=== PATIENT | female | born 1950 | race African-American/Black ===

== ENCOUNTER 2016-09-08 01:47 | Inpatient (IN) ==
[2016-09-08] MEDS ORDERED: fentaNYL 100 MCG/2 ML VIAL IM STA (02:10)
[2016-09-08] MEDS ORDERED: KETOROLAC 60 MG/2 ML VIAL IM STA (02:11)
[2016-09-08] MEDS ORDERED: ONDANSETRON 4 MG/2 ML VIAL IM STA (02:11)
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
[2016-09-08] MEDS ORDERED: ONDANSETRON 4 MG/2 ML VIAL ONE (02:40)
[2016-09-08] MEDS ORDERED: fentaNYL 100 MCG/2 ML VIAL ONE (02:40)
[2016-09-08] MEDS ORDERED: KETOROLAC 60 MG/2 ML VIAL IM ONE (02:40)
[2016-09-08] MEDS ORDERED: MORPHINE 2 MG/1 ML SYRINGE IV STA (02:46)
[2016-09-08] MEDS ORDERED: MORPHINE 2 MG/1 ML SYRINGE ONE (03:14)
[2016-09-08] MEDS ORDERED: GLUCAGON 1 MG VIAL IM PRN (03:24)
[2016-09-08] MEDS ORDERED: ONDANSETRON 4 MG/2 ML VIAL IV PRN (03:24)
[2016-09-08] MEDS ORDERED: DEXTROSE 50% 25 GM/50 ML VIAL IV PRN (03:24)
[2016-09-08] MEDS ORDERED: MORPHINE 2 MG/1 ML SYRINGE IV PRN (03:24)
[2016-09-08] MEDS ORDERED: ACETAMINOPHEN 325 MG TABLET PO PRN (03:26)
[2016-09-08] MEDS ORDERED: METHOCARBAMOL 500 MG TABLET PO PRN (03:26)
[2016-09-08] MEDS ORDERED: MECLIZINE 25 MG TABLET PO PRN (03:26)
[2016-09-08] MEDS ORDERED: SODIUM HYPOCHLORITE 0.25% IRRIG 473 ML BOTTLE TOP SCH (03:30)
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
[2016-09-08 04:10] LABS: Basophils % 0.4 % (0.0-0.8); Eosinophils # 0.1 10*3/uL (0.0-0.87); Eosinophils % 1.2 % (0.00-10.9); Hemoglobin 6.7 GM/DL (12.0-16.0); Immature Granulocytes % 0.5 %; Immature Granulocytes Absolute 0.04 #; Lymphocytes # 0.6 10*3/uL (1.4-4.0); Lymphocytes % 8.6 % (21.3-54.2); Mean Corpuscular HGB Conc 29.1 GM/DL (32-36); Mean Corpuscular Hemoglobin 28 PG (27-34); Mean Corpuscular Volume 96.6 FL (87-102); Mean Platelet Volume 10.6 FL (9.6-12.0); Monocytes # 0.6 10*3/uL (0.11-0.8); Monocytes % 7.6 % (1.7-12.7); Neutrophils % 81.7 % (38.7-73.9); Platelet Count 119 T/CUMM (130-400); Red Blood Count 2.38 MC/CUMM (3.8-5.5); Red Cell Distribution Width 16.3 % (9.3-17.3); White Blood Count 7.3 T/CUMM (4-12)
[2016-09-08 04:24] LABS: Calcium 7.8 MG/DL (8.5-10.1); Osmolality,Calculated 287.8 MOS/KG (273-304); Potassium 4.5 MMOL/L (3.5-5.1)
--- NOTE | 2016-09-08 08:17 | XRay Report ---
XR lumbar spine complete Indication: Back pain, history of injury Comparison: With similar appearance Findings: Compression fractures of T11 and L3 are present, the T11 height loss is estimated at 50%. L3 height loss is estimated at 50%. These were present on previous CT abdomen and pelvis. Remaining vertebral body heights and alignment are normal. The disc space heights are well-maintained. Small amount of facet joint degenerative change is present. Impression: No evidence of acute injury seen. Compression fractures are present with similar appearance to previous study. PROCEDURE INTERPRETED AT [facility] DEPARTMENT OF RADIOLOGY Final Report Signed by: Dr. Carlyle Contreras
[2016-09-08] MEDS ORDERED: METOPROLOL TARTRATE 25 MG TABLET PO SCH (09:00)
[2016-09-08] MEDS ORDERED: PANTOPRAZOLE 40 MG TABLET PO SCH (09:00)
[2016-09-08] MEDS ORDERED: ISOSORBIDE MONONITRATE 60 MG TABLET PO SCH (09:00)
[2016-09-08] MEDS ORDERED: AMIODARONE 200 MG TABLET PO SCH (09:00)
[2016-09-08] MEDS: CLOPIDOGREL 75 MG TABLET PO SCH (09:08)
[2016-09-08] MEDS: CHOLECALCIFEROL 1,000 UNIT TABLET PO SCH (09:08)
[2016-09-08] MEDS: PANTOPRAZOLE 40 MG TABLET PO SCH (09:08)
[2016-09-08] MEDS: ASPIRIN EC 81 MG TABLET PO SCH (09:09)
[2016-09-08] MEDS: SUCRALFATE 1 GM TABLET PO SCH ×2 (09:09→21:13)
[2016-09-08] MEDS: INSULIN ASPART PROTAMINE/ASPART 70/30 100 UNIT/ML SUBCUT SCH (09:09)
[2016-09-08] MEDS: INSULIN LISPRO 100 UNIT/ML SUBCUT SCH ×4 (09:10→21:13)
[2016-09-08] MEDS ORDERED: SODIUM CHLORIDE 0.9% 1,000 ML IV ONE (10:43)
[2016-09-08] MEDS ORDERED: SODIUM CHLORIDE 0.9% 250 ML IV PRN (10:43)
--- NOTE | 2016-09-08 11:17 | Pain Management Consult Note ---
Assessment and Plan (1) Compression fracture of L3 lumbar vertebra Status: Acute Assessment and plan: New T11 and L3 VCFx's post fall, have to consider metastatic dz with colon CA. She is on plavix and cannot hold. No options for kypkoplasty at this time. No LE weakness on exam I hate to put her through MRI at this time. Pain stable on [place]. Nothing further to offer at this point. Discussed with patient and . Current Visit: Yes History of Present Illness Chief complaint: Back pain post fall History of present illness: Ms. Fuchs is a 66 year old female we havent seen in a year for spondylosis and radiculitis, now diagnosed with colon CA s/p carotid endarterectomy 2 weeks and on plavix. Fell after weakness at home with onset T/L pain without radiation to legs. Home Medications Medication Instructions Recorded Confirmed Type Meclizine HCl 25 mg PO DAILY PRN 01/19/16 09/08/16 History hydrALAZINE TAB [Apresoline Tab] 100 mg PO TID #90 tablet 01/22/16 09/08/16 Rx Cholecalciferol [Vitamin D3] 1,000 unit PO DAILY 03/28/16 09/08/16 History Insulin Aspart Prot/Asp 70/30 10 unit SUBCUT QAM 03/28/16 09/08/16 History [NovoLOG Mix 70/30] Gabapentin 300 mg PO BEDTIME 03/29/16 09/08/16 History Atorvastatin [Lipitor] 20 mg PO BEDTIME tablet 04/08/16 09/08/16 Rx Amiodarone Tab [Cordarone Tab] 200 mg PO DAILY 06/22/16 09/08/16 History Benzoin Compound Tincture Spr 1 spray TOP DAILY 06/22/16 09/08/16 History [Benzoin Compound Tincture [place]] Epoetin Los [Procrit] 8,000 unit SUBCUT MOWEFR 06/22/16 09/08/16 History Methocarbamol Tab [Robaxin Tab] 500 mg PO TID PRN 06/22/16 09/08/16 History Pantoprazole Tab [Protonix Tab] 40 mg PO DAILY 06/22/16 09/08/16 History Skin Healing Oint (Aquaphor) 1 applic TOP DAILY 06/22/16 09/08/16 History [Aquaphor] Sodium Hypochlorite 0.25% Irr 1 applic TOP DIRECTED 06/22/16 09/08/16 History [[place] 1/2 Strength 0.25% Soln] HYDROcodone/ACETAMIN 7.5-325 1 tablet PO Q4H #14 tablet 07/20/16 09/08/16 Rx [[place] 7.5-325] Sucralfate Tab [Carafate Tab] 1 gm PO DAILY 08/08/16 09/08/16 History Acetaminophen Tab [Tylenol Tab] 650 mg PO Q4H PRN 08/19/16 09/08/16 History Isosorbide Mononitrate [Isosorbide 60 mg PO DAILY 08/19/16 09/08/16 History Mononitrate ER] Metoprolol Tartrate 25 mg PO QAM 08/19/16 09/08/16 History Aspirin [Ecotrin] 81 mg PO DAILY #60 tablet. 08/29/16 09/08/16 Rx Clopidogrel [Plavix] 75 mg PO DAILY #60 tablet 08/29/16 09/08/16 Rx Allergies Allergy/AdvReac Type Severity Reaction Status Date / Time No Known Allergies Allergy Verified 07/20/16 08:09 Medical,Surgical,& Family Hx - Medical History Cardio: History of: CHF, CAD, Hypertension, PVD No history of: [place] Psychological: History of: Anxiety Disorders, Depression Neurology: History of: Seizures, Vertigo HEENT: History of: Eye Problem (related to diabetes), Dental Problems Endocrine: History of: Diabetes Mellitus (IDDM), Diabetes Mellitus (NIDDM), Dyslipidemia Respiratory: History of: Respiratory Problems (chronic sob, chronic cough; congestion today) Renal: History of: Dialysis (CHEST CATHETERS AV FISTULA), Renal Failure, Renal Problems Gastrointestinal: History of: GERD, Hematochezia, Polyps, Gastrointestinal Cancer, GI Problems (HX BLOOD IN STOOL) Musculoskeletal: History of: Back/Neck Problems (Back pain), Degenerative Disk Disease No history of: Amputation Comment Only: Musculoskeletal Problems (ARTHRITIS) Hematology: History of: Anemia (chronic disease) No history of: Blood Transfusion Reaction Reproductive: No history of: Abnormal Pap Smear, Breast Cancer, Reproductive Cancer Other: No history of: Anesthesia Reactions, Cancer - Surgical History Cardiac Surgeries: Sugical HX of: Femoral-Popliteal Bypass Graft, Cardiac Catheterization, Cardiac Surgery (Bypass), Carotid Endarterectomy (08/24/16), Vascular Access Devices (dialysis graft LEFT arm; Dialysis catheters in right subclavin) Thoracic Surgeries: Patient denies;: Organ Transplant, Lobectomy Neurologic Surgeries: Patient denies: Neurologic Surgery HEENT Surgeries: Surgical HX of: Carotid Endarterectomy (08/24/16), Eye Surgery ( BILATERAL cataract sugery) Patient denies: Thyroid Surgery, Tonsilectomy & Adenoidectomy Abdominal Surgeries: Surgical HX of: Colonoscopy (PER DR WATKINS IN JULY), EGD Patient denies: Abdominal Surgery, Appendectomy, Cholecystectomy, Gastric Bypass Surgery, Hernia Repair Reproductive Surgeries: Surgical HX of;: Dilation and Curettage, Gynecologic Surgery Patient denies;: Genitourinary Surgery Orthopedic Surgeries: Surgical HX of;: Spinal Surgery (Injections for pain) Patient denies;: Orthopedic Surgery - Family History Family History: Reports;: Family Cancer (MOTHER (breast)), Family Diabetes ( Mother), Family Heart Disease (sister, brother), Family Hypertension (sister, brother) Denies;: Family Anesthesia Reaction, Family Psychiatric Problems, Family Stroke - Social History Smoking Status: Never smoker Frequency of Alcohol Use: None Type of Drug Use: None Exam - Constitutional Vitals: Period Temp Pulse Resp BP Sys/Willams Pulse Ox Last 24 Hr 97.8 F-98.4 F 57-58 18-18 142-143/42-56 99-99 Results - Labs CBC & BMP: 09/08/16 03:51 09/08/16 03:51 Specialty Discharge - Follow Up or Referrals
--- NOTE | 2016-09-08 12:12 | EKG Report ---
Stationary ECG Study [facility] Test Date: 09/08/2016 10:45:29 AM Pat Name: SIMONE NICKERSON Department: Room: 296 Gender: F Director Corporate: : [id number] Requested by: Sabiha Valentin Order Number: [id number] Reading MD: AARON RALPH Intervals [place] Rate: 39 P: -21 UT: 233 QRS: 98 QRSD: 118 T: 215 QT: 476 QTc: 404 Interpretive Statements SINUS BRADYCARDIA WITH FIRST DEGREE AV BLOCK MODERATE RIGHT AXIS DEVIATION CANNOT RULE OUT INFERIOR INFARCT, AGE UNDETERMINED IF PRESENT ABNORMALITY, POSSIBLE ANTEROLATERAL ISCHEMIA Electronically Signed On 09-12-16 11:51:42 CDT by AARON RALPH [email or web address]
--- NOTE | 2016-09-08 13:03 | Cardiology Consult Note ---
<Stacia Cancino E - Last Filed: 09/08/16 15:11> Assessment and Plan - Time spent with patient Time spent with patient: Greater than 30 minutes (1) Bradycardia Status: Acute Assessment and plan: See plan of care listed below Current Visit: Yes (2) CAD (coronary artery disease) Status: Chronic Assessment and plan: See plan of care listed below Current Visit: No Qualifiers: Coronary Disease-Associated Artery/Lesion type: [place] artery [place] vs. transplanted heart: [place] heart Associated angina: without angina Qualified Code(s): I25.10 - Atherosclerotic heart disease of [place] coronary artery without angina pectoris (3) Diabetes mellitus Status: Chronic Assessment and plan: See plan of care listed below Current Visit: No Qualifiers: Diabetes mellitus type: type 2 Diabetes mellitus complication detail: with chronic kidney disease Diabetes mellitus half-way insulin use: with terminal manager use Chronic kidney disease stage: on chronic dialysis (4) Essential hypertension Status: Chronic Assessment and plan: See plan of care listed below Current Visit: No (5) History of coronary artery bypass surgery Status: Chronic Assessment and plan: See plan of care listed below Current Visit: No (6) Anemia Problem details: transfused on 03/31/16; transfused during hospitalization of Jun 21, 2016 Status: Chronic Current Visit: No Qualifiers: Other causes of anemia: chronic disease, kidney (7) Stage 5 chronic kidney disease Status: Chronic Assessment and plan: See plan of care listed below Current Visit: No (8) PVD (peripheral vascular disease) Status: Chronic Assessment and plan: See plan of care listed below Current Visit: No (9) Atrial fibrillation Status: Chronic Assessment and plan: See plan of care listed below Current Visit: No Qualifiers: Atrial fibrillation type: paroxysmal Qualified Code(s): I48.0 - Paroxysmal atrial fibrillation (10) Dyslipidemia Status: Chronic Assessment and plan: See plan of care listed below Current Visit: No (11) TIA (transient ischemic attack) Status: Inactive Current Visit: No (12) Colon cancer Status: Acute Assessment and plan: See plan of care listed below Current Visit: Yes Qualifiers: Colon location: ascending Qualified Code(s): C18.2 - Malignant neoplasm of ascending colon (13) Status post carotid endarterectomy Status: Chronic Assessment and plan: See plan of care listed below Current Visit: No (14) Compression fracture of L3 lumbar vertebra Status: Acute Assessment and plan: See plan of care listed below Current Visit: Yes History of Present Illness - Data of Consult Patient: known to practice within the last 3 years Consult date: 09/08/16 Requesting Physician: Sabiha Valentin - Consult Narrative Reason for consult: bradycardia History of present illness: MANAGER QUALITY IMPROVEMENT: DR. RALPH Ms. Fuchs is a 66 year old female routinely followed by Dr. Ralph. She was last seen in cardiology clinic August 31, 2016. Risk factors include: Known coronary artery disease (status post CABG November 2005 with ANN to LAD, SVG to RCA , sequential SVG to OM1 and OM 2), hypertension, dyslipidemia, diabetes, sedentary lifestyle, PVD, and obesity. Patient has chronic renal insufficiency requiring hemodialysis, atrial fibrillation. Last cardiac workup ensued March 2016 as she underwent nuclear stress test revealing no evidence of reversible ischemia. This morning, cardiology was consulted for sinus bradycardia and hypotension. Patient had just received metoprolol orally when the condition occurred. Telemetry revealed sinus bradycardia, PVCs. Patient is currently being seen in hemodialysis and her heart rate is improving at this time. I discussed with Dr. Ralph, we will continue to hold her beta blockade. We will continue Amiodarone 200 mg orally daily and monitor closely. Patient denies chest pain, heaviness or tightness. She recently had TIA/stroke requiring right carotid endarterectomy. For this reason, she has been on Plavix. She is also severely anemic. She was found to have colon cancer with active rectal bleeding. She is scheduled for colon resection in a few weeks after Plavix has been discontinued. Unfortunately, patient fell last night at home and has developed a new compression fracture. Dr. Muhammad is seen her but cannot do kyphoplasty due to use of Plavix. Patient has received several units of packed red blood cells this morning. Blood pressure has improved since. ASSESSMENT/PLAN: 1. SINUS BRADYCARDIA -suspect this is not related to her metoprolol dosing. Will hold it continue the amiodarone and follow accordingly 2. HYPOTENSION -resolved after transfusions 3. KNOWN CAD (S/P CABG 2005) -no active complaints of chest pain 4. DYSLIPIDEMIA -continue lipid-lowering agent 5. ESRD ON HD -continue current plan of care 6. PVD -continue current plan of care 7. S/P RIGHT CEA -Dr. Aparicio monitor 8. DIABETIC FOOT ULCER -continue to treat according 9. COLON CANCER WITH RECTAL BLEEDING -on Plavix. 10. ACUTE LOOD LOSS ANEMIA - received transfusions will continue to follow accordingly 11. COMPLRESSION FRACTURE L3 LUMBAR VERTEBRA -appreciate pain management assistance CC: Sabiha Valentin MD - Home Medications and Allergies Home Medications: Home Medications Medication Instructions Recorded Confirmed Type Meclizine HCl 25 mg PO DAILY PRN 01/19/16 09/08/16 History hydrALAZINE TAB [Apresoline Tab] 100 mg PO TID #90 tablet 01/22/16 09/08/16 Rx Cholecalciferol [Vitamin D3] 1,000 unit PO DAILY 03/28/16 09/08/16 History Insulin Aspart Prot/Asp 70/30 10 unit SUBCUT QAM 03/28/16 09/08/16 History [NovoLOG Mix 70/30] Gabapentin 300 mg PO BEDTIME 03/29/16 09/08/16 History Atorvastatin [Lipitor] 20 mg PO BEDTIME tablet 04/08/16 09/08/16 Rx Amiodarone Tab [Cordarone Tab] 200 mg PO DAILY 06/22/16 09/08/16 History Benzoin Compound Tincture Spr 1 spray TOP DAILY 06/22/16 09/08/16 History [Benzoin Compound Tincture [place]] Epoetin Los [Procrit] 8,000 unit SUBCUT MOWEFR 06/22/16 09/08/16 History Methocarbamol Tab [Robaxin Tab] 500 mg PO TID PRN 06/22/16 09/08/16 History Pantoprazole Tab [Protonix Tab] 40 mg PO DAILY 06/22/16 09/08/16 History Skin Healing Oint (Aquaphor) 1 applic TOP DAILY 06/22/16 09/08/16 History [Aquaphor] Sodium Hypochlorite 0.25% Irr 1 applic TOP DIRECTED 06/22/16 09/08/16 History [Dakins 1/2 Strength 0.25% Soln] HYDROcodone/ACETAMIN 7.5-325 1 tablet PO Q4H #14 tablet 07/20/16 09/08/16 Rx [Salix 7.5-325] Sucralfate Tab [Carafate Tab] 1 gm PO DAILY 08/08/16 09/08/16 History Acetaminophen Tab [Tylenol Tab] 650 mg PO Q4H PRN 08/19/16 09/08/16 History Isosorbide Mononitrate [Isosorbide 60 mg PO DAILY 08/19/16 09/08/16 History Mononitrate ER] Metoprolol Tartrate 25 mg PO QAM 08/19/16 09/08/16 History Aspirin [Ecotrin] 81 mg PO DAILY #60 tablet. 08/29/16 09/08/16 Rx Clopidogrel [Plavix] 75 mg PO DAILY #60 tablet 08/29/16 09/08/16 Rx Allergies/Adverse Reactions: Allergies Allergy/AdvReac Type Severity Reaction Status Date / Time No Known Allergies Allergy Verified 07/20/16 08:09 Review of systems: REVIEW OF SYSTEMS: - Constitutional Constitutional: Present: Fatigue. Absent: syncope, anorexia, night sweats - EENT Eyes: Absent: blurry vision, loss of vision, diplopia Ears: Absent: decreased hearing, ear pain, ear discharge - Cardiovascular Cardiovascular: Denies: chest pain with exertion, dyspnea on exertion, edema, palpitations. Absent: chest pain with deep breath, claudication - Respiratory Respiratory: Denies [place], cough. Absent: wheezing, hemoptysis, change in phlegm color - Gastrointestinal Gastrointestinal: Present: constipation. Absent: abdominal pain, hematemesis , hematochezia, melena, change in bowel habits, nausea - Genitourinary Genitourinary: Absent: difficulty urinating, dysuria, urinary hesitancy, flank pain - Musculoskeletal Musculoskeletal: Present: back pain Absent: joint swelling, muscle cramps, muscle weakness - Neurological Neurological: Present: Abnormal gait with frequent falls. Absent: dizziness, hemiparesis - Psychiatric Psychiatric: Absent: anxiety, depression, difficulty concentrating - Endocrine Endocrine: Present: fatigue. Absent: cold intolerance, heat intolerance, polyuria, polyphagia, polydipsia - Hematologic/Lymphatic Hematologic/Lymphatic: Present: easy bruising. Absent: easy bleeding, easy bruisability -Integumentary Integumentary: Continued poor healing of the bilateral lower extremity absent: lesions, rashes Medical,Surgical,& Family Hx - Medical History Cardio: History of: CHF, CAD, Hypertension, PVD No history of: PA Psychological: History of: Anxiety Disorders, Depression Neurology: History of: Seizures, Vertigo HEENT: History of: Eye Problem (related to diabetes), Dental Problems Endocrine: History of: Diabetes Mellitus (IDDM), Diabetes Mellitus (NIDDM), Dyslipidemia Respiratory: History of: Respiratory Problems (chronic sob, chronic cough; congestion today) Renal: History of: Dialysis (CHEST CATHETERS AV FISTULA), Renal Failure, Renal Problems Gastrointestinal: History of: GERD, Hematochezia, Polyps, Gastrointestinal Cancer, GI Problems (HX BLOOD IN STOOL) Musculoskeletal: History of: Back/Neck Problems (Back pain), Degenerative Disk Disease No history of: Amputation Comment Only: Musculoskeletal Problems (ARTHRITIS) Hematology: History of: Anemia (chronic disease) No history of: Blood Transfusion Reaction Reproductive: No history of: Abnormal Pap Smear, Breast Cancer, Reproductive Cancer Other: No history of: Anesthesia Reactions, Cancer - Surgical History Cardiac Surgeries: Sugical HX of: Femoral-Popliteal Bypass Graft, Cardiac Catheterization, Cardiac Surgery (Bypass), Carotid Endarterectomy (08/24/16), Vascular Access Devices (dialysis graft LEFT arm; Dialysis catheters in right subclavin) Thoracic Surgeries: Patient denies;: Organ Transplant, Lobectomy Neurologic Surgeries: Patient denies: Neurologic Surgery HEENT Surgeries: Surgical HX of: Carotid Endarterectomy (08/24/16), Eye Surgery ( BILATERAL cataract sugery) Patient denies: Thyroid Surgery, Tonsilectomy & Adenoidectomy Abdominal Surgeries: Surgical HX of: Colonoscopy (PER DR WATKINS IN JULY), EGD Patient denies: Abdominal Surgery, Appendectomy, Cholecystectomy, Gastric Bypass Surgery, Hernia Repair Reproductive Surgeries: Surgical HX of;: Dilation and Curettage, Gynecologic Surgery Patient denies;: Genitourinary Surgery Orthopedic Surgeries: Surgical HX of;: Spinal Surgery (Injections for pain) Patient denies;: Orthopedic Surgery - Family History Family History: Reports;: Family Cancer (MOTHER (breast)), Family Diabetes ( Mother), Family Heart Disease (sister, brother), Family Hypertension (sister, brother) Denies;: Family Anesthesia Reaction, Family Psychiatric Problems, Family Stroke - Social History Smoking Status: Never smoker Have you smoked in the last 12 months: No Frequency of Alcohol Use: None Type of Drug Use: None Physical Examination Vital Signs Temp Pulse Resp BP Pulse Ox 98 F 55 L 20 115/48 97 09/08/16 01:47 09/08/16 01:47 09/08/16 01:47 09/08/16 01:47 09/08/16 01:47 General: [Chronically ill but in no apparent distress.] [Pleasant and cooperative. ] [Appears comfortable.] HEENT: [Bilateral arcus, normocephalic, atraumatic. Mucous membranes moist. No jaundice noted. Conjunctiva moist and clear, sclerae anicteric] Neck: No obvious JVD/HJR, no thyromegaly or lymphadenopathy noted. No carotid bruit appreciated. Right neck incision healing well without dehiscence or drainage Cardiac: [Regular rate and rhythm.] [No obvious murmur rub or gallop.] Lungs: [Clear to auscultation without accessory muscle use to assist the respiratory pattern.] Not requiring oxygen Abdomen: Soft, bowel sounds normoactive. Nontender and nondistended. No abdominal bruit or thrill noted. Musculoskeletal: No fluid collection. Decreased range of motion is noted. Extremities: No clubbing, cyanosis noted. [ No edema noted.] Upper extremity pulses 2+. Bilateral lower extremities wrapped in bandages. Capillary refill sluggish. Skin: No unusual lesions or rashes. No skin breakdown appreciated. Neuro: Awake, alert and oriented 3. Moves all extremities well without hemiparesis or paralysis. No essential tremor is appreciated. Result/EKG - Labs CBC & BMP: 09/08/16 03:51 09/08/16 12:27 Lab Results: I have reviewed the past 24 hour labs Labs: Laboratory Results - last 24 hr 09/08/16 09/08/16 09/08/16 03:51 03:51 07:13 WBC 7.3 RBC 2.38 L Hgb 6.7 L Hct 23.0 L MCV 96.6 MCH 28 MCHC 29.1 L RDW 16.3 Plt Count 119 L MPV 10.6 Neut % (Auto) 81.7 H Lymph % (Auto) 8.6 L Nance % (Auto) 7.6 Eos % (Auto) 1.2 Baso % (Auto) 0.4 Neut # (Auto) 6.0 Lymph # (Auto) 0.6 L Nance # (Auto) 0.6 Eos # (Auto) 0.1 Baso # (Auto) 0.0 Immature Gran % 0.5 Nucleated RBC % 0.0 Immature Gran # 0.04 Nucleated RBCs # 0.00 Sodium 137 Potassium 4.5 Chloride 99 Carbon Dioxide 29 Anion Gap 13.5 BUN 31 H Creatinine 4.60 H GFR Calculation 13 BUN/Creatinine Ratio 6.00 Glucose 235 H POC Glucose 213 H Calculated Osmolality 287.8 Calcium 7.8 L Blood Type Antibody Screen Crossmatch 09/08/16 09/08/16 09/08/16 12:30 12:54 Unknown WBC RBC Hgb Hct MCV MCH MCHC RDW Plt Count MPV Neut % (Auto) Lymph % (Auto) Nance % (Auto) Eos % (Auto) Baso % (Auto) Neut # (Auto) Lymph # (Auto) Nance # (Auto) Eos # (Auto) Baso # (Auto) Immature Gran % Nucleated RBC % Immature Gran # Nucleated RBCs # Sodium Potassium Chloride Carbon Dioxide Anion Gap BUN Creatinine GFR Calculation BUN/Creatinine Ratio Glucose POC Glucose 58 L 126 H Calculated Osmolality Calcium Blood Type B POSITIVE Antibody Screen Negative Crossmatch See Detail - EKG EKG results: interpreted by me EKG shows: bradycardia Specialty Discharge - Follow Up or Referrals <Aravind Ralph - Last Filed: 09/08/16 16:31> History of Present Illness - Consult Narrative History of present illness: Patient personally interviewed and examined and chart reviewed. Discussed the patient's case with Stacia Cancino NP. Agree with a history, examination assessment. Ms. Fuchs is a 66 year old female well known to me with multiple medical problems including coronary disease. The last few months she has had a cardiac perfusion study that was unremarkable and stable. There is no perfusion abnormalities. As noted the patient was admitted with severe back pain. This morning she was noted to have some bradycardia then review the chart may have well been secondary to her morning metoprolol. We will hold her metoprolol and continue other medications and monitor heart rates. She also severely anemic and has received blood on dialysis today. Her potassium was low is being replaced. We will continue her amiodarone at this time with her history of atrial fibrillation. CC: Sabiha Valentin MD Physical Examination Vital Signs Temp Pulse Resp BP Pulse Ox 98 F 55 L 20 115/48 97 09/08/16 01:47 09/08/16 01:47 09/08/16 01:47 09/08/16 01:47 09/08/16 01:47 Result/EKG - Labs CBC & BMP: 09/08/16 03:51 09/08/16 12:27 Labs: Laboratory Results - last 24 hr 09/08/16 09/08/16 09/08/16 03:51 03:51 07:13 WBC 7.3 RBC 2.38 L Hgb 6.7 L Hct 23.0 L MCV 96.6 MCH 28 MCHC 29.1 L RDW 16.3 Plt Count 119 L MPV 10.6 Neut % (Auto) 81.7 H Lymph % (Auto) 8.6 L Nance % (Auto) 7.6 Eos % (Auto) 1.2 Baso % (Auto) 0.4 Neut # (Auto) 6.0 Lymph # (Auto) 0.6 L Nance # (Auto) 0.6 Eos # (Auto) 0.1 Baso # (Auto) 0.0 Immature Gran % 0.5 Nucleated RBC % 0.0 Immature Gran # 0.04 Nucleated RBCs # 0.00 Sodium 137 Potassium 4.5 Chloride 99 Carbon Dioxide 29 Anion Gap 13.5 BUN 31 H Creatinine 4.60 H GFR Calculation 13 BUN/Creatinine Ratio 6.00 Glucose 235 H POC Glucose 213 H Calculated Osmolality 287.8 Calcium 7.8 L Magnesium Free T4 TSH 3rd Generation Blood Type Antibody Screen Crossmatch 09/08/16 09/08/16 09/08/16 12:27 12:27 12:30 WBC RBC Hgb Hct MCV MCH MCHC RDW Plt Count MPV Neut % (Auto) Lymph % (Auto) Nance % (Auto) Eos % (Auto) Baso % (Auto) Neut # (Auto) Lymph # (Auto) Nance # (Auto) Eos # (Auto) Baso # (Auto) Immature Gran % Nucleated RBC % Immature Gran # Nucleated RBCs # Sodium 140 Potassium 3.4 L Chloride 102 Carbon Dioxide 30 Anion Gap 11.4 BUN 24 H Creatinine 3.30 H GFR Calculation 19 BUN/Creatinine Ratio 7.00 Glucose 62 L POC Glucose 58 L Calculated Osmolality 280.4 Calcium 7.4 L Magnesium 2.2 Free T4 1.22 TSH 3rd Generation 0.636 Blood Type Antibody Screen Crossmatch 09/08/16 09/08/16 09/08/16 12:54 15:31 Unknown WBC RBC Hgb Hct MCV MCH MCHC RDW Plt Count MPV Neut % (Auto) Lymph % (Auto) Nance % (Auto) Eos % (Auto) Baso % (Auto) Neut # (Auto) Lymph # (Auto) Nance # (Auto) Eos # (Auto) Baso # (Auto) Immature Gran % Nucleated RBC % Immature Gran # Nucleated RBCs # Sodium Potassium Chloride Carbon Dioxide Anion Gap BUN Creatinine GFR Calculation BUN/Creatinine Ratio Glucose POC Glucose 126 H 148 H Calculated Osmolality Calcium Magnesium Free T4 TSH 3rd Generation Blood Type B POSITIVE Antibody Screen Negative Crossmatch See Detail
[2016-09-08 13:04] LABS: Calcium 7.4 MG/DL (8.5-10.1); Magnesium 2.2 MG/DL (1.8-2.4); Osmolality,Calculated 280.4 MOS/KG (273-304); Potassium 3.4 MMOL/L (3.5-5.1)
[2016-09-08 13:36] LABS: Free T4 (Free Thyroxine) 1.22 NG/DL (0.76-1.46); Thyroid Stimulating Hormone 0.636 uIU/ml (0.358-3.74)
[2016-09-08] MEDS ORDERED: HEPARIN 10,000 UNIT/10 ML VIAL IV SCH (14:00)
--- NOTE | 2016-09-08 14:07 | Hospitalist Progress Note ---
Assessment and Plan - Time spent with patient Time spent with patient: Greater than 30 minutes (at the bedside, reviewing records, care coordination with cardiology and surgery, documentation and orders - 45 minutes) (1) Hypotension Status: Acute Assessment and plan: 1)hypotension and bradycardia- due to meds- antiHTN and pain meds. improved after dialysis and IVF bolus and transfusion. Continue to monitor. Use morphine prn for pain. 2)colon cancer with acute blood loss anemia- transfused [address] Rivera to do resection when she is able to be off the plavix. May have mets to spine- check bone scan to see if there are other suspicious places. 3)ESRD- HD on 4)recent CEA- consult to Dr Delcid to consider when it is ok to stop her plavix so that other procedures can be done 5)diabetic foot ulcer- wound vac, followed by Dr Rivera. 6)pain control for compression fracture- discussed with Dr Muhammad who recommends stopping morphine and using norco prn. If that isn't enough can change to percocet. Current Visit: Yes (2) Bradycardia Status: Acute Current Visit: Yes (3) PVD (peripheral vascular disease) Status: Chronic Current Visit: No (4) ESRD on hemodialysis Status: Chronic Current Visit: No (5) Acute blood loss anemia Status: Acute Current Visit: No (6) Colon cancer Status: Acute Current Visit: Yes Qualifiers: Colon location: ascending Qualified Code(s): C18.2 - Malignant neoplasm of ascending colon (7) Status post carotid endarterectomy Status: Acute Current Visit: No (8) Diabetic foot ulcer Status: Chronic Current Visit: No (9) Compression fracture of L3 lumbar vertebra Status: Acute Current Visit: Yes (10) Intractable back pain Status: Acute Current Visit: Yes Hospitalist: Subjective Interval history: I was called to see Mrs Fuchs urgently this morning because not long after her morning meds including pain meds, her heart rate dropped to 39 and her SBP to the 80s. She was drowsy but woke easily and was able to answer all my questions- she is a good historian. Her BP came up after IVF bolus and conversation but her heart rate remained low. Her BP dropped again. I spent 30 minutes at her bedside. She is anemic form chronic blood loss related to colon cancer (she had "old blood" inher stool last week), and is on HD T//Mon. She had an CEA 2 weeks ago (and stroke not too long before that) and is on Plavix following that procedure. Colon cancer resection was planned for a few weeks from now after plavix was stopped. She also started HD in May, and has ?gangrenous diabetic wound on left foot. She was admitted last night because she fell and developed new compression fractures. Dr Muhammad has seen her but can't do kyphoplasty to relieve her pain because she is on plavix and these may be due to metastatic colon cancer. She went to dialysis where she was transfused and her BP and heart rate came up. I have consulted Dr Delcid for his opinion regarding stopping the plavix, and Dr Rivera (who will do her colon surgery) saw her yesterday. Also cardiology will see her- she sees Dr Balderas in the clinic and was recently given a good report. She had CABG 2005. I have held her narcotics and antiHTN meds for now while we observe what her BP does after dialysis and transfusion. Exam - Constitutional Vitals: Period Temp Pulse Resp BP Sys/Willams Pulse Ox Last 24 Hr 97.8 F-98.4 F 32-58 18-18 89-143/38-56 95-99 General appearance: mild distress (tearful as she recounted her medical events since may including starting dialysis, stroke, CEA, and diagnosis of colon cancer.), over weight - Head Head exam: Present: normocephalic, atraumatic - Eye Eye exam: Present: EOMI. Absent: scleral icterus Pupils: Present: MART - Respiratory Respiratory exam: Present: clear to auscultation bilaterally - Cardiovascular Cardiovascular exam: Present: bradycardia - GI/Abdominal GI/Abdominal exam: Present: normal bowel sounds, soft. Absent: tenderness - Extremities Exam Extremities exam: Present: other (wound vac on her left foot where she has gangrene. both legs wrapped in compression dressings.). Absent: edema - Neurological Exam Neurological exam: Present: alert, oriented X3, CN II-XII intact. Absent: motor sensory deficit - Psychiatric Psychiatric exam: Present: other (sad) - Skin Skin exam: Present: warm, dry Results - Labs CBC & BMP: 09/08/16 03:51 09/08/16 12:27 Lab Results: I have reviewed the past 24 hour labs Specialty Discharge - Follow Up or Referrals
--- NOTE | 2016-09-08 15:28 | Nephrology Consult Note ---
History of Present Illness Chief complaint: back pain. ESRD History of present illness: Ms. Fuchs is a 66 year old female well known to me. She has ESRD secondary to diabetes. She was recently hospitalized for carotid artery stenosis and underwent right CEA 2 weeks ago. She presented with low back pain. Evaluation revealed L3 compression fracture. She reports having rectal bleeding 2 days ago. She has recently diagnosed colon cancer. Surgery for her colon lesion was postponed because of need for carotid surgery. Home Medications Medication Instructions Recorded Confirmed Type Meclizine HCl 25 mg PO DAILY PRN 01/19/16 09/08/16 History hydrALAZINE TAB [Apresoline Tab] 100 mg PO TID #90 tablet 01/22/16 09/08/16 Rx Cholecalciferol [Vitamin D3] 1,000 unit PO DAILY 03/28/16 09/08/16 History Insulin Aspart Prot/Asp 70/30 10 unit SUBCUT QAM 03/28/16 09/08/16 History [NovoLOG Mix 70/30] Gabapentin 300 mg PO BEDTIME 03/29/16 09/08/16 History Atorvastatin [Lipitor] 20 mg PO BEDTIME tablet 04/08/16 09/08/16 Rx Amiodarone Tab [Cordarone Tab] 200 mg PO DAILY 06/22/16 09/08/16 History Benzoin Compound Tincture Spr 1 spray TOP DAILY 06/22/16 09/08/16 History [Benzoin Compound Tincture [place]] Epoetin Lso [Procrit] 8,000 unit SUBCUT MOWEFR 06/22/16 09/08/16 History Methocarbamol Tab [Robaxin Tab] 500 mg PO TID PRN 06/22/16 09/08/16 History Pantoprazole Tab [Protonix Tab] 40 mg PO DAILY 06/22/16 09/08/16 History Skin Healing Oint (Aquaphor) 1 applic TOP DAILY 06/22/16 09/08/16 History [Aquaphor] Sodium Hypochlorite 0.25% Irr 1 applic TOP DIRECTED 06/22/16 09/08/16 History [Dakins 1/2 Strength 0.25% Soln] HYDROcodone/ACETAMIN 7.5-325 1 tablet PO Q4H #14 tablet 07/20/16 09/08/16 Rx [Tryon 7.5-325] Sucralfate Tab [Carafate Tab] 1 gm PO DAILY 08/08/16 09/08/16 History Acetaminophen Tab [Tylenol Tab] 650 mg PO Q4H PRN 08/19/16 09/08/16 History Isosorbide Mononitrate [Isosorbide 60 mg PO DAILY 08/19/16 09/08/16 History Mononitrate ER] Metoprolol Tartrate 25 mg PO QAM 08/19/16 09/08/16 History Aspirin [Ecotrin] 81 mg PO DAILY #60 tablet. 08/29/16 09/08/16 Rx Clopidogrel [Plavix] 75 mg PO DAILY #60 tablet 08/29/16 09/08/16 Rx Allergies Allergy/AdvReac Type Severity Reaction Status Date / Time No Known Allergies Allergy Verified 07/20/16 08:09 Medical,Surgical,& Family Hx - Medical History Cardio: History of: CHF, CAD, Hypertension, PVD No history of: [place] Psychological: History of: Anxiety Disorders, Depression Neurology: History of: Seizures, Vertigo HEENT: History of: Eye Problem (related to diabetes), Dental Problems Endocrine: History of: Diabetes Mellitus (IDDM), Diabetes Mellitus (NIDDM), Dyslipidemia Respiratory: History of: Respiratory Problems (chronic sob, chronic cough; congestion today) Renal: History of: Dialysis (CHEST CATHETERS AV FISTULA), Renal Failure, Renal Problems Gastrointestinal: History of: GERD, Hematochezia, Polyps, Gastrointestinal Cancer, GI Problems (HX BLOOD IN STOOL) Musculoskeletal: History of: Back/Neck Problems (Back pain), Degenerative Disk Disease No history of: Amputation Comment Only: Musculoskeletal Problems (ARTHRITIS) Hematology: History of: Anemia (chronic disease) No history of: Blood Transfusion Reaction Reproductive: No history of: Abnormal Pap Smear, Breast Cancer, Reproductive Cancer Other: No history of: Anesthesia Reactions, Cancer - Surgical History Cardiac Surgeries: Sugical HX of: Femoral-Popliteal Bypass Graft, Cardiac Catheterization, Cardiac Surgery (Bypass), Carotid Endarterectomy (08/24/16), Vascular Access Devices (dialysis graft LEFT arm; Dialysis catheters in right subclavin) Thoracic Surgeries: Patient denies;: Organ Transplant, Lobectomy Neurologic Surgeries: Patient denies: Neurologic Surgery HEENT Surgeries: Surgical HX of: Carotid Endarterectomy (08/24/16), Eye Surgery ( BILATERAL cataract sugery) Patient denies: Thyroid Surgery, Tonsilectomy & Adenoidectomy Abdominal Surgeries: Surgical HX of: Colonoscopy (PER DR WATKINS IN JULY), EGD Patient denies: Abdominal Surgery, Appendectomy, Cholecystectomy, Gastric Bypass Surgery, Hernia Repair Reproductive Surgeries: Surgical HX of;: Dilation and Curettage, Gynecologic Surgery Patient denies;: Genitourinary Surgery Orthopedic Surgeries: Surgical HX of;: Spinal Surgery (Injections for pain) Patient denies;: Orthopedic Surgery - Family History Family History: Reports;: Family Cancer (MOTHER (breast)), Family Diabetes ( Mother), Family Heart Disease (sister, brother), Family Hypertension (sister, brother) Denies;: Family Anesthesia Reaction, Family Psychiatric Problems, Family Stroke - Social History Smoking Status: Never smoker Frequency of Alcohol Use: None Type of Drug Use: None Review of Systems 12 point system: reviewed and no additional remarkable complaints except as stated Exam - Vital Signs Vital signs: Period Temp Pulse Resp BP Sys/Willams Pulse Ox Last 24 Hr 97.8 F-98.4 F 32-58 18-18 89-143/38-56 95-99 Exam: Gen.: Alert and oriented x3. ENT: Pupils equal round reactive to light. EOMs intact. Mucous membranes moist. Neck: Supple. No JVD or bruit. Healing right CEA scar. Cardiovascular: Regular rate and rhythm. No murmur rub or gallop Lungs: Clear Abdomen: Soft. Nontender. Positive bowel sounds. No organomegaly Extremities: Trace edema Results - Labs CBC & BMP: 09/09/16 03:42 09/09/16 03:42 Assessment and Plan (1) ESRD (end stage renal disease) on dialysis Problem details: Routine CHD today. Orders written. Status: Chronic Assessment and plan: 66-year-old woman admitted with: * Compression fracture L3 * ESRD. Seen during dialysis. Blood pressure stable * Diabetes mellitus * Hypertension * CAD * Peripheral vascular disease * Colon cancer * Recent right CEA Current Visit: Yes (2) Colon cancer Status: Acute Current Visit: Yes Qualifiers: Colon location: ascending Qualified Code(s): C18.2 - Malignant neoplasm of ascending colon (3) Compression fracture of L3 lumbar vertebra Status: Acute Current Visit: Yes (4) Essential (primary) hypertension Status: Chronic Current Visit: Yes (5) CAD (coronary artery disease) Status: Chronic Current Visit: No Qualifiers: Coronary Disease-Associated Artery/Lesion type: [place] artery [place] vs. transplanted heart: [place] heart Associated angina: without angina Qualified Code(s): I25.10 - Atherosclerotic heart disease of [place] coronary artery without angina pectoris (6) Diabetes mellitus Status: Chronic Current Visit: No Qualifiers: Diabetes mellitus type: type 2 Diabetes mellitus complication detail: with chronic kidney disease Diabetes mellitus fdc insulin use: with fdc use Chronic kidney disease stage: on chronic dialysis (7) PVD (peripheral vascular disease) Status: Chronic Current Visit: No Specialty Discharge - Follow Up or Referrals
[2016-09-08] MEDS: BENZOIN TOP SCH (16:36)
[2016-09-08] MEDS: SKIN HEALING OINT (AQUAPHOR) 50 GM TUBE TOP SCH (16:36)
[2016-09-08] MEDS: SODIUM HYPOCHLORITE 0.25% IRRIG 473 ML BOTTLE TOP SCH (16:36)
[2016-09-08] MEDS: ATORVASTATIN 20 MG TABLET PO SCH (21:13)
[2016-09-08] MEDS: GABAPENTIN 300 MG CAPSULE PO SCH (21:16)
[2016-09-09 04:24] LABS: Basophils % 0.6 % (0.0-0.8); Eosinophils # 0.2 10*3/uL (0.0-0.87); Eosinophils % 3.7 % (0.00-10.9); Hemoglobin 8.3 GM/DL (12.0-16.0); Immature Granulocytes % 0.2 %; Immature Granulocytes Absolute 0.01 #; Lymphocytes # 1.1 10*3/uL (1.4-4.0); Lymphocytes % 20.8 % (21.3-54.2); Mean Corpuscular HGB Conc 29.6 GM/DL (32-36); Mean Corpuscular Hemoglobin 28 PG (27-34); Mean Corpuscular Volume 95.9 FL (87-102); Monocytes # 0.6 10*3/uL (0.11-0.8); Monocytes % 10.2 % (1.7-12.7); Neutrophils # 3.5 10*3/uL (1.4-7.4); Neutrophils % 64.5 % (38.7-73.9); Platelet Count 125 T/CUMM (130-400); Red Blood Count 2.92 MC/CUMM (3.8-5.5); White Blood Count 5.4 T/CUMM (4-12)
[2016-09-09 05:12] LABS: Calcium 8.2 MG/DL (8.5-10.1); Magnesium 2.5 MG/DL (1.8-2.4); Osmolality,Calculated 281.4 MOS/KG (273-304); Potassium 4.4 MMOL/L (3.5-5.1)
[2016-09-09] MEDS: INSULIN LISPRO 100 UNIT/ML SUBCUT SCH ×4 (08:27→20:28)
[2016-09-09] MEDS: AMIODARONE 200 MG TABLET PO SCH (09:16)
[2016-09-09] MEDS: ASPIRIN EC 81 MG TABLET PO SCH (09:16)
[2016-09-09] MEDS: CLOPIDOGREL 75 MG TABLET PO SCH (09:16)
[2016-09-09] MEDS: SUCRALFATE 1 GM TABLET PO SCH ×2 (09:16→20:28)
[2016-09-09] MEDS: CHOLECALCIFEROL 1,000 UNIT TABLET PO SCH (09:16)
[2016-09-09] MEDS: PANTOPRAZOLE 40 MG TABLET PO SCH (09:16)
[2016-09-09] MEDS: INSULIN ASPART PROTAMINE/ASPART 70/30 100 UNIT/ML SUBCUT SCH (09:16)
[2016-09-09] MEDS: BENZOIN TOP SCH (09:20)
[2016-09-09] MEDS: SKIN HEALING OINT (AQUAPHOR) 50 GM TUBE TOP SCH (09:20)
[2016-09-09] MEDS: SODIUM HYPOCHLORITE 0.25% IRRIG 473 ML BOTTLE TOP SCH (09:21)
[2016-09-09] MEDS: EPOETIN ALFA 10,000 UNIT/1 ML VIAL SUBCUT SCH (10:41)
--- NOTE | 2016-09-09 10:43 | Nuclear Medicine Report ---
NM bone scan whole body Indication: Colon cancer, compression fracture Findings: Patient was injected with 30.0 millicuries of technetium 99m MDP intravenously. Total body anterior posterior images were obtained. There are multiple levels of faint increased activity in the lower thoracic and lumbar spine, involving with the vertebral bodies on the AP view. Otherwise is normal axial and appendicular osseous uptake. No other abnormally increased or decreased areas of activity are demonstrated. Renal activity is diminished. Normal amount of soft tissue uptake is seen. Impression: Faint increased activity in multiple vertebra of the lower thoracic and lumbar spine. These appear to involve the with the vertebra and could indicate degenerative changes are compression fracture. MRI may be useful to further evaluate these areas. Diminished renal activity, could indicate renal dysfunction. PROCEDURE INTERPRETED AT [facility] DEPARTMENT OF RADIOLOGY Final Report Signed by: Dr. Carlyle Contreras
--- NOTE | 2016-09-09 12:52 | Cardiology Progress Note ---
<Stacia Cancino E - Last Filed: 09/09/16 12:44> Assessment and Plan (1) Bradycardia Status: Chronic Assessment and plan: See plan of care listed below Current Visit: Yes (2) CAD (coronary artery disease) Status: Chronic Assessment and plan: See plan of care listed below Current Visit: No Qualifiers: Coronary Disease-Associated Artery/Lesion type: [place] artery [place] vs. transplanted heart: [place] heart Associated angina: without angina Qualified Code(s): I25.10 - Atherosclerotic heart disease of [place] coronary artery without angina pectoris (3) Diabetes mellitus Status: Chronic Assessment and plan: See plan of care listed below Current Visit: No Qualifiers: Diabetes mellitus type: type 2 Diabetes mellitus complication detail: with chronic kidney disease Diabetes mellitus long term care administrator insulin use: with long term care administrator use Chronic kidney disease stage: on chronic dialysis (4) Essential hypertension Status: Chronic Assessment and plan: See plan of care listed below Current Visit: No (5) History of coronary artery bypass surgery Status: Chronic Assessment and plan: See plan of care listed below Current Visit: No (6) Anemia Problem details: transfused on 03/31/16; transfused during hospitalization of Jun 21, 2016 Status: Chronic Current Visit: No Qualifiers: Other causes of anemia: chronic disease, kidney (7) Stage 5 chronic kidney disease Status: Chronic Assessment and plan: See plan of care listed below Current Visit: No (8) PVD (peripheral vascular disease) Status: Chronic Assessment and plan: See plan of care listed below Current Visit: No (9) Atrial fibrillation Status: Chronic Assessment and plan: See plan of care listed below Current Visit: No Qualifiers: Atrial fibrillation type: paroxysmal Qualified Code(s): I48.0 - Paroxysmal atrial fibrillation (10) Dyslipidemia Status: Chronic Assessment and plan: See plan of care listed below Current Visit: No (11) TIA (transient ischemic attack) Status: Inactive Current Visit: No (12) Colon cancer Status: Acute Assessment and plan: See plan of care listed below Current Visit: Yes Qualifiers: Colon location: ascending Qualified Code(s): C18.2 - Malignant neoplasm of ascending colon (13) Status post carotid endarterectomy Status: Chronic Assessment and plan: See plan of care listed below Current Visit: No (14) Compression fracture of L3 lumbar vertebra Status: Acute Assessment and plan: See plan of care listed below Current Visit: Yes Cardiology - PN: Subj Interval history: CERAMIC COATER: DR. RALPH SUMMARY: Ms. Fuchs is a 66 year old female routinely followed by Dr. Ralph. She was last seen in cardiology clinic August 31, 2016. Risk factors include: Known coronary artery disease (status post CABG November 2005 with ANN to LAD, SVG to RCA, sequential SVG to OM1 and OM 2), hypertension, dyslipidemia, diabetes, sedentary lifestyle, PVD, and obesity. Patient has chronic renal insufficiency requiring hemodialysis, atrial fibrillation. Last cardiac workup ensued March 2016 as she underwent nuclear stress test revealing no evidence of reversible ischemia. Cardiology was consulted for sinus bradycardia and hypotension. Patient had just received metoprolol orally when the condition occurred. Telemetry revealed sinus bradycardia, PVCs. Patient was scheduled for, and underwent, hemodialysis shortly thereafter and her heart rate improved. She did require transfusions of packed red blood cells and her hypotension also resolved. We did hold her beta blockade but did continue her Amiodarone 200 mg orally daily. DAY 1, SEPTEMBER 09, 2016: Overnight, she has done well. Heart rates averaging 50s. This morning she is feeling much better. Prior to coming to the hospital , she did fall and suffered a compression fracture. Dr. Muhammad is treating medically as he cannot perform kyphoplasty due to the use of Plavix status post right carotid endarterectomy. She underwent a bone scan this morning and the fracture is contained. Unfortunately, patient was recently found to have colon cancer and now having rectal bleeding. She is scheduled for colon resection in a few weeks after her Plavix has been discontinued. ASSESSMENT/PLAN: 1. SINUS BRADYCARDIA - improved after holding beta blockade. Tolerating amiodarone 200 mg orally daily. Continue to follow her time 2. HYPOTENSION - resolved after transfusions 3. KNOWN CAD (S/P CABG 2005) - no active complaints of chest pain 4. DYSLIPIDEMIA - continue lipid-lowering agent 5. ESRD ON HD - continue current plan of care 6. PVD - continue current plan of care 7. S/P RIGHT CEA - on Plavix, ASA. May be safe to stop Plavix but will defer to Dr. Delcid. 8. DIABETIC FOOT ULCER - continue to treat according 9. COLON CANCER WITH RECTAL BLEEDING - on Plavix. 10. ACUTE BLOOD LOSS ANEMIA - received transfusions recently and has improved overnight. 11. COMPRESSION FRACTURE L3 LUMBAR VERTEBRA - appreciate pain management assistance Exam (Progress Note) - Constitutional Vitals: Period Temp Pulse Resp BP Sys/Willams Pulse Ox Last 24 Hr 97.3 F-99.2 F 40-59 16-18 109-139/47-76 92-100 Exam: General: [Appears well with no apparent distress.] [Pleasant and cooperative. ] [Appears comfortable.] HEENT: [PERRL, normocephalic, atraumatic. Mucous membranes moist. No jaundice noted. Conjunctiva moist and clear, sclerae anicteric] Neck: No JVD/HJR, no thyromegaly or lymphadenopathy noted. No carotid bruit appreciated Cardiac: [Regular rate and rhythm.] [No murmur rub or gallop.] Lungs: [Clear to auscultation without accessory muscle use to assist the respiratory pattern.] Not requiring oxygen Abdomen: Soft, bowel sounds normoactive. Nontender and nondistended. No abdominal bruit or thrill noted. No masses noted. Musculoskeletal: No fluid collection. Decreased range of motion is noted. Extremities: No clubbing, cyanosis noted. [ No edema noted.] Upper extremity pulses 2+. Lower extremity pulses 2+. Capillary refill less than 3 seconds. Skin: No unusual lesions or rashes. No skin breakdown appreciated. Neuro: Awake, alert and oriented 3. Moves all extremities well without hemiparesis or paralysis. No essential tremor is appreciated. Result/EKG - Labs CBC & BMP: 09/09/16 03:42 09/09/16 03:42 Lab Results: I have reviewed the past 24 hour labs Labs: Laboratory Results - last 24 hr 09/08/16 09/08/16 09/08/16 12:27 12:27 12:54 WBC RBC Hgb Hct MCV MCH MCHC RDW Plt Count MPV Neut % (Auto) Lymph % (Auto) Mills % (Auto) Eos % (Auto) Baso % (Auto) Neut # (Auto) Lymph # (Auto) Mills # (Auto) Eos # (Auto) Baso # (Auto) Immature Gran % Nucleated RBC % Immature Gran # Nucleated RBCs # Sodium 140 Potassium 3.4 L Chloride 102 Carbon Dioxide 30 Anion Gap 11.4 BUN 24 H Creatinine 3.30 H GFR Calculation 19 BUN/Creatinine Ratio 7.00 Glucose 62 L POC Glucose 126 H Calculated Osmolality 280.4 Calcium 7.4 L Magnesium 2.2 Free T4 1.22 TSH 3rd Generation 0.636 09/08/16 09/08/16 09/09/16 15:31 19:44 03:42 WBC RBC Hgb Hct MCV MCH MCHC RDW Plt Count MPV Neut % (Auto) Lymph % (Auto) Mills % (Auto) Eos % (Auto) Baso % (Auto) Neut # (Auto) Lymph # (Auto) Mills # (Auto) Eos # (Auto) Baso # (Auto) Immature Gran % Nucleated RBC % Immature Gran # Nucleated RBCs # Sodium 140 Potassium 4.4 Chloride 105 Carbon Dioxide 28 Anion Gap 11.4 BUN 20 H Creatinine 3.00 H GFR Calculation 22 BUN/Creatinine Ratio 6.00 Glucose 99 POC Glucose 148 H 279 H Calculated Osmolality 281.4 Calcium 8.2 L Magnesium 2.5 H Free T4 TSH 3rd Generation 09/09/16 09/09/16 09/09/16 03:42 07:22 11:47 WBC 5.4 RBC 2.92 L D Hgb 8.3 L D Hct 28.0 L MCV 95.9 MCH 28 MCHC 29.6 L RDW 16.0 Plt Count 125 L MPV 11.0 Neut % (Auto) 64.5 Lymph % (Auto) 20.8 L Mills % (Auto) 10.2 Eos % (Auto) 3.7 Baso % (Auto) 0.6 Neut # (Auto) 3.5 Lymph # (Auto) 1.1 L [place] # (Auto) 0.6 Eos # (Auto) 0.2 Baso # (Auto) 0.0 Immature Gran % 0.2 Nucleated RBC % 0.0 Immature Gran # 0.01 Nucleated RBCs # 0.00 Sodium Potassium Chloride Carbon Dioxide Anion Gap BUN Creatinine GFR Calculation BUN/Creatinine Ratio Glucose POC Glucose 122 H 99 Calculated Osmolality Calcium Magnesium Free T4 TSH 3rd Generation - EKG EKG results: interpreted by me EKG shows: bradycardia, sinus rhythm Specialty Discharge - Follow Up or Referrals <Aravind Ralph - Last Filed: 09/09/16 17:46> Cardiology - PN: Subj Interval history: Patient personally interviewed and examined and chart reviewed. I discussed the case with Stacia Cancino NP. I agree with the assessment and plan. In summation in addition the patient is doing well from a cardiac standpoint this time. We will continue to monitor her heart rates withholding some of her medications. Her blood pressure is stable. I discussed our plans with the patient. We will continue to monitor her with the other services. Exam (Progress Note) - Constitutional Vitals: Period Temp Pulse Resp BP Sys/Willams Pulse Ox Last 24 Hr 97.6 F-99.2 F 40-59 16-18 109-148/47-68 92-100 Result/EKG - Labs CBC & BMP: 09/09/16 03:42 09/09/16 03:42 Labs: Laboratory Results - last 24 hr 09/08/16 09/09/16 09/09/16 19:44 03:42 03:42 WBC 5.4 RBC 2.92 L D Hgb 8.3 L D Hct 28.0 L MCV 95.9 MCH 28 MCHC 29.6 L RDW 16.0 Plt Count 125 L MPV 11.0 Neut % (Auto) 64.5 Lymph % (Auto) 20.8 L Mills % (Auto) 10.2 Eos % (Auto) 3.7 Baso % (Auto) 0.6 Neut # (Auto) 3.5 Lymph # (Auto) 1.1 L [place] # (Auto) 0.6 Eos # (Auto) 0.2 Baso # (Auto) 0.0 Immature Gran % 0.2 Nucleated RBC % 0.0 Immature Gran # 0.01 Nucleated RBCs # 0.00 Sodium 140 Potassium 4.4 Chloride 105 Carbon Dioxide 28 Anion Gap 11.4 BUN 20 H Creatinine 3.00 H GFR Calculation 22 BUN/Creatinine Ratio 6.00 Glucose 99 POC Glucose 279 H Calculated Osmolality 281.4 Calcium 8.2 L Magnesium 2.5 H 09/09/16 09/09/16 09/09/16 07:22 11:47 15:38 WBC RBC Hgb Hct MCV MCH MCHC RDW Plt Count MPV Neut % (Auto) Lymph % (Auto) [place] % (Auto) Eos % (Auto) Baso % (Auto) Neut # (Auto) Lymph # (Auto) [place] # (Auto) Eos # (Auto) Baso # (Auto) Immature Gran % Nucleated RBC % Immature Gran # Nucleated RBCs # Sodium Potassium Chloride Carbon Dioxide Anion Gap BUN Creatinine GFR Calculation BUN/Creatinine Ratio Glucose POC Glucose 122 H 99 167 H Calculated Osmolality Calcium Magnesium
--- NOTE | 2016-09-09 13:07 | Nephrology Progress Note ---
Nephrology - PN: Subj Interval history: She has just returned from nuclear medicine. She complains of low back pain while being moved. No shortness of breath or GI symptoms Exam (PN)-Nephrology - Vital Signs Vital signs: Period Temp Pulse Resp BP Sys/Willams Pulse Ox Last 24 Hr 97.3 F-99.2 F 40-59 16-18 109-139/47-76 92-100 Exam: ENT: Normal Cardiovascular: Regular rate and rhythm. No murmur rub or gallop Lungs: Clear Extremities: Trace edema - Lab 09/09/16 03:42 09/09/16 03:42 Most recent lab results Calcium 8.2 MG/DL (8.5-10.1) L 09/09/16 03:42 Magnesium 2.5 MG/DL (1.8-2.4) H 09/09/16 03:42 Assessment and Plan (1) ESRD (end stage renal disease) on dialysis Status: Chronic Assessment and plan: 66-year-old woman admitted with: * Compression fracture L3. Nuclear medicine scan just done * ESRD. Dialysis TTS * Diabetes mellitus * Hypertension * CAD * Peripheral vascular disease * Colon cancer. Transfused yesterday for anemia * Recent right CEA Current Visit: Yes (2) Colon cancer Status: Acute Current Visit: Yes Qualifiers: Colon location: ascending Qualified Code(s): C18.2 - Malignant neoplasm of ascending colon (3) Compression fracture of L3 lumbar vertebra Status: Acute Current Visit: Yes (4) Essential (primary) hypertension Status: Chronic Current Visit: Yes (5) CAD (coronary artery disease) Status: Chronic Current Visit: No Qualifiers: Coronary Disease-Associated Artery/Lesion type: [place] artery [place] vs. transplanted heart: [place] heart Associated angina: without angina Qualified Code(s): I25.10 - Atherosclerotic heart disease of [place] coronary artery without angina pectoris (6) Diabetes mellitus Status: Chronic Current Visit: No Qualifiers: Diabetes mellitus type: type 2 Diabetes mellitus complication detail: with chronic kidney disease Diabetes mellitus mcc insulin use: with mcc use Chronic kidney disease stage: on chronic dialysis (7) PVD (peripheral vascular disease) Status: Chronic Current Visit: No Specialty Discharge - Follow Up or Referrals
--- NOTE | 2016-09-09 15:51 | Hospitalist Progress Note ---
Assessment and Plan (1) Hypotension Status: Acute Assessment and plan: 1)hypotension and braadyacardia- due to meds- metoprolol held, amio continued. norco prn for pain. 2)colon cancer with ABLA- transfused 2 units, plan for resection when off plavix (on for post op CEA) 3)ESRD 4)recent CEA 5)diabetic foot ulcer 6)pain control for compression fracture- norco prn, escalate to percocet prn if needed. fentanyl is the one most likely to cause bradycardia. consider kyphoplasty when she can stop plavix. Current Visit: Yes (2) Bradycardia Status: Acute Current Visit: Yes (3) PVD (peripheral vascular disease) Status: Chronic Current Visit: No (4) ESRD on hemodialysis Status: Chronic Current Visit: No (5) Acute blood loss anemia Status: Acute Current Visit: No (6) Colon cancer Status: Acute Current Visit: Yes Qualifiers: Colon location: ascending Qualified Code(s): C18.2 - Malignant neoplasm of ascending colon (7) Status post carotid endarterectomy Status: Chronic Current Visit: No (8) Diabetic foot ulcer Status: Chronic Current Visit: No (9) Compression fracture of L3 lumbar vertebra Status: Acute Current Visit: Yes (10) Intractable back pain Status: Acute Current Visit: Yes Hospitalist: Subjective Interval history: Mrs Fuchs is feeling much better than she was when I met her yesterday morning. When she was transfused and dialysed, her Bp came up and her heart rate did too. I think the bradycardia was a combination of pain meds on top of betablocker. Her back pain is ok when she lies still. I discussed discharge with her and she wants to go to [facility]- she will not be able to take care of herself at home with the amount of pain she is in. Colon cancer surgery will be in a few more weeks and perhaps she could have kyphoplasty at that time once plavix stopped if she is still having severe pain. H&H up appropriately after transfusion. Dr Rivera has discontinued the wound vac because her foot wound has healed. Exam - Constitutional Vitals: Period Temp Pulse Resp BP Sys/Willams Pulse Ox Last 24 Hr 97.3 F-99.2 F 40-59 16-18 109-139/47-76 92-100 General appearance: no acute distress, over weight - Head Head exam: Present: normocephalic, atraumatic - Eye Eye exam: Present: EOMI. Absent: scleral icterus - Neck Neck exam: Present: other (CEA incision healing well.) - Respiratory Respiratory exam: Present: clear to auscultation bilaterally - Cardiovascular Cardiovascular exam: Present: regular rate and rhythm - GI/Abdominal GI/Abdominal exam: Present: normal bowel sounds, soft. Absent: tenderness - Extremities Exam Extremities exam: Present: edema - Neurological Exam Neurological exam: Present: alert, oriented X3 - Skin Skin exam: Present: warm, dry Results - Labs CBC & BMP: 09/09/16 03:42 09/09/16 03:42 Lab Results: I have reviewed the past 24 hour labs Specialty Discharge - Follow Up or Referrals
[2016-09-09] MEDS: ATORVASTATIN 20 MG TABLET PO SCH (20:28)
[2016-09-09] MEDS: GABAPENTIN 300 MG CAPSULE PO SCH (20:28)
[2016-09-10 04:22] LABS: Basophils % 0.4 % (0.0-0.8); Eosinophils # 0.2 10*3/uL (0.0-0.87); Eosinophils % 2.9 % (0.00-10.9); Hematocrit 29.6 VOL% (35.7-47.0); Hemoglobin 8.6 GM/DL (12.0-16.0); Immature Granulocytes % 0.3 %; Immature Granulocytes Absolute 0.02 #; Lymphocytes # 0.9 10*3/uL (1.4-4.0); Lymphocytes % 12.7 % (21.3-54.2); Mean Corpuscular HGB Conc 29.1 GM/DL (32-36); Mean Corpuscular Hemoglobin 28 PG (27-34); Mean Corpuscular Volume 96.7 FL (87-102); Mean Platelet Volume 10.9 FL (9.6-12.0); Monocytes # 0.6 10*3/uL (0.11-0.8); Monocytes % 8.3 % (1.7-12.7); Neutrophils # 5.2 10*3/uL (1.4-7.4); Neutrophils % 75.4 % (38.7-73.9); Platelet Count 145 T/CUMM (130-400); Red Blood Count 3.06 MC/CUMM (3.8-5.5); White Blood Count 6.9 T/CUMM (4-12)
[2016-09-10 04:45] LABS: Osmolality,Calculated 291.5 MOS/KG (273-304); Potassium 4.6 MMOL/L (3.5-5.1)
[2016-09-10] MEDS: INSULIN LISPRO 100 UNIT/ML SUBCUT SCH ×4 (08:48→22:10)
[2016-09-10] MEDS: BENZOIN TOP SCH (09:00)
[2016-09-10] MEDS: SODIUM HYPOCHLORITE 0.25% IRRIG 473 ML BOTTLE TOP SCH (09:00)
[2016-09-10] MEDS ORDERED: HEPARIN 10,000 UNIT/10 ML VIAL IV ONE (11:00)
--- NOTE | 2016-09-10 11:49 | General Surgery Progress Note ---
Assessment and Plan (1) Colon cancer Status: Acute Assessment and plan: This patient is awaiting resection of her colon cancer until after her stopped. Her neck incision is clean and is healing well. She is having no rectal bleeding. Dr. Bhavin Rivera will be back on Monday. No acute surgical changes are planned. Current Visit: Yes Qualifiers: Colon location: ascending Qualified Code(s): C18.2 - Malignant neoplasm of ascending colon Subjective Patient reports: Present: no new complaints, flatus, bowel movement, afebrile. Absent: blood in stool Exam - Constitutional Vitals: Period Temp Pulse Resp BP Sys/Willams Pulse Ox Last 24 Hr 97.4 F-99.1 F 56-62 16-18 126-152/35-71 94-96 General appearance: no acute distress, over weight - Head Head exam: Present: normal inspection, normocephalic - Eye Eye exam: Present: EOMI Pupils: Present: MART - ENT ENT exam: Present: normal exam Mouth exam: Present: normal external inspection, normal voice - Neck Neck exam: Present: normal inspection, trachea midline, other (The neck incision is healing well. There is no infection.) - Respiratory Respiratory exam: Present: clear to auscultation bilaterally. Absent: accessory muscle use, chest wall tenderness - Cardiovascular Cardiovascular exam: Present: RRR. Absent: systolic murmur, tachycardia - GI/Abdominal GI/Abdominal exam: Present: soft. Absent: tenderness, rebound - Extremities Exam Extremities exam: Present: normal inspection, normal capillary refill - Back Exam Back exam: Present: normal inspection - Neurological Exam Neurological exam: Present: alert, oriented X3 Speech: Present: normal - Skin Skin exam: Present: normal color, warm Results - Labs CBC & BMP: 09/10/16 02:51 09/10/16 02:51 Specialty Discharge - Follow Up or Referrals
[2016-09-10] MEDS: SKIN HEALING OINT (AQUAPHOR) 50 GM TUBE TOP SCH (12:00)
--- NOTE | 2016-09-10 12:51 | Dialysis Note ---
Dialysis Note - Dialysis Note Patient seen on dialysis tolerated the procedure. Blood pressure 126/35.
[2016-09-10] MEDS: CHOLECALCIFEROL 1,000 UNIT TABLET PO SCH (13:01)
[2016-09-10] MEDS: CLOPIDOGREL 75 MG TABLET PO SCH (13:01)
[2016-09-10] MEDS: ASPIRIN EC 81 MG TABLET PO SCH (13:01)
[2016-09-10] MEDS: PANTOPRAZOLE 40 MG TABLET PO SCH (13:02)
[2016-09-10] MEDS: AMIODARONE 200 MG TABLET PO SCH (13:02)
[2016-09-10] MEDS: SUCRALFATE 1 GM TABLET PO SCH ×2 (13:02→22:10)
--- NOTE | 2016-09-10 14:22 | Hospitalist Progress Note ---
Assessment and Plan (1) Colon cancer Status: Acute Assessment and plan: Impression: 1. Colon cancer, awaiting resection 2. Recent stroke, status post endarterectomy 3. End-stage renal disease 4. Chronic pain 5. Deconditioning Plan: We will continue current care over the weekend. She should be ready to go to the swing bed facility the first part of next week. This note was completed using [employer] voice recognition software. There may be atmospheric chemist errors as a result. Current Visit: Yes Qualifiers: Colon location: ascending Qualified Code(s): C18.2 - Malignant neoplasm of ascending colon Hospitalist: Subjective Interval history: Follow-up recent cerebral infarction, colon cancer, end-stage renal disease. The patient tells me that she is going to be transferred to a swing bed early next week. She is still in need of some physical therapy prior to undergoing colon resection. She appears to have made a significant recovery from the cerebral infarction a couple of weeks ago. She has not had any further bleeding. She underwent dialysis today. She tells me that Dr. Kyra Fitzpatrick is her primary care physician, and that Dr. Cassidy admits her to the hospital, since Dr. Fitzpatrick no longer comes to the hospital. Exam - Constitutional Vitals: Period Temp Pulse Resp BP Sys/Willams Pulse Ox Last 24 Hr 97.4 F-98.6 F 56-62 16-18 126-152/35-71 94-96 The patient is afebrile. Heart is regular with no murmur. Chest is fairly clear with no rales or wheezes. She is able to move all 4 extremities. Results - Labs CBC & BMP: 09/10/16 02:51 09/10/16 02:51 Lab Results: I have reviewed the past 24 hour labs Specialty Discharge - Follow Up or Referrals
--- NOTE | 2016-09-10 14:33 | Cardiology Progress Note ---
Assessment and Plan (1) CAD (coronary artery disease) Status: Chronic Assessment and plan: Previous coronary bypass surgery she is stable from this. Current Visit: No Qualifiers: Coronary Disease-Associated Artery/Lesion type: [place] artery [place] vs. transplanted heart: [place] heart Associated angina: without angina Qualified Code(s): I25.10 - Atherosclerotic heart disease of [place] coronary artery without angina pectoris (2) Bradycardia Status: Acute Assessment and plan: This is resolved off metoprolol. Current Visit: Yes (3) PVD (peripheral vascular disease) Status: Chronic Assessment and plan: Isn't affected her lower extremities and has had some toe amputations. Current Visit: No (4) ESRD on hemodialysis Status: Chronic Assessment and plan: Dialysis today. Current Visit: No (5) Colon cancer Status: Acute Assessment and plan: This is being evaluated. Current Visit: Yes Qualifiers: Colon location: ascending Qualified Code(s): C18.2 - Malignant neoplasm of ascending colon (6) Status post carotid endarterectomy Status: Chronic Assessment and plan: This is just recent. Current Visit: No (7) Compression fracture of L3 lumbar vertebra Status: Acute Assessment and plan: This is been causing a lot of pain for the patient at this as well as more stable now. Current Visit: Yes Cardiology - PN: Subj Interval history: Patient done well from cardiac standpoint. Her heart rates are normal and has been off the metoprolol now for 2 days. Her heart rates are not fast any been stable. She is doing well with dialysis. She's had no other cardiac symptomatology. Our standpoint she is stable and can go home and her other issues are managed him optimized.. Exam (Progress Note) - Constitutional Vitals: Period Temp Pulse Resp BP Sys/Willams Pulse Ox Last 24 Hr 97.4 F-98.6 F 56-62 16-18 126-152/35-71 94-96 Exam: General: Overweight female who was sleeping on my arrival. She is in no distress when awakened. HEENT: PERRL, normocephalic, atraumatic. Mucous membranes moist. No jaundice noted. Conjunctiva moist and clear, sclerae anicteric Neck: No JVD/HJR, no thyromegaly or lymphadenopathy noted. Findings of recent right carotid endarterectomy, trachea is in midline Cardiac: Regular rate and rhythm. No murmur rub or gallop. Lungs: Clear to auscultation anteriorly. Abdomen: Soft, bowel sounds normoactive. Nontender and nondistended. Musculoskeletal: No fluid collection. Decreased range of motion is noted. Extremities: No clubbing, cyanosis noted. No edema noted. Upper extremity pulses 2+. Lower extremity pulses 2+. Skin: No unusual lesions or rashes. No skin breakdown appreciated. Neuro: Awake, alert and oriented 3. Moves all extremities well without hemiparesis or paralysis. No essential tremor is appreciated Result/EKG - Labs CBC & BMP: 09/10/16 02:51 09/10/16 02:51 Lab Results: I have reviewed the past 24 hour labs Labs: Laboratory Results - last 24 hr 09/09/16 09/09/16 09/10/16 15:38 19:58 02:51 WBC 6.9 RBC 3.06 L Hgb 8.6 L Hct 29.6 L MCV 96.7 MCH 28 MCHC 29.1 L RDW 16.0 Plt Count 145 MPV 10.9 Neut % (Auto) 75.4 H Lymph % (Auto) 12.7 L [place] % (Auto) 8.3 Eos % (Auto) 2.9 Baso % (Auto) 0.4 Neut # (Auto) 5.2 Lymph # (Auto) 0.9 L [place] # (Auto) 0.6 Eos # (Auto) 0.2 Baso # (Auto) 0.0 Immature Gran % 0.3 Nucleated RBC % 0.0 Immature Gran # 0.02 Nucleated RBCs # 0.00 Sodium Potassium Chloride Carbon Dioxide Anion Gap BUN Creatinine GFR Calculation BUN/Creatinine Ratio Glucose POC Glucose 167 H 167 H Calculated Osmolality Calcium 09/10/16 02:51 WBC RBC Hgb Hct MCV MCH MCHC RDW Plt Count MPV Neut % (Auto) Lymph % (Auto) [place] % (Auto) Eos % (Auto) Baso % (Auto) Neut # (Auto) Lymph # (Auto) [place] # (Auto) Eos # (Auto) Baso # (Auto) Immature Gran % Nucleated RBC % Immature Gran # Nucleated RBCs # Sodium 139 Potassium 4.6 Chloride 103 Carbon Dioxide 27 Anion Gap 13.6 BUN 33 H D Creatinine 4.30 H GFR Calculation 14 BUN/Creatinine Ratio 7.00 Glucose 239 H POC Glucose Calculated Osmolality 291.5 Calcium 8.0 L - Impressions Impressions: Telemetry with normal sinus rhythm and rate. Specialty Discharge - Follow Up or Referrals
[2016-09-10] MEDS: INSULIN ASPART PROTAMINE/ASPART 70/30 100 UNIT/ML SUBCUT SCH (17:38)
[2016-09-10] MEDS: ATORVASTATIN 20 MG TABLET PO SCH (22:10)
[2016-09-10] MEDS: GABAPENTIN 300 MG CAPSULE PO SCH (22:10)
[2016-09-11] MEDS: INSULIN LISPRO 100 UNIT/ML SUBCUT SCH ×4 (08:50→20:55)
[2016-09-11] MEDS: PANTOPRAZOLE 40 MG TABLET PO SCH (08:51)
[2016-09-11] MEDS: CHOLECALCIFEROL 1,000 UNIT TABLET PO SCH (08:52)
[2016-09-11] MEDS: ASPIRIN EC 81 MG TABLET PO SCH (08:52)
[2016-09-11] MEDS: SUCRALFATE 1 GM TABLET PO SCH ×2 (08:52→20:52)
[2016-09-11] MEDS: AMIODARONE 200 MG TABLET PO SCH (08:52)
[2016-09-11] MEDS: CLOPIDOGREL 75 MG TABLET PO SCH (08:52)
[2016-09-11] MEDS: INSULIN ASPART PROTAMINE/ASPART 70/30 100 UNIT/ML SUBCUT SCH (08:52)
--- NOTE | 2016-09-11 09:01 | Hospitalist Progress Note ---
Assessment and Plan (1) Colon cancer Status: Acute Assessment and plan: Impression: 1. Colon cancer, awaiting resection 2. Recent stroke, status post endarterectomy 3. End-stage renal disease 4. Chronic pain 5. Deconditioning Plan: Continue to work in physical therapy, and progress as tolerated. Anticipate transfer to swing bed in the next 24-48 hours. This note was completed using [employer] voice recognition software. There may be pipe joints supervisor errors as a result. Current Visit: Yes Qualifiers: Colon location: ascending Qualified Code(s): C18.2 - Malignant neoplasm of ascending colon Hospitalist: Subjective Interval history: Follow-up recent cerebral infarction with carotid endarterectomy, colon cancer, deconditioning, and end-stage renal disease. The patient says that she is improving. She had all her breakfast. She was able to stand up yesterday. She denies any pain or GI bleeding. She is anxiously awaiting the decision regarding swing bed placement tomorrow. The plan will be for her to go to swing bed, and then return for colon cancer resection once her level of conditioning has improved. Exam - Constitutional Vitals: Period Temp Pulse Resp BP Sys/Willams Pulse Ox Last 24 Hr 97.8 F-99.0 F 60-71 16-20 114-127/47-61 90-95 She is afebrile. Vital signs are normal. Heart is regular with no murmur or gallop. Lungs are clear with no rales or wheezes. Abdomen is soft without any mass or tenderness. Results - Labs CBC & BMP: 09/10/16 02:51 09/10/16 02:51 Specialty Discharge - Follow Up or Referrals
--- NOTE | 2016-09-11 09:16 | Nephrology Progress Note ---
Nephrology - PN: Subj Interval history: The patient is resting comfortably no acute changes. Tolerated dialysis on yesterday. Hemodynamics are better. Exam (PN)-Nephrology - Vital Signs Vital signs: Period Temp Pulse Resp BP Sys/Willams Pulse Ox Last 24 Hr 97.8 F-99.0 F 60-71 16-20 114-145/47-79 90-96 - General Appearance General appearance: well-developed, well-nourished EENT: ATNC Neck: supple Respiratory: clear Cardiology: regular rate, regular rhythm Gastrointestinal: normoactive bowel sounds Neurologic: alert and oriented x3, CN 3-12 intact Psychiatric: mood/affect appropriate - Lab 09/10/16 02:51 09/10/16 02:51 Most recent lab results Calcium 8.0 MG/DL (8.5-10.1) L 09/10/16 02:51 Magnesium 2.5 MG/DL (1.8-2.4) H 09/09/16 03:42 Assessment and Plan (1) Diabetes mellitus Status: Chronic Current Visit: No Qualifiers: Diabetes mellitus type: type 2 Diabetes mellitus complication detail: with chronic kidney disease Diabetes mellitus [facility] insulin use: with terminal supervisor use Chronic kidney disease stage: on chronic dialysis (2) Essential hypertension Status: Chronic Current Visit: No (3) Hypertension Status: Chronic Current Visit: No Qualifiers: Hypertension type: essential hypertension Qualified Code(s): I10 - Essential (primary) hypertension (4) ESRD on hemodialysis Status: Chronic Assessment and plan: Continue with scheduled hemodialysis. Current Visit: No Specialty Discharge - Follow Up or Referrals
[2016-09-11] MEDS: BENZOIN TOP SCH (13:02)
[2016-09-11] MEDS: SKIN HEALING OINT (AQUAPHOR) 50 GM TUBE TOP SCH (13:02)
[2016-09-11] MEDS: SODIUM HYPOCHLORITE 0.25% IRRIG 473 ML BOTTLE TOP SCH (13:02)
--- NOTE | 2016-09-11 15:30 | Cardiology Progress Note ---
Assessment and Plan (1) CAD (coronary artery disease) Status: Chronic Assessment and plan: Previous coronary bypass surgery she is stable from this. Current Visit: No Qualifiers: Coronary Disease-Associated Artery/Lesion type: [place] artery [place] vs. transplanted heart: [place] heart Associated angina: without angina Qualified Code(s): I25.10 - Atherosclerotic heart disease of [place] coronary artery without angina pectoris (2) Bradycardia Status: Acute Assessment and plan: This is resolved off metoprolol. Current Visit: Yes (3) PVD (peripheral vascular disease) Status: Chronic Assessment and plan: This is clinically stable. Current Visit: No (4) ESRD on hemodialysis Status: Chronic Assessment and plan: She'll continue dialysis on schedule. Current Visit: No (5) Colon cancer Status: Acute Assessment and plan: This is being evaluated. Current Visit: Yes Qualifiers: Colon location: ascending Qualified Code(s): C18.2 - Malignant neoplasm of ascending colon (6) Status post carotid endarterectomy Status: Chronic Assessment and plan: This is just recent. Current Visit: No (7) Compression fracture of L3 lumbar vertebra Status: Acute Assessment and plan: This is been causing a lot of pain for the patient at this as well as more stable now. Current Visit: Yes Cardiology - PN: Subj Interval history: Patient is doing generally well. She's been sitting up. Her back pain is much better. Her rhythm remained sinus. Her vital signs blood pressure stable. She 's had no further bradycardia with her present medical regimen. Her blood pressure up and down some. Hopefully should be going to a swing bed or rehabilitation center. Exam (Progress Note) - Constitutional Vitals: Period Temp Pulse Resp BP Sys/Willams Pulse Ox Last 24 Hr 97.8 F-99.0 F 60-71 16-20 114-176/47-79 90-96 Exam: General: Overweight female who was sleeping on my arrival. She is in no distress when awakened. HEENT: PERRL, normocephalic, atraumatic. Mucous membranes moist. No jaundice noted. Conjunctiva moist and clear, sclerae anicteric Neck: No JVD/HJR, no thyromegaly or lymphadenopathy noted. Findings of recent right carotid endarterectomy, trachea is in midline Cardiac: Regular rate and rhythm. No murmur rub or gallop. Lungs: Clear to auscultation anteriorly. Abdomen: Soft, bowel sounds normoactive. Nontender and nondistended. Musculoskeletal: No fluid collection. Decreased range of motion is noted. Extremities: No clubbing, cyanosis noted. No edema noted. Upper extremity pulses 2+. Lower extremity pulses 2+. Skin: No unusual lesions or rashes. No skin breakdown appreciated. Neuro: Awake, alert and oriented 3. Moves all extremities well without hemiparesis or paralysis. No essential tremor is appreciated Result/EKG - Labs CBC & BMP: 09/10/16 02:51 09/10/16 02:51 Labs: Laboratory Results - last 24 hr 09/10/16 09/10/16 09/11/16 15:34 20:43 12:30 POC Glucose 229 H 151 H 202 H - Impressions Impressions: Rhythm is normal sinus rate. Specialty Discharge - Follow Up or Referrals
[2016-09-11] MEDS: GABAPENTIN 300 MG CAPSULE PO SCH (20:52)
[2016-09-11] MEDS: ATORVASTATIN 20 MG TABLET PO SCH (20:53)
[2016-09-12] MEDS: INSULIN LISPRO 100 UNIT/ML SUBCUT SCH ×3 (07:59→18:14)
[2016-09-12] MEDS: SODIUM HYPOCHLORITE 0.25% IRRIG 473 ML BOTTLE TOP SCH (08:32)
[2016-09-12] MEDS: BENZOIN TOP SCH (08:32)
[2016-09-12] MEDS: CLOPIDOGREL 75 MG TABLET PO SCH (08:33)
[2016-09-12] MEDS: CHOLECALCIFEROL 1,000 UNIT TABLET PO SCH (08:33)
[2016-09-12] MEDS: EPOETIN ALFA 10,000 UNIT/1 ML VIAL SUBCUT SCH (08:33)
[2016-09-12] MEDS: ASPIRIN EC 81 MG TABLET PO SCH (08:33)
[2016-09-12] MEDS: PANTOPRAZOLE 40 MG TABLET PO SCH (08:33)
[2016-09-12] MEDS: SUCRALFATE 1 GM TABLET PO SCH (08:34)
[2016-09-12] MEDS: INSULIN ASPART PROTAMINE/ASPART 70/30 100 UNIT/ML SUBCUT SCH (08:34)
[2016-09-12] MEDS: AMIODARONE 200 MG TABLET PO SCH (08:34)
[2016-09-12] MEDS: SKIN HEALING OINT (AQUAPHOR) 50 GM TUBE TOP SCH (09:45)
--- NOTE | 2016-09-12 11:23 | Nephrology Progress Note ---
Nephrology - PN: Subj Interval history: Back pain is improving. She was able to sit up in a chair yesterday. No shortness of breath. Exam (PN)-Nephrology - Vital Signs Vital signs: Period Temp Pulse Resp BP Sys/Willams Pulse Ox Last 24 Hr 97.1 F-98.6 F 63-70 18-22 137-176/60-78 90-97 Exam: ENT: Normal Cardiovascular: Regular rate and rhythm. No murmur rub or gallop Lungs: Clear Extremities: No edema - Lab 09/10/16 02:51 09/10/16 02:51 Most recent lab results Calcium 8.0 MG/DL (8.5-10.1) L 09/10/16 02:51 Magnesium 2.5 MG/DL (1.8-2.4) H 09/09/16 03:42 Assessment and Plan (1) ESRD (end stage renal disease) on dialysis Status: Chronic Assessment and plan: 66-year-old woman admitted with: * Compression fracture L3. * ESRD. Dialysis TTS * Diabetes mellitus * Hypertension * CAD * Peripheral vascular disease * Colon cancer. Transfused for anemia * Recent right CEA Current Visit: Yes (2) Colon cancer Status: Acute Current Visit: Yes Qualifiers: Colon location: ascending Qualified Code(s): C18.2 - Malignant neoplasm of ascending colon (3) Compression fracture of L3 lumbar vertebra Status: Acute Current Visit: Yes (4) Essential (primary) hypertension Status: Chronic Current Visit: Yes (5) CAD (coronary artery disease) Status: Chronic Current Visit: No Qualifiers: Coronary Disease-Associated Artery/Lesion type: [place] artery [place] vs. transplanted heart: [place] heart Associated angina: without angina Qualified Code(s): I25.10 - Atherosclerotic heart disease of [place] coronary artery without angina pectoris (6) Diabetes mellitus Status: Chronic Current Visit: No Qualifiers: Diabetes mellitus type: type 2 Diabetes mellitus complication detail: with chronic kidney disease Diabetes mellitus [employer] insulin use: with buttermaker continuous churn use Chronic kidney disease stage: on chronic dialysis (7) PVD (peripheral vascular disease) Status: Chronic Current Visit: No Specialty Discharge - Follow Up or Referrals
[2016-09-12] MEDS ORDERED: oxyCODONE/ACETAMINOPHEN 5-325 MG TABLET PO PRN (11:48)
--- NOTE | 2016-09-12 12:15 | Hospitalist Progress Note ---
<John Monteiro - Last Filed: 09/12/16 11:59> Assessment and Plan - Time spent with patient Time spent with patient: Less than 30 minutes (1) Colon cancer Status: Acute Assessment and plan: Awaiting resection. D/C'd Plavix today in anticipation. Current Visit: Yes Qualifiers: Colon location: ascending Qualified Code(s): C18.2 - Malignant neoplasm of ascending colon (2) Compression fracture of L3 lumbar vertebra Status: Acute Assessment and plan: Followed by Dr. Muhammad. Current Visit: Yes (3) CKD stage 4 secondary to hypertension Status: Acute Assessment and plan: Followed by nephrology. Dialyses Monday, , Monday. Current Visit: Yes (4) Amputated great toe of left foot Status: Chronic Assessment and plan: Dressing intact. Consult wound care for drainage. Current Visit: No (5) Status post carotid endarterectomy Status: Chronic Current Visit: No Hospitalist: Subjective Interval history: The patient was seen and examined in her bed this morning. She was lying in bed , awake and in NAD. She says she is feeling better and improving. She apparently suffered a fall and fractured her lumbar spine recently. She does not complain of any back pain and has not been seen by PT yet. She is being followed by Dr. Muhammad for her back pain and is preparing for surgical repair. We will plan to discontinue her Plavix for 7 days prior to colon cancer resection and look for swingbed/rehab placement. Exam - Constitutional Vitals: Period Temp Pulse Resp BP Sys/Willams Pulse Ox Last 24 Hr 97.1 F-98.6 F 63-70 18-22 137-176/50-78 90-98 Exam: General appearance: obese, no acute distress - Head Head exam: Present: normocephalic, atraumatic - Eye Eye exam: Present: EOMI. Absent: conjunctival injection, nystagmus Pupils: Present: MART, normal accommodation - ENT ENT exam: Present: normal exam, normal external ear exam - Neck Neck exam: Present: normal inspection. Absent: lymphadenopathy, tenderness, thyromegaly - Respiratory Respiratory exam: Present: clear to auscultation bilaterally. Absent: rales, rhonchi, wheezes - Cardiovascular Cardiovascular exam: Present: regular rate and rhythm. Absent: carotid bruit, gallop, rubs - GI/Abdominal GI/Abdominal exam: Present: normal bowel sounds. Absent: ascites, distended, mass - Extremities Exam Extremities exam: Present: s/p left great toe amputation. Absent: edema - Back Exam Back exam: Absent: CVA tenderness (L), CVA tenderness (R) - Neurological Exam Neurological exam: Present: alert, oriented X3 - Psychiatric Psychiatric exam: Present: normal affect, normal mood - Skin Skin exam: Present: normal color, warm, dry Results - Labs CBC & BMP: 09/10/16 02:51 09/10/16 02:51 Lab Results: I have reviewed the past 24 hour labs Specialty Discharge - Follow Up or Referrals <CorinnaTamara R - Last Filed: 09/12/16 15:22> Assessment and Plan (1) Compression fracture of L3 lumbar vertebra Status: Acute Assessment and plan: Spoke with Dr. Muhammad and she will have to be off her Plavix for 7 days prior to the kyphoplasty. She will go to [facility] for rehab and then be discharged and readmitted for surgical resection. Current Visit: Yes (2) Bradycardia Status: Acute Assessment and plan: stable Current Visit: Yes (3) Colon cancer Status: Acute Assessment and plan: Spoke with Dr. Miguel SPARROW, he had planned on doing her surgery when she was approximately 1 month from her carotid endarterectomy. He will consider doing it early since she will be off the Plavix for her kyphoplasty. Current Visit: Yes Qualifiers: Colon location: ascending Qualified Code(s): C18.2 - Malignant neoplasm of ascending colon (4) ESRD (end stage renal disease) on dialysis Problem details: Routine CHD today. Orders written. Status: Chronic Assessment and plan: Continue dialysis on Monday Current Visit: Yes (5) Status post carotid endarterectomy Status: Chronic Assessment and plan: I have spoken with Dr. Delcid and he is okay leaving her off the Plavix for 7 days as long as she can remain on her aspirin. Dr. Muhammad indicated is not a problem for her to remain on her aspirin Current Visit: No Hospitalist: Subjective Interval history: Patient seen and examined. Progress note reviewed and edited. We are hoping to transfer her to [facility] for rehab and pain control for 7 days. After watch she will be discharged and readmitted by surgery. Dr. Muhammad is planning to do a kyphoplasty after which Dr. Rivera the third will do a colon resection. Exam - Constitutional Vitals: Period Temp Pulse Resp BP Sys/Willams Pulse Ox Last 24 Hr 97.1 F-98.6 F 63-70 18- 137-176/50-74 90-98 Results - Labs CBC & BMP: 09/10/16 02:51 09/10/16 02:51
--- NOTE | 2016-09-12 15:48 | Discharge Summary ---
Hospital Course - Hospital Course Hospital Course: 66-year-old -[place] female that to the emergency room with complaints of lower back pain. Apparently she had a recent fall and sustained an L3 compression fracture. Dr. Muhammad sees this patient chronically and feels that she would benefit from a kyphoplasty however she is currently on Plavix. He indicated patient would have to be off Plavix for 7 days in order to proceed with a kyphoplasty. Dr. Muhammad [place] be out of the country but will make arrangements for Dr. Bonds to do the procedure. Patient is currently on Plavix after having a recent carotid endarectomy. I have spoken with Dr. Delcid and he feels that she can be off the Plavix for the 7 days required in order to do the kyphoplasty as long as she can remain on a baby aspirin. She was scheduled to have a colon resection by Dr. Miguel SPARROW in 2 weeks. She had a colonoscopy 3 weeks ago performed by Dr. Botello who found a malignant polyp. Patient will not be able to do rehab after surgery unless her back. Patient has multiple medical problems including hypertension, diabetes and is on dialysis every Monday and Monday. Patient has diabetic foot ulcer that could not be examined due to both legs were wrapped. I spoke to Dr. Rivera the third who can proceed with surgery after the kyphoplasty. Patient will be transferred to [facility] for rehab and then transferred back with an interrupted stay for the kyphoplast and colon resection. - Time spent with patient Time with patient DS: Greater than 30 minutes (50 min) Diagnosis - Discharge Diagnosis (1) Compression fracture of L3 lumbar vertebra Status: Acute (2) Bradycardia Status: Acute (3) Colon cancer Status: Acute (4) ESRD (end stage renal disease) on dialysis Status: Chronic (5) Status post carotid endarterectomy Status: Chronic Specialty Discharge - Follow Up or Referrals Discharge Plan - Discharge Data Disposition: Disch/Xfer to [facility] Condition at Discharge: Stable Discharge Diet: diabetic diet Activity: resume usual activities as tolerated Hygiene: no restrictions Weight Bearing at Discharge: full weight bearing - Discharge Medications New Glucagon 1 mg IM PRN PRN #0 vial PRN Reason: Hypoglycemia w/o IV access Heparin Inj 2,000 unit IV .FOR DIALYSIS vial Insulin Lispro [HumaLOG] See Protocol SUBCUT ACHS unit Pantoprazole Tab [Protonix Tab] 40 mg PO DAILY tablet oxyCODONE/ACETAMINOPHEN 5-325 [Percocet 5-325] 1 tablet PO Q4H PRN #0 tablet PRN Reason: Pain Moderate (4-7) Dextrose 50% [D50] 25 gm IV PRN PRN #0 vial PRN Reason: Hypoglycemia with IV access Ondansetron Inj [Zofran Inj] 4 mg IV Q4H PRN #0 vial PRN Reason: Nausea Continue Meclizine HCl 25 mg PO DAILY PRN PRN Reason: Dizziness Insulin Aspart Prot/Asp 70/30 [NovoLOG Mix 70/30] 10 unit SUBCUT QAM Cholecalciferol [Vitamin D3] 1,000 unit PO DAILY Gabapentin 300 mg PO BEDTIME Atorvastatin [Lipitor] 20 mg PO BEDTIME tablet Benzoin Compound Tincture Spr [Benzoin Compound Tincture [place]] 1 spray TOP DAILY Skin Healing Oint (Aquaphor) [Aquaphor] 1 applic TOP DAILY Epoetin Los [Procrit] 8,000 unit SUBCUT MOWEFR Methocarbamol Tab [Robaxin Tab] 500 mg PO TID PRN PRN Reason: Muscle Spasm Amiodarone Tab [Cordarone Tab] 200 mg PO DAILY HYDROcodone/ACETAMIN 7.5-325 [[place] 7.5-325] 1 tablet PO Q4H #14 tablet Sucralfate Tab [Carafate Tab] 1 gm PO DAILY Acetaminophen Tab [Tylenol Tab] 650 mg PO Q4H PRN PRN Reason: Pain Sodium Hypochlorite 0.25% Irr [[place] 1/2 Strength 0.25% Soln] 1 applic TOP DIRECTED Pantoprazole Tab [Protonix Tab] 40 mg PO DAILY Isosorbide Mononitrate [Isosorbide Mononitrate ER] 60 mg PO DAILY Aspirin [Ecotrin] 81 mg PO DAILY #60 tablet.dr Discontinued hydrALAZINE TAB [Apresoline Tab] 100 mg PO TID #90 tablet Metoprolol Tartrate 25 mg PO QAM Clopidogrel [Plavix] 75 mg PO DAILY #60 tablet - Follow Up or Referral - Forms/Instructions Instructions: Vertebral Compression Fracture (ED) Exam - Constitutional Vitals: Period Temp Pulse Resp BP Sys/Willams Pulse Ox Last 24 Hr 97.1 F-98.6 F 63-70 18-22 137-176/50-74 90-98 Exam: See today's note Discharge Results Procedures and tests throughout hospitalization: Pending Orders 09/13/16 04:00 Comp Blood Count Auto Diff IN AM Labs on day of discharge: Labs from last 24 hours 09/12/16 09/12/16 09/11/16 11:21 07:24 20:07 POC Glucose 239 H 128 H 151 H Blood Type Antibody Screen Crossmatch 09/11/16 09/11/16 09/08/16 16:04 08:24 Unknown POC Glucose 169 H 133 H Blood Type B POSITIVE Antibody Screen Negative Crossmatch See Detail DS: Provider Date of admission: 09/08/16 03:24 Primary care physician: Kyra Fitzpatrick MD Attending physician on admission: Sabiha Valentin MD Consults: 09/08/16 10:43 Consult to Physician [CONS] Routine Comment: Consulting Provider: Cardiology - [facility] Consult to Specialist Group: Cardiology When should Consulting Provider be notified: Now Person Notified: ELLIOTT Date Notified: 09/08/16 Time Notified: 11:05 09/08/16 10:49 Consult to Physician [CONS] Routine Comment: Consulting Provider: Wes Beltrán 09/08/16 10:52 Consult to Physician [CONS] Routine Comment: recent CEA Consulting Provider: Madan Delcid Consult to Specialist Group: Surgery Person Notified: JIN Date Notified: 09/08/16 Time Notified: 11:25 09/09/16 14:54 Consult to Case Mgmt/Social Srvs [CONS] Routine Reason for Case Mgmt/Social Srvs: Swingbed/SNF/Detention 09/09/16 15:13 Consult to Case Mgmt/Social Srvs [CONS] Routine Reason for Case Mgmt/Social Srvs: Discharge Planning Consult Comment: PT, rehab 09/09/16 15:20 PT [Consult to Physical Therapy] [CONS] Routine Reason for Physical Therapy: Evaluate and Treat Consult Comment: Evaluate for rehab 09/12/16 11:41 Consult to Case Mgmt/Social Srvs [CONS] Routine Reason for Case Mgmt/Social Srvs: Rehab Consult Comment: off plavix for 7 days Discharging clinician: Tamara Weinstein MD
[2016-09-12 16:31] VITALS: BP 175/74
== END 2016-09-12 19:40 | DRG 551 ==
LOC: N.ED 01:47 → N.EDINP 03:24 → SUATTDRO 03:24 → N.TELEN 04:30
PROVIDERS: ADMIT Internal Medicine; ATTEND Internal Medicine

== ENCOUNTER 2016-11-14 08:08 | Inpatient (IN) ==
[2016-11-09 11:05] LABS: Basophils % 0.7 % (0.0-0.8); Eosinophils # 0.3 10*3/uL (0.0-0.87); Eosinophils % 4.7 % (0.00-10.9); Hematocrit 32.5 VOL% (35.7-47.0); Hemoglobin 9.9 GM/DL (12.0-16.0); Immature Granulocytes % 0.2 %; Immature Granulocytes Absolute 0.01 #; Lymphocytes # 1.1 10*3/uL (1.4-4.0); Lymphocytes % 17.8 % (21.3-54.2); Mean Corpuscular HGB Conc 30.5 GM/DL (32-36); Mean Corpuscular Hemoglobin 28 PG (27-34); Mean Corpuscular Volume 90.8 FL (87-102); Mean Platelet Volume 10.1 FL (9.6-12.0); Monocytes # 0.7 10*3/uL (0.11-0.8); Monocytes % 11.9 % (1.7-12.7); Neutrophils # 3.9 10*3/uL (1.4-7.4); Neutrophils % 64.7 % (38.7-73.9); Platelet Count 157 T/CUMM (130-400); Red Blood Count 3.58 MC/CUMM (3.8-5.5); Red Cell Distribution Width 17.3 % (9.3-17.3)
[2016-11-09 11:45] LABS: Calcium 8.5 MG/DL (8.5-10.1); Osmolality,Calculated 288.4 MOS/KG (273-304); Potassium 3.3 MMOL/L (3.5-5.1)
--- NOTE | 2016-11-09 11:47 | EKG Report ---
Stationary ECG Study [facility] Test Date: 11/09/2016 11:46:45 AM Pat Name: SIMONE NICKERSON Department: Room: Gender: F [employer] Feeder: GIORGIO WANG : 1950 Requested by: Jose Wang Order Number: [id number] Reading MD: SELENE DENIS Intervals [place] Rate: 60 P: 28 [place]: 232 QRS: -64 QRSD: 122 T: 38 QT: 395 QTc: 397 Interpretive Statements SINUS RHYTHM WITH PROLONGED [place] INTERVAL MARKED LEFT AXIS DEVIATION Electronically Signed On 11-09-16 15:07:41 CDT by SELENE DENIS [email or web address]
--- NOTE | 2016-11-09 13:20 | XRay Report ---
XR chest 2V Indication: Pulmonary preop evaluation Comparison: Chest x-ray dated September 13, 2016 Technique: Frontal and lateral views of the chest. Findings: Continued cardiomegaly status post sternotomy. There is nonspecific prominence of lung markings suspicious for interstitial pulmonary edema. Chronic/fibrotic change and interstitial pneumonia may have similar appearance. Right-sided central venous catheter tip remains about the atriocaval junction. Visualized osseous and surrounding soft tissue structures appear grossly unchanged. IMPRESSION: As above. PROCEDURE INTERPRETED AT [facility] DEPARTMENT OF RADIOLOGY Final Report Signed by: Dr Nura Hinton
[~2016-11-14 08:08] MED LIST: ALVIMOPAN 12 MG CAPSULE ONE; LACTATED RINGERS 1,000 ML IV SCH; SODIUM CHLORIDE 0.9% 100 ML IV ONE
--- NOTE | 2016-11-14 08:36 | History and Physical Update ---
History and Physical Update - History and Physical H&P was reviewed, the patient examined and there: are no changes in the patients condition since last H&P was completed.
[2016-11-14] MEDS ORDERED: FAMOTIDINE 20 MG TABLET PO ONE (08:55)
[2016-11-14] MEDS ORDERED: DIAZEPAM 5 MG TABLET PO ONE (08:55)
[2016-11-14] MEDS ORDERED: SODIUM CHLORIDE 0.9% 250 ML IV SCH (09:00)
[2016-11-14] MEDS ORDERED: FAMOTIDINE 20 MG TABLET ONE (09:03)
[2016-11-14] MEDS ORDERED: ALVIMOPAN 12 MG CAPSULE PO SCH (11:00)
[2016-11-14] MEDS ORDERED: cefOXitin 1,000 MG in SODIUM CHLORIDE 0.9% 100 ML IV SCH (11:30)
[2016-11-14] MEDS ORDERED: BUPIVACAINE MPF 0.25% /EPI 30 ML VIAL ONE (11:51)
[2016-11-14] MEDS ORDERED: LIDOCAINE 1%/EPI INJ 20 ML VIAL ONE (11:51)
[2016-11-14] MEDS ORDERED: PHENYLEPHRINE 1 MG/10 ML SYRINGE IV ONE (12:59)
[2016-11-14] MEDS ORDERED: PROPOFOL 200 MG/20 ML VIAL IV ONE (12:59)
[2016-11-14] MEDS ORDERED: LIDOCAINE 1% 5 ML VIAL ONE (12:59)
[2016-11-14] MEDS ORDERED: ROCURONIUM 100 MG/10 ML VIAL IV ONE (12:59)
[2016-11-14 13:49] LABS: Apearance,Urine CLOUDY (Clear); Bacteria,Urine Occasional /HPF (Few); Bilirubin,Urine Negative (Negative); Blood, Urine Small mg/dL (Negative); Glucose,Urine (UA) Negative (Negative); Ketones,Urine Negative (Negative); Mucus,Urine Occasional /LPF (Occasional); Nitrite,Urine Negative (Negative); Protein,Urine 100 MG/DL; RBC,Urine 8 /HPF (0-4); Squamous Epithelial Cell,Urine Occasional /HPF (0-10); Urine Color Yellow (Yellow); Urine Specific Gravity 1.017 (1.001-1.035); Urine Urobilinogen < 2.0 EU/DL (0.2-1.0); WBC,Urine 29 /HPF (0-6)
[2016-11-14] MEDS ORDERED: SUGAMMADEX 200 MG/2 ML VIAL IV ONE (15:17)
--- NOTE | 2016-11-14 15:24 | Operative Note ---
Date of procedure: 11/14/16 Pre-op diagnosis: Large polyp right colon Post-op diagnosis: same Procedure: Laparoscopic hand-assisted right hemicolectomy with stapled anastomosis (22 modifier) Findings and technique: After informed consent was obtained the patient brought the operating room and placed in supine position. After successful induction of general anesthesia which was tolerated well patient's abdomen was prepped and draped in usual sterile fashion. Local anesthesia was infiltrated the umbilicus were small vertical incision was made in the peritoneal cavity under direct entered under direct vision. The GelPort was inserted and pneumoperitoneum was established and the camera inserted and inspection of the abdomen revealed extensive adhesions in the right upper quadrant obscuring the view of the liver. An 11 mm port was placed in the upper midline and on tedious dissection carried out with a LigaSure cautery device taking down adhesions between the omentum and the anterior abdominal wall. The right colon was largely coated with omentum and fat and appeared to be doubled back on itself. The cecum was essentially in the right upper quadrant. Tedious dissection was carried out using a lateral to medial dissection incising the peritoneal reflection laterally rolling the colon medially and then had to separate the omentum off of the hepatic flexure of the colon but this was not exactly in the region that I was palpating the tumor mass. This appeared to be old chronic adhesions. I could not visualize the duodenum very well and wondered if maybe this was old ulcer disease. I had to dissect the transverse colon and mesentery off of the gallbladder to free up the transverse colon and bring it inferiorly in position for an anastomosis. The transverse colon was divided with a CHELSEY stapling device and the terminal ileum divided with a CHELSEY stapling device. The mesentery was divided between clamps and ties and I felt that I was above the course of the ureter. The entire right colon resided in the right upper quadrant. This was all really anterior to the right kidney. The specimen was removed and sent to pathology where margins were negative. There was a mass-effect within the colon mesentery and I made sure that I got good margins around this. The anastomosis was performed with a CHELSEY stapling device and a TA stapler to close the openings in the ends of the bowel which bled nicely when transected suggesting a good vascular supply. The suture line was reinforced with a couple of silk Lembert sutures and then coated with Tisseel tissue sealant. Mesenteric defect was closed with several interrupted silk suture and the bowel returned to its normal position. No bleeding was noted. The fascial defect was closed with a running #1 PDS suture and the skin closed with skin clips. She appeared to tolerate the procedure well she did receive perioperative IV antibiotics. This was a much more difficult procedure than usual because of her morbid obesity and extensive adhesions in her upper abdomen. These factors greatly added to the difficulty and complexity of the case essentially doubling the expected operative time. Anesthesia: SHERIA, local Surgeon / Physician: Jose Rivera III. Estimated blood loss: other (25 mL) Specimens: other (Right:) Condition: stable Disposition: ICU Results - Labs CBC & BMP: 11/09/16 11:00 11/14/16 11:17 Discharge Plan - Discharge Medications No Action Meclizine HCl 25 mg PO DAILY PRN PRN Reason: Dizziness Insulin Aspart Prot/Asp 70/30 [NovoLOG Mix 70/30] 10 unit SUBCUT DIRECTED PRN PRN Reason: Glucose Management Cholecalciferol [Vitamin D3] 2,000 unit PO DAILY Gabapentin 300 mg PO BID Skin Healing Oint (Aquaphor) [Aquaphor] 1 applic TOP DIRECTED Methocarbamol Tab [Robaxin Tab] 500 mg PO BID Amiodarone Tab [Cordarone Tab] 200 mg PO BID HYDROcodone/ACETAMIN 7.5-325 [[place] 7.5-325] 1 tablet PO Q4H #14 tablet Sucralfate Tab [Carafate Tab] 1 gm PO BID Acetaminophen Tab [Tylenol Tab] 650 mg PO Q4H PRN PRN Reason: Pain Insulin Lispro [HumaLOG] See Protocol SUBCUT ACHS unit Pantoprazole Tab [Protonix Tab] 40 mg PO DAILY tablet Atorvastatin [Lipitor] 10 mg PO BEDTIME Atorvastatin [Lipitor] 20 mg PO DAILY Tramadol HCl [Tramadol Tab] 50 mg PO DIRECTED PRN PRN Reason: Pain Aspirin [Ecotrin] 81 mg PO DAILY #60 tablet.dr - Follow Up or Referral - Forms/Instructions
[2016-11-14] MEDS ORDERED: ONDANSETRON 4 MG/2 ML VIAL IV PRN (15:25)
[2016-11-14] MEDS ORDERED: DESFLURANE 1 UNIT/15 MINUTE INH ONE (15:41)
[2016-11-14] MEDS ORDERED: MIDAZOLAM 2 MG/2 ML VIAL ONE (15:42)
[2016-11-14] MEDS ORDERED: SODIUM CHLORIDE 0.9% 250 ML IV ONE (15:42)
[2016-11-14 16:14] LABS: Hematocrit 33.9 VOL% (35.7-47.0); Hemoglobin 10.2 GM/DL (12.0-16.0)
[2016-11-14] MEDS: MORPHINE 2 MG/1 ML SYRINGE IV PRN ×2 (16:41→20:33)
[2016-11-14] MEDS: LACTATED RINGERS 1,000 ML IV SCH (16:42)
--- NOTE | 2016-11-14 19:14 | Family Practice History&Phys ---
Assessment and Plan (1) status post right hemicolectomy Status: Acute Assessment and plan: For possible adenocarcinoma of the colon. Patient stable post surgery Current Visit: Yes (2) CAD (coronary artery disease) Status: Chronic Assessment and plan: Stable on present medication Current Visit: No Qualifiers: Coronary Disease-Associated Artery/Lesion type: [place] artery [place] vs. transplanted heart: [place] heart Associated angina: without angina Qualified Code(s): I25.10 - Atherosclerotic heart disease of [place] coronary artery without angina pectoris (3) ESRD on hemodialysis Status: Chronic Assessment and plan: We will consult Dr. Wes Beltrán and start hemodialysis Current Visit: No (4) Hypertension Status: Chronic Assessment and plan: Poorly controlled at present. Have not been able to start her oral medications so we will treat with IV medications until able to tolerate oral meds. Patient is on multiple blood pressure medications Current Visit: No Qualifiers: Hypertension type: essential hypertension Qualified Code(s): I10 - Essential (primary) hypertension (5) Diabetes mellitus Status: Chronic Assessment and plan: Stable on present medications Current Visit: No Qualifiers: Diabetes mellitus type: type 2 Diabetes mellitus complication detail: with chronic kidney disease Diabetes mellitus terminal gauger insulin use: with terminal gauger use Chronic kidney disease stage: on chronic dialysis (6) Gastric ulcer Status: Chronic Assessment and plan: Stable at present, will start on prophylactic H2 nabeel Current Visit: No (7) History of coronary artery bypass surgery Status: Chronic Assessment and plan: Stable on present medications Current Visit: No (8) Dyslipidemia Status: Chronic Assessment and plan: Patient has been stable on present medication Current Visit: No History of Present Illness Chief complaint: status post right hemicolectomy for removal of polypoid mass History of present illness: Ms. Fuchs is a 66 year old female 66-year-old female patient of Dr. Kyra Fitzpatrick who was admitted to Dr. Princess Cassidy. I am covering for Dr. Cassidy. I was asked to see patient in consult for medical management. Patient has hypertension which apparently has been difficult to control on multiple medications. Also has a history of type 2 diabetes mellitus, renal insufficiency, peripheral vascular disease, hyperlipidemia, status post coronary bypass graft, status post femoral popliteal artery bypass graft, gastroesophageal reflux, history of peptic ulcer disease. Will follow with you and manage medical issues thank you Home Medications Medication Instructions Recorded Confirmed Type Meclizine HCl 25 mg PO DAILY PRN 01/19/16 11/14/16 History Cholecalciferol [Vitamin D3] 2,000 unit PO DAILY 03/28/16 11/14/16 History Insulin Aspart Prot/Asp 70/30 10 unit SUBCUT DIRECTED PRN 03/28/16 11/14/16 History [NovoLOG Mix 70/30] Gabapentin 300 mg PO BID 03/29/16 11/14/16 History Amiodarone Tab [Cordarone Tab] 200 mg PO BID 06/22/16 11/14/16 History Methocarbamol Tab [Robaxin Tab] 500 mg PO BID 06/22/16 11/14/16 History Skin Healing Oint (Aquaphor) 1 applic TOP DIRECTED 06/22/16 11/14/16 History [Aquaphor] HYDROcodone/ACETAMIN 7.5-325 1 tablet PO Q4H #14 tablet 07/20/16 11/09/16 Rx [[place] 7.5-325] Sucralfate Tab [Carafate Tab] 1 gm PO BID 08/08/16 11/14/16 History Acetaminophen Tab [Tylenol Tab] 650 mg PO Q4H PRN 08/19/16 11/09/16 History Aspirin [Ecotrin] 81 mg PO DAILY #60 tablet. 08/29/16 11/14/16 Rx Insulin Lispro [HumaLOG] See Protocol SUBCUT ACHS unit 09/12/16 11/09/16 Rx Pantoprazole Tab [Protonix Tab] 40 mg PO DAILY tablet 09/12/16 11/14/16 Rx Amlodipine Besylate 20 mg PO DAILY 11/14/16 11/14/16 History Atorvastatin [Lipitor] 10 mg PO BEDTIME 11/14/16 11/14/16 History Atorvastatin [Lipitor] 20 mg PO DAILY 11/14/16 11/14/16 History Tramadol HCl [Tramadol Tab] 50 mg PO DIRECTED PRN 11/14/16 11/14/16 History Allergies Allergy/AdvReac Type Severity Reaction Status Date / Time No Known Allergies Allergy Verified 11/14/16 08:26 Medical,Surgical,& Family Hx - Medical History Cardio: History of: CHF, CAD, Hypertension (medication), IA, PVD Psychological: History of: Anxiety Disorders, Depression Neurology: History of: Peripheral Neuropathy (medication), TIA (2 months ago), Vertigo No history of: Brain Aneurysm, Dementia, Seizures HEENT: History of: Eye Problem (related to diabetes), Dental Problems Endocrine: History of: Diabetes Mellitus (IDDM), Diabetes Mellitus (NIDDM), Dyslipidemia Respiratory: History of: Respiratory Problems (had flu vaccine up to date with pneun vaccine) Renal: History of: Dialysis (CHEST CATHETERS AV FISTULA), Renal Failure, Renal Problems Gastrointestinal: History of: GERD (medication), Hematochezia, Polyps, Gastrointestinal Cancer, GI Problems (HX BLOOD IN STOOL) Musculoskeletal: History of: Back/Neck Problems (Back pain), Degenerative Disk Disease No history of: Amputation Comment Only: Musculoskeletal Problems (ARTHRITIS) Hematology: History of: Anemia (chronic disease), Blood Transfusion Reaction (3 months ago) Reproductive: No history of: Abnormal Pap Smear, Breast Cancer, Reproductive Cancer Other: History of: Cancer No history of: Anesthesia Reactions - Surgical History Cardiac Surgeries: Sugical HX of: Femoral-Popliteal Bypass Graft, Cardiac Catheterization, Cardiac Surgery (Bypass), Carotid Endarterectomy (08/24/16), Vascular Access Devices (dialysis graft LEFT arm; Dialysis catheters in right subclavin) Thoracic Surgeries: Patient denies;: Organ Transplant, Lobectomy Neurologic Surgeries: Patient denies: Brain Aneurysm, Neurologic Surgery HEENT Surgeries: Surgical HX of: Carotid Endarterectomy (08/24/16), Eye Surgery ( BILATERAL cataract sugery) Patient denies: Thyroid Surgery, Tonsilectomy & Adenoidectomy Abdominal Surgeries: Surgical HX of: Colonoscopy (PER DR WATKINS IN JULY), EGD Patient denies: Abdominal Surgery, Appendectomy, Cholecystectomy, Gastric Bypass Surgery, Hernia Repair Reproductive Surgeries: Surgical HX of;: Dilation and Curettage, Gynecologic Surgery Patient denies;: Genitourinary Surgery Orthopedic Surgeries: Surgical HX of;: Spinal Surgery (Injections for pain) Patient denies;: Orthopedic Surgery - Family History Family History: Reports;: Family Cancer (MOTHER (breast)), Family Diabetes ( Mother), Family Heart Disease (sister, brother), Family Hypertension (sister, brother) Denies;: Family Anesthesia Reaction, Family Psychiatric Problems, Family Stroke - Social History Smoking Status: Never smoker Frequency of Alcohol Use: None Type of Drug Use: None Exam - Constitutional Vitals: Period Temp Pulse Resp BP Sys/Willams Pulse Ox Last 24 Hr 97.6 F-98.6 F 61-73 13-21 176-207/57-83 93-100 General appearance: mild distress - Head Head exam: Present: normal inspection - ENT ENT exam: Present: normal exam - Neck Neck exam: Present: normal inspection - Respiratory Respiratory exam: Present: clear to auscultation bilaterally - Cardiovascular Cardiovascular exam: Present: regular rate and rhythm - GI/Abdominal GI/Abdominal exam: Present: tenderness - Extremities Exam Extremities exam: Present: normal inspection - Back Exam Back exam: Present: normal inspection - Neurological Exam Neurological exam: Present: alert - Psychiatric Psychiatric exam: Present: normal affect - Skin Skin exam: Present: normal color Results - Labs CBC & BMP: 11/14/16 16:06 11/14/16 11:17
[2016-11-14] MEDS ORDERED: cloNIDine 0.1 MG TABLET PO ONE (21:00)
[2016-11-14] MEDS ORDERED: hydrALAZINE 20 MG/1 ML VIAL IM PRN (21:08)
[2016-11-14] MEDS ORDERED: hydrALAZINE 20 MG/1 ML VIAL IV PRN (21:15)
[2016-11-14 23:03] LABS: Hematocrit 32.8 VOL% (35.7-47.0); Hemoglobin 9.9 GM/DL (12.0-16.0)
[2016-11-15] MEDS: LACTATED RINGERS 1,000 ML IV SCH ×2 (03:42→22:33)
[2016-11-15 05:20] LABS: Basophils % 0.6 % (0.0-0.8); Hematocrit 32.5 VOL% (35.7-47.0); Hemoglobin 9.8 GM/DL (12.0-16.0); Immature Granulocytes % 0.4 %; Immature Granulocytes Absolute 0.03 #; Lymphocytes # 0.6 10*3/uL (1.4-4.0); Lymphocytes % 8.4 % (21.3-54.2); Mean Corpuscular HGB Conc 30.2 GM/DL (32-36); Mean Corpuscular Hemoglobin 27 PG (27-34); Mean Corpuscular Volume 90.3 FL (87-102); Mean Platelet Volume 10.7 FL (9.6-12.0); Monocytes # 0.5 10*3/uL (0.11-0.8); Monocytes % 7.5 % (1.7-12.7); Neutrophils # 5.7 10*3/uL (1.4-7.4); Neutrophils % 83.1 % (38.7-73.9); Platelet Count 186 T/CUMM (130-400); Red Cell Distribution Width 17.3 % (9.3-17.3); White Blood Count 6.8 T/CUMM (4-12)
[2016-11-15 05:57] LABS: Albumin 2.5 G/DL (3.4-5.0); Bilirubin,Total 0.8 MG/DL (0.2-1.0); Calcium 8.6 MG/DL (8.5-10.1); Osmolality,Calculated 294.3 MOS/KG (273-304); Potassium 3.7 MMOL/L (3.5-5.1); Total Protein 6.2 G/DL (6.4-8.3)
[2016-11-15] MEDS: MORPHINE 2 MG/1 ML SYRINGE IV PRN ×2 (07:00→18:11)
--- NOTE | 2016-11-15 07:16 | Event Note ---
She looks good. She has no chest pain or shortness of breath. Her vital signs are stable. Her hematocrit is stable with no signs of bleeding. She may have dialysis today. I am going to cut back her IV fluids. She should be okay to go to the floor today.
[2016-11-15] MEDS: INSULIN LISPRO 100 UNIT/ML SUBCUT SCH ×4 (07:34→22:33)
[2016-11-15 07:36] LABS: Hematocrit 32.8 VOL% (35.7-47.0)
[2016-11-15] MEDS ORDERED: SKIN HEALING OINT (AQUAPHOR) 50 GM TUBE TOP PRN (08:00)
[2016-11-15] MEDS: CHOLECALCIFEROL 1,000 UNIT TABLET PO SCH (09:37)
[2016-11-15] MEDS: amLODIPine 10 MG TABLET PO SCH (09:37)
[2016-11-15] MEDS: AMIODARONE 200 MG TABLET PO SCH ×2 (09:38→22:32)
[2016-11-15] MEDS: GABAPENTIN 300 MG CAPSULE PO SCH ×2 (09:39→22:31)
[2016-11-15] MEDS: ENOXAPARIN 30 MG/0.3 ML SYRINGE SUBCUT SCH (09:40)
--- NOTE | 2016-11-15 11:13 | Nephrology Consult Note ---
History of Present Illness Chief complaint: ESRD History of present illness: Ms. Fuchs is a 66 year old female admitted for elective right colectomy for colon cancer. She has multiple chronic medical problems including ESRD. She has had no recent problems during dialysis. She underwent right colectomy yesterday which she has tolerated well. She is extubated. Blood pressure is stable. She denies shortness of breath. She is sore from her surgery but otherwise asymptomatic. Home Medications Medication Instructions Recorded Confirmed Type Meclizine HCl 25 mg PO DAILY PRN 01/19/16 11/14/16 History Cholecalciferol [Vitamin D3] 2,000 unit PO DAILY 03/28/16 11/14/16 History Insulin Aspart Prot/Asp 70/30 10 unit SUBCUT DIRECTED PRN 03/28/16 11/14/16 History [NovoLOG Mix 70/30] Gabapentin 300 mg PO BID 03/29/16 11/14/16 History Amiodarone Tab [Cordarone Tab] 200 mg PO BID 06/22/16 11/14/16 History Methocarbamol Tab [Robaxin Tab] 500 mg PO BID 06/22/16 11/14/16 History Skin Healing Oint (Aquaphor) 1 applic TOP DIRECTED 06/22/16 11/14/16 History [Aquaphor] HYDROcodone/ACETAMIN 7.5-325 1 tablet PO Q4H #14 tablet 07/20/16 11/09/16 Rx [[place] 7.5-325] Sucralfate Tab [Carafate Tab] 1 gm PO BID 08/08/16 11/14/16 History Acetaminophen Tab [Tylenol Tab] 650 mg PO Q4H PRN 08/19/16 11/09/16 History Aspirin [Ecotrin] 81 mg PO DAILY #60 tablet. 08/29/16 11/14/16 Rx Insulin Lispro [HumaLOG] See Protocol SUBCUT ACHS unit 09/12/16 11/09/16 Rx Pantoprazole Tab [Protonix Tab] 40 mg PO DAILY tablet 09/12/16 11/14/16 Rx Amlodipine Besylate 20 mg PO DAILY 11/14/16 11/14/16 History Atorvastatin [Lipitor] 10 mg PO BEDTIME 11/14/16 11/14/16 History Atorvastatin [Lipitor] 20 mg PO DAILY 11/14/16 11/14/16 History Tramadol HCl [Tramadol Tab] 50 mg PO DIRECTED PRN 11/14/16 11/14/16 History Allergies Allergy/AdvReac Type Severity Reaction Status Date / Time No Known Allergies Allergy Verified 11/14/16 08:26 Medical,Surgical,& Family Hx - Medical History Cardio: History of: CHF, CAD, Hypertension (medication), VA, PVD Psychological: History of: Anxiety Disorders, Depression Neurology: History of: Peripheral Neuropathy (medication), TIA (2 months ago), Vertigo No history of: Brain Aneurysm, Dementia, Seizures HEENT: History of: Eye Problem (related to diabetes), Dental Problems Endocrine: History of: Diabetes Mellitus (IDDM), Diabetes Mellitus (NIDDM), Dyslipidemia Respiratory: History of: Respiratory Problems (had flu vaccine up to date with pneun vaccine) Renal: History of: Dialysis (CHEST CATHETERS AV FISTULA), Renal Failure, Renal Problems Gastrointestinal: History of: GERD (medication), Hematochezia, Polyps, Gastrointestinal Cancer, GI Problems (HX BLOOD IN STOOL) Musculoskeletal: History of: Back/Neck Problems (Back pain), Degenerative Disk Disease No history of: Amputation Comment Only: Musculoskeletal Problems (ARTHRITIS) Hematology: History of: Anemia (chronic disease), Blood Transfusion Reaction (3 months ago) Reproductive: No history of: Abnormal Pap Smear, Breast Cancer, Reproductive Cancer Other: History of: Cancer No history of: Anesthesia Reactions - Surgical History Cardiac Surgeries: Sugical HX of: Femoral-Popliteal Bypass Graft, Cardiac Catheterization, Cardiac Surgery (Bypass), Carotid Endarterectomy (08/24/16), Vascular Access Devices (dialysis graft LEFT arm; Dialysis catheters in right subclavin) Thoracic Surgeries: Patient denies;: Organ Transplant, Lobectomy Neurologic Surgeries: Patient denies: Brain Aneurysm, Neurologic Surgery HEENT Surgeries: Surgical HX of: Carotid Endarterectomy (08/24/16), Eye Surgery ( BILATERAL cataract sugery) Patient denies: Thyroid Surgery, Tonsilectomy & Adenoidectomy Abdominal Surgeries: Surgical HX of: Colonoscopy (PER DR WATKINS IN JULY), EGD Patient denies: Abdominal Surgery, Appendectomy, Cholecystectomy, Gastric Bypass Surgery, Hernia Repair Reproductive Surgeries: Surgical HX of;: Dilation and Curettage, Gynecologic Surgery Patient denies;: Genitourinary Surgery Orthopedic Surgeries: Surgical HX of;: Spinal Surgery (Injections for pain) Patient denies;: Orthopedic Surgery - Family History Family History: Reports;: Family Cancer (MOTHER (breast)), Family Diabetes ( Mother), Family Heart Disease (sister, brother), Family Hypertension (sister, brother) Denies;: Family Anesthesia Reaction, Family Psychiatric Problems, Family Stroke - Social History Smoking Status: Never smoker Frequency of Alcohol Use: None Type of Drug Use: None Review of Systems 12 point system: reviewed and no additional remarkable complaints except as stated Exam - Vital Signs Vital signs: Period Temp Pulse Resp BP Sys/Willams Pulse Ox Last 24 Hr 97.2 F-98.7 F 58-70 10-20 135-220/42-77 92-100 Exam: Gen.: Alert and oriented x3. ENT: Pupils equal round reactive to light. EOMs intact. Mucous membranes moist. Neck: Supple. No JVD or bruit. Cardiovascular: Regular rate and rhythm. No murmur rub or gallop Lungs: Clear Abdomen: Surgical dressing in place Extremities: Trace edema Results - Labs CBC & BMP: 11/15/16 07:32 11/15/16 04:47 Assessment and Plan (1) ESRD on hemodialysis Status: Chronic Assessment and plan: 66-year-old woman admitted with: * ESRD. She will be dialyzed today using no heparin. * Colon cancer. Status post right hemicolectomy yesterday * Diabetes mellitus * Hypertension * CAD * Peripheral vascular disease Current Visit: No (2) status post right hemicolectomy Status: Acute Current Visit: Yes (3) Colon cancer Status: Acute Current Visit: No Qualifiers: Colon location: ascending Qualified Code(s): C18.2 - Malignant neoplasm of ascending colon (4) Compression fracture of L3 lumbar vertebra Status: Acute Current Visit: No (5) Hypertension Problem details: BP trending low since volume removal with HD yesterday. Stopped clonidine, reduced norvasc to 5mg daily to allow enough BP for additional volume removal tomorrow with day #3/3 initiation. Status: Acute Current Visit: No (6) CAD (coronary artery disease) Status: Chronic Current Visit: No Qualifiers: Coronary Disease-Associated Artery/Lesion type: [place] artery [place] vs. transplanted heart: [place] heart Associated angina: without angina Qualified Code(s): I25.10 - Atherosclerotic heart disease of [place] coronary artery without angina pectoris (7) Diabetes Status: Chronic Current Visit: No Qualifiers: Diabetes mellitus type: type 2 Diabetes mellitus complication status: with kidney complications Diabetes mellitus complication detail: with chronic kidney disease Diabetes mellitus chcf insulin use: with chcf use Chronic kidney disease stage: stage 5, not on chronic dialysis Qualified Code( s): E11.22 - Type 2 diabetes mellitus with diabetic chronic kidney disease; N18.5 - Chronic kidney disease, stage 5; Z79.4 - terminal manager (current) use of insulin (8) History of coronary artery bypass surgery Status: Chronic Current Visit: No (9) PVD (peripheral vascular disease) Status: Chronic Current Visit: No
[2016-11-15] MEDS ORDERED: ACETAMINOPHEN 325 MG TABLET PO PRN (17:55)
[2016-11-15] MEDS: ASPIRIN EC 81 MG TABLET PO SCH (18:16)
[2016-11-15] MEDS ORDERED: amLODIPine 10 MG TABLET PO SCH (18:50)
--- NOTE | 2016-11-15 19:38 | Family Practice Progress Note ---
Family Practice - PN: Subj Interval history: Patient is much improved today. She is alert tolerating her diet. Blood pressure is under much better control. Schedule for hemodialysis today. Labs are essentially stable. No new problems identified. Lungs are clear to auscultation, heart regular rate and rhythm, abdomen is soft, extremities negative edema negative Pain. We will continue present treatment plan. Exam (Progress Note) - Constitutional Vitals: Period Temp Pulse Resp BP Sys/Willams Pulse Ox Last 24 Hr 97.2 F-99.5 F 58-70 10-20 128-216/42-91 93-97 Results - Labs CBC & BMP: 11/15/16 07:32 11/15/16 04:47 Assessment and Plan (1) status post right hemicolectomy Status: Acute Assessment and plan: For possible adenocarcinoma of the colon. Patient stable post surgery Current Visit: Yes (2) CAD (coronary artery disease) Status: Chronic Assessment and plan: Stable on present medication Current Visit: No Qualifiers: Coronary Disease-Associated Artery/Lesion type: [place] artery [place] vs. transplanted heart: [place] heart Associated angina: without angina Qualified Code(s): I25.10 - Atherosclerotic heart disease of [place] coronary artery without angina pectoris (3) ESRD on hemodialysis Status: Chronic Assessment and plan: We will consult Dr. Wes Beltrán and start hemodialysis Current Visit: No (4) Hypertension Status: Chronic Assessment and plan: Poorly controlled at present. Have not been able to start her oral medications so we will treat with IV medications until able to tolerate oral meds. Patient is on multiple blood pressure medications Current Visit: No Qualifiers: Hypertension type: essential hypertension Qualified Code(s): I10 - Essential (primary) hypertension (5) Diabetes mellitus Status: Chronic Assessment and plan: Stable on present medications Current Visit: No Qualifiers: Diabetes mellitus type: type 2 Diabetes mellitus complication detail: with chronic kidney disease Diabetes mellitus residential insulin use: with residential use Chronic kidney disease stage: on chronic dialysis (6) Gastric ulcer Status: Chronic Assessment and plan: Stable at present, will start on prophylactic H2 nabeel Current Visit: No (7) History of coronary artery bypass surgery Status: Chronic Assessment and plan: Stable on present medications Current Visit: No (8) Dyslipidemia Status: Chronic Assessment and plan: Patient has been stable on present medication Current Visit: No
[2016-11-15] MEDS ORDERED: ATORVASTATIN 10 MG TABLET PO SCH (21:00)
--- NOTE | 2016-11-15 21:59 | Dialysis Note ---
Dialysis Note - Dialysis Note Hemodynamically stable during dialysis. No heparin being used
[2016-11-16] MEDS: LACTATED RINGERS 1,000 ML IV SCH (07:40)
[2016-11-16] MEDS: INSULIN LISPRO 100 UNIT/ML SUBCUT SCH ×4 (07:40→21:20)
[2016-11-16] MEDS: CHOLECALCIFEROL 1,000 UNIT TABLET PO SCH (08:22)
[2016-11-16] MEDS: ASPIRIN EC 81 MG TABLET PO SCH (08:24)
[2016-11-16] MEDS: AMIODARONE 200 MG TABLET PO SCH ×2 (08:24→21:19)
[2016-11-16] MEDS: GABAPENTIN 300 MG CAPSULE PO SCH ×2 (08:25→21:20)
[2016-11-16] MEDS: amLODIPine 10 MG TABLET PO SCH (08:25)
[2016-11-16] MEDS: ENOXAPARIN 30 MG/0.3 ML SYRINGE SUBCUT SCH (08:28)
--- NOTE | 2016-11-16 13:51 | Event Note ---
She feels well. She is tolerating p.o. diet. We will advance her diet. She is having bowel movements. Her vital signs are stable. She is tolerating dialysis. Hopefully she will be ready for discharge in the next couple days.
[2016-11-16] MEDS: ATORVASTATIN 20 MG TABLET PO SCH ×2 (14:45→21:20)
--- NOTE | 2016-11-16 16:00 | Internal Med Progress Note ---
Assessment and Plan (1) status post right hemicolectomy Status: Acute Current Visit: Yes (2) Acute blood loss anemia Status: Acute Current Visit: Yes (3) Diabetes Status: Chronic Current Visit: Yes Qualifiers: Diabetes mellitus type: type 2 Diabetes mellitus complication status: with kidney complications Diabetes mellitus complication detail: with chronic kidney disease Diabetes mellitus assisted insulin use: with human resources clerk use Chronic kidney disease stage: on chronic dialysis Qualified Code(s): E11.22 - Type 2 diabetes mellitus with diabetic chronic kidney disease; N18.6 - End stage renal disease; Z79.4 - halfway (current) use of insulin; Z99.2 - Dependence on renal dialysis (4) ESRD (end stage renal disease) on dialysis Problem details: Routine CHD today. Orders written. Status: Chronic Current Visit: Yes Internal Medicine - PN: Subj Interval history: This is a 66 year old female patient of Dr. Kyra Fitzpatrick with history of ESRD on hemodialysis per Dr. Beltrán, HTN, DM, dyslipidemia, atherosclerotic disease to include carotids, who is here in hospital for partial colectomy per Dr. Rivera, III. Several weeks ago, she was found to have a colonic mass which was resected earlier this week. She tolerated surgery well. Post surgical ileus already has started to resolve. Exam (Progress Note) - Constitutional Vitals: Period Temp Pulse Resp BP Sys/Willams Pulse Ox Last 24 Hr 98.0 F-100.0 F 56-69 16-20 114-134/48-74 93-99 General appearance: no acute distress - Head Head exam: Present: normocephalic - Eye Eye exam: Present: EOMI - Respiratory Respiratory exam: Present: clear to auscultation bilaterally. Absent: rhonchi, wheezes - Cardiovascular Cardiovascular exam: Present: regular rate and rhythm - GI/Abdominal GI/Abdominal exam: Present: normal bowel sounds (scattered), tenderness (post surgical), soft - Extremities Exam Extremities exam: Absent: edema - Neurological Exam Neurological exam: Present: alert - Psychiatric Psychiatric exam: Present: normal mood - Skin Skin exam: Present: warm, dry Results - Labs CBC & BMP: 11/17/16 04:38 11/17/16 04:38
--- NOTE | 2016-11-16 20:41 | Nephrology Progress Note ---
Nephrology - PN: Subj Interval history: No shortness of breath. She is tolerating full liquids. Exam (PN)-Nephrology - Vital Signs Vital signs: Period Temp Pulse Resp BP Sys/Willams Pulse Ox Last 24 Hr 97.0 F-99.5 F 56-69 16-20 102-134/41-74 92-99 Exam: ENT: Normal Cardiovascular: Regular rate and rhythm. No murmur rub or gallop Lungs: Clear Extremities: Trace edema - Lab 11/15/16 07:32 11/15/16 04:47 Most recent lab results Calcium 8.6 MG/DL (8.5-10.1) 11/15/16 04:47 Assessment and Plan (1) ESRD on hemodialysis Status: Chronic Assessment and plan: 66-year-old woman admitted with: * ESRD. Dialysis TTS * Colon cancer. Status post right hemicolectomy * Diabetes mellitus * Hypertension * CAD * Peripheral vascular disease Current Visit: No (2) status post right hemicolectomy Status: Acute Current Visit: Yes (3) Colon cancer Status: Acute Current Visit: No Qualifiers: Colon location: ascending Qualified Code(s): C18.2 - Malignant neoplasm of ascending colon (4) Compression fracture of L3 lumbar vertebra Status: Acute Current Visit: No (5) Hypertension Problem details: BP trending low since volume removal with HD yesterday. Stopped clonidine, reduced norvasc to 5mg daily to allow enough BP for additional volume removal tomorrow with day #3/3 initiation. Status: Acute Current Visit: No (6) CAD (coronary artery disease) Status: Chronic Current Visit: No Qualifiers: Coronary Disease-Associated Artery/Lesion type: [place] artery [place] vs. transplanted heart: [place] heart Associated angina: without angina Qualified Code(s): I25.10 - Atherosclerotic heart disease of [place] coronary artery without angina pectoris (7) Diabetes Status: Chronic Current Visit: No Qualifiers: Diabetes mellitus type: type 2 Diabetes mellitus complication status: with kidney complications Diabetes mellitus complication detail: with chronic kidney disease Diabetes mellitus senior living insulin use: with senior living use Chronic kidney disease stage: stage 5, not on chronic dialysis Qualified Code( s): E11.22 - Type 2 diabetes mellitus with diabetic chronic kidney disease; N18.5 - Chronic kidney disease, stage 5; Z79.4 - longterm (current) use of insulin (8) History of coronary artery bypass surgery Status: Chronic Current Visit: No (9) PVD (peripheral vascular disease) Status: Chronic Current Visit: No
[2016-11-17] MEDS: LACTATED RINGERS 1,000 ML IV SCH (03:05)
[2016-11-17 05:39] LABS: Basophils % 0.3 % (0.0-0.8); Hemoglobin 10.4 GM/DL (12.0-16.0); Immature Granulocytes % 0.9 %; Immature Granulocytes Absolute 0.06 #; Lymphocytes # 0.4 10*3/uL (1.4-4.0); Lymphocytes % 5.5 % (21.3-54.2); Mean Corpuscular HGB Conc 29.7 GM/DL (32-36); Mean Corpuscular Hemoglobin 27 PG (27-34); Mean Corpuscular Volume 92.3 FL (87-102); Mean Platelet Volume 11.3 FL (9.6-12.0); Monocytes # 0.4 10*3/uL (0.11-0.8); Monocytes % 6.2 % (1.7-12.7); Neutrophils # 6.1 10*3/uL (1.4-7.4); Neutrophils % 87.1 % (38.7-73.9); Platelet Count 109 T/CUMM (130-400); Red Blood Count 3.79 MC/CUMM (3.8-5.5); Red Cell Distribution Width 17.6 % (9.3-17.3)
[2016-11-17 06:05] LABS: Calcium 8.8 MG/DL (8.5-10.1); Magnesium 2.5 MG/DL (1.8-2.4); Osmolality,Calculated 292.7 MOS/KG (273-304); Potassium 4.9 MMOL/L (3.5-5.1)
[2016-11-17] MEDS: MORPHINE 2 MG/1 ML SYRINGE IV PRN (06:20)
[2016-11-17] MEDS: amLODIPine 10 MG TABLET PO SCH (08:17)
[2016-11-17] MEDS: ASPIRIN EC 81 MG TABLET PO SCH (08:18)
[2016-11-17] MEDS: AMIODARONE 200 MG TABLET PO SCH ×2 (08:18→22:07)
[2016-11-17] MEDS: INSULIN LISPRO 100 UNIT/ML SUBCUT SCH ×4 (08:19→22:06)
[2016-11-17] MEDS: CHOLECALCIFEROL 1,000 UNIT TABLET PO SCH (08:19)
[2016-11-17] MEDS: GABAPENTIN 300 MG CAPSULE PO SCH ×2 (08:21→22:07)
[2016-11-17] MEDS: ENOXAPARIN 30 MG/0.3 ML SYRINGE SUBCUT SCH (08:31)
[2016-11-17] MEDS: ATORVASTATIN 20 MG TABLET PO SCH (09:14)
[2016-11-17] MEDS ORDERED: HEPARIN 10,000 UNIT/10 ML VIAL IV PRN (12:02)
--- NOTE | 2016-11-17 12:17 | Pathology Report from [facility] ---
[facility] [place] ACCESSION # : [id number] PATIENT NAME : Haily Fuchs ORDERING DR : PARMINDER WANG III, MD CLINICAL HX: Colon CA/mass POST-OP DX: Same SPECIMEN INFO: Colon RT GROSS DESCRIPTION: The specimen is received fresh labeled HAILY FUCHS consists of a right colon measuring 14.0 x 3.3 cm. Terminal Ileum measures 3.5 x 1.8 cm. Appendix is present measuring 5.8 x 0.7 cm. Opening the colon reveals a tumor mass measuring 3.5 x 3.5 x 0.9 cm It is situated 4.0 cm from the distal margin and 11.5 cm from proximal margin. The rest of the tumor invades the bowel wall, 4.0 cm from the mesenteric margin. Two satellite polyps are seen measuring 0.8 x 0.7 cm and 0.7 x 0.6 cm respectively. The polyps are situated 3.0 cm from the distal margin. Lymph nodes will be submitted following fixation. Section submitted: (A) distal margin, (B) proximal margin, (C) mesenteric margin, (D-F) tumor, (G) polyps and (H) appendix. Cassettes added I and J lymph nodes 11/16/2016. DIAGNOSIS FOR HAILY FUCHS: RIGHT PARTIAL ILEOCOLECTOMY (Intact, 17.5 x 3.3 cm): TYPE: Invasive adenocarcinoma, mucinous. TUMOR SITE: Ascending colon. TUMOR SIZE: 3.5 x 3.5 cm. MACROSCOPIC TUMOR PERFORATION: Absent. HISTOLOGIC GRADE: Moderately-differentiated. MICROSCOPIC TUMOR EXTENSION: Through muscularis propria. MARGINS, PROXIMAL: Uninvolved by carcinoma, distance = 11.5 cm. DISTAL: Uninvolved by carcinoma, distance = 4 cm. MESENTERIC: Uninvolved by carcinoma, distance = 4 cm. TREATMENT EFFECT: No prior treatment. LYMPH VASCULAR INVASION: Present. PERINEURAL INVASION: Absent. TUMOR DEPOSITS: Not identified. LYMPH NODES: NUMBER EXAMINED: 13. NUMBER INVOLVED: 3. ADDITIONAL FINDINGS: Two adjacent tubulovillous adenomas.AJCC PATHOLOGIC STAGE IIIB ([id number]). COLLECTED DATE: 11/15/2016 [facility] REPORT DATE: 11/17/2016 ELECTRONICALLY SIGNED BY: Nury Lemus M.D. 11/17/2016 - 8:12:53 HAMLET
--- NOTE | 2016-11-17 15:17 | Nephrology Progress Note ---
Nephrology - PN: Subj Interval history: Stable during dialysis. She has some pain at her surgical site. No shortness of breath or nausea. Exam (PN)-Nephrology - Vital Signs Vital signs: Period Temp Pulse Resp BP Sys/Willams Pulse Ox Last 24 Hr 97.0 F-98.7 F 60-78 16-20 102-120/50-74 93-98 Exam: Gen.: Alert and oriented x3. ENT: Pupils equal round reactive to light. EOMs intact. Mucous membranes moist. Neck: Supple. No JVD or bruit. Cardiovascular: Regular rate and rhythm. No murmur rub or gallop Lungs: Clear Abdomen: Soft. Mild tenderness at surgical site. Bowel sounds positive Extremities: No edema - Lab 11/17/16 04:38 11/17/16 04:38 Most recent lab results Calcium 8.8 MG/DL (8.5-10.1) 11/17/16 04:38 Magnesium 2.5 MG/DL (1.8-2.4) H 11/17/16 04:38 Assessment and Plan (1) ESRD on hemodialysis Status: Chronic Assessment and plan: 66-year-old woman admitted with: * ESRD. Stable during dialysis today * Colon cancer. Status post right hemicolectomy * Diabetes mellitus * Hypertension * CAD * Peripheral vascular disease Current Visit: No (2) status post right hemicolectomy Status: Acute Current Visit: Yes (3) Colon cancer Status: Acute Current Visit: No Qualifiers: Colon location: ascending Qualified Code(s): C18.2 - Malignant neoplasm of ascending colon (4) Compression fracture of L3 lumbar vertebra Status: Acute Current Visit: No (5) Hypertension Problem details: BP trending low since volume removal with HD yesterday. Stopped clonidine, reduced norvasc to 5mg daily to allow enough BP for additional volume removal tomorrow with day #3/3 initiation. Status: Acute Current Visit: No (6) CAD (coronary artery disease) Status: Chronic Current Visit: No Qualifiers: Coronary Disease-Associated Artery/Lesion type: [place] artery [place] vs. transplanted heart: [place] heart Associated angina: without angina Qualified Code(s): I25.10 - Atherosclerotic heart disease of [place] coronary artery without angina pectoris (7) Diabetes Status: Chronic Current Visit: No Qualifiers: Diabetes mellitus type: type 2 Diabetes mellitus complication status: with kidney complications Diabetes mellitus complication detail: with chronic kidney disease Diabetes mellitus assisted insulin use: with assisted use Chronic kidney disease stage: stage 5, not on chronic dialysis Qualified Code( s): E11.22 - Type 2 diabetes mellitus with diabetic chronic kidney disease; N18.5 - Chronic kidney disease, stage 5; Z79.4 - group home (current) use of insulin (8) History of coronary artery bypass surgery Status: Chronic Current Visit: No (9) PVD (peripheral vascular disease) Status: Chronic Current Visit: No
[2016-11-17] MEDS: LIDOCAINE 5% PATCH TRANSDERM SCH (17:35)
--- NOTE | 2016-11-17 21:15 | Internal Med Progress Note ---
Assessment and Plan (1) status post right hemicolectomy Status: Acute Current Visit: Yes (2) Diabetes Status: Chronic Current Visit: Yes Qualifiers: Diabetes mellitus type: type 2 Diabetes mellitus complication status: with kidney complications Diabetes mellitus complication detail: with chronic kidney disease Diabetes mellitus vermin exterminator insulin use: with intermediate use Chronic kidney disease stage: on chronic dialysis Qualified Code(s): E11.22 - Type 2 diabetes mellitus with diabetic chronic kidney disease; N18.6 - End stage renal disease; Z79.4 - longterm (current) use of insulin; Z99.2 - Dependence on renal dialysis (3) ESRD (end stage renal disease) on dialysis Problem details: Routine CHD today. Orders written. Status: Chronic Current Visit: Yes Internal Medicine - PN: Subj Interval history: This is a 66 year old female patient of Dr. Kyra Fitzpatrick with history of ESRD on hemodialysis per Dr. Beltrán, HTN, DM, dyslipidemia, atherosclerotic disease to include carotids, who is here in hospital for partial colectomy per Dr. Rivera, III. Several weeks ago, she was found to have a colonic mass which was resected earlier this week. Today, she is complaining of back pain. Will add lidoderm patches and Tramadol. She reports having a bad night. [place] better yesterday. She now wants to go to swing bed. Exam (Progress Note) - Constitutional Vitals: Period Temp Pulse Resp BP Sys/Willams Pulse Ox Last 24 Hr 97.0 F-98.7 F 60-78 16-20 105-130/40-74 93-99 Exam: General appearance: no acute distress - Respiratory Respiratory exam: Present: clear to auscultation bilaterally. Absent: rhonchi, wheezes - Cardiovascular Cardiovascular exam: Present: regular rate and rhythm - GI/Abdominal GI/Abdominal exam: Present: normal bowel sounds (scattered), tenderness (post surgical), soft - Extremities Exam Extremities exam: Absent: edema - Neurological Exam Neurological exam: Present: alert - Psychiatric Psychiatric exam: Present: normal mood - Skin Skin exam: Present: warm, dry Results - Labs CBC & BMP: 11/17/16 04:38 11/17/16 04:38
[2016-11-17] MEDS ORDERED: ALBUTEROL/IPRATROPIUM 3 ML NEB RESP TX PRN (22:49)
[2016-11-18] MEDS: LACTATED RINGERS 1,000 ML IV SCH (01:00)
[2016-11-18 06:37] LABS: Albumin 2.4 G/DL (3.4-5.0); Bilirubin,Total 0.8 MG/DL (0.2-1.0); Calcium 8.5 MG/DL (8.5-10.1); Osmolality,Calculated 278.8 MOS/KG (273-304); Potassium 4.1 MMOL/L (3.5-5.1); Total Protein 6.7 G/DL (6.4-8.3)
[2016-11-18 07:36] LABS: Basophils % 0.3 % (0.0-0.8); Eosinophils % 0.1 % (0.00-10.9); Hematocrit 33.7 VOL% (35.7-47.0); Hemoglobin 10.2 GM/DL (12.0-16.0); Immature Granulocytes % 0.5 %; Immature Granulocytes Absolute 0.04 #; Lymphocytes # 0.7 10*3/uL (1.4-4.0); Lymphocytes % 8.3 % (21.3-54.2); Mean Corpuscular HGB Conc 30.3 GM/DL (32-36); Mean Corpuscular Hemoglobin 27 PG (27-34); Mean Corpuscular Volume 90.1 FL (87-102); Mean Platelet Volume 11.9 FL (9.6-12.0); Monocytes # 0.4 10*3/uL (0.11-0.8); Monocytes % 4.8 % (1.7-12.7); Neutrophils # 6.8 10*3/uL (1.4-7.4); Platelet Count 110 T/CUMM (130-400); Red Blood Count 3.74 MC/CUMM (3.8-5.5); Red Cell Distribution Width 17.8 % (9.3-17.3); White Blood Count 7.9 T/CUMM (4-12)
--- NOTE | 2016-11-18 08:12 | Event Note ---
She feels well. She is tolerating a diet. She is afebrile with stable vital signs. Her abdomen is benign. Her lab work looks good and she has a normal white blood cell count. I think from my standpoint she is ready for discharge. We are looking at placement options.
[2016-11-18] MEDS: LIDOCAINE 5% PATCH TRANSDERM SCH (09:09)
[2016-11-18] MEDS: ASPIRIN EC 81 MG TABLET PO SCH (09:09)
[2016-11-18] MEDS: AMIODARONE 200 MG TABLET PO SCH (09:09)
[2016-11-18] MEDS: ATORVASTATIN 20 MG TABLET PO SCH (09:10)
[2016-11-18] MEDS: GABAPENTIN 300 MG CAPSULE PO SCH (09:10)
[2016-11-18] MEDS: INSULIN LISPRO 100 UNIT/ML SUBCUT SCH ×3 (09:10→17:43)
[2016-11-18] MEDS: traMADol 50 MG TABLET PO SCH ×2 (09:10→16:32)
[2016-11-18] MEDS: amLODIPine 10 MG TABLET PO SCH (09:10)
[2016-11-18] MEDS: CHOLECALCIFEROL 1,000 UNIT TABLET PO SCH (09:12)
[2016-11-18] MEDS: ENOXAPARIN 30 MG/0.3 ML SYRINGE SUBCUT SCH (09:12)
--- NOTE | 2016-11-18 15:11 | Discharge Summary ---
Hospital Course - Hospital Course Hospital Course: Ms. Fuchs is a 66-year-old -Mexican female with history of CAD, CVA, end-stage renal disease on hemodialysis, diabetes, hypertension, hyperlipidemia , and chronic wounds admitted by Dr. Miguel SPARROW with colon cancer discovered on a screening colonoscopy. Patient had been scheduled to do a right colectomy several months prior but was delayed due to her multiple medical problems and compression fractures requiring intervention. She was taken to the operating room on 11/14/[address] Miguel SPARROW performed a laparoscopic hand-assisted right hemicolectomy with stapled anastomosis. It was a much more difficult procedure than usual because of her morbid obesity and extensive adhesions in the upper abdomen. Patient did develop a postop ileus that has now resolved. She was also extremely groggy postop day 2 so her pain medicines were cut back and she has recovered nicely. She has been afebrile, vital signs stable, and her white count is normal. Patient is extremely debilitated from her surgery and will require some rehab. Dr. Princess Cassidy was consulted on patient for medical management for her primary care physician Dr. Kyra Fitzpatrick. Dr. Nick her die maintenance also followed her during this hospital stay. Patient was also found to have a urinary tract infection upon admission with the culture showing Suha. She has been started on some Diflucan. Patient has a healed chronic wound on her left great toe amputation site that patient requests bilateral lower extremities to be wrapped. This assists in her edema control. She follows Dr. Miguel Munroe at the wound center for this. Patient is being transferred to [facility] bed for further rehabilitation. She will need to follow-up with Dr. Miguel SPARROW in 1-[address] Kyra Fitzpatrick in 2- 4 weeks. Complete discharge instructions were given to the patient and her and son who works here at the hospital. Patient's case was coordinated with patient and family, Dr. Miguel SPARROW, consultants, wound care nurse, director of casework services, and nursing staff. Care coordination, chart review, and completed discharge paperwork all took approximately 35 minutes. - Time spent with patient Time with patient DS: Greater than 30 minutes Diagnosis - Discharge Diagnosis (1) Diabetes Status: Chronic (2) CAD (coronary artery disease) Status: Chronic (3) Essential hypertension Status: Chronic (4) History of coronary artery bypass surgery Status: Chronic (5) ESRD (end stage renal disease) on dialysis Status: Chronic (6) Colon cancer Status: Acute (7) Diabetic foot ulcer Status: Chronic (8) status post right hemicolectomy Status: Resolved Discharge Plan - Discharge Data Disposition: Swing Bed, Hos Based, [facility] Condition at Discharge: Stable Discharge Diet: diabetic diet, heart healthy Activity: as per physical therapy Hygiene: may shower Driving: not until seen by doctor Contact your physician if you experience:: fever over 101, Nausea/Vomiting - Discharge Medications New Fluconazole Tab [Diflucan Tab] 200 mg PO DAILY #5 tablet Continue Meclizine HCl 25 mg PO DAILY PRN PRN Reason: Dizziness Insulin Aspart Prot/Asp 70/30 [NovoLOG Mix 70/30] 10 unit SUBCUT DIRECTED PRN PRN Reason: Glucose Management Cholecalciferol [Vitamin D3] 2,000 unit PO DAILY Gabapentin 300 mg PO BID Skin Healing Oint (Aquaphor) [Aquaphor] 1 applic TOP DIRECTED Methocarbamol Tab [Robaxin Tab] 500 mg PO BID Amiodarone Tab [Cordarone Tab] 200 mg PO BID HYDROcodone/ACETAMIN 7.5-325 [[place] 7.5-325] 1 tablet PO Q4H #14 tablet Sucralfate Tab [Carafate Tab] 1 gm PO BID Acetaminophen Tab [Tylenol Tab] 650 mg PO Q4H PRN PRN Reason: Pain Insulin Lispro [HumaLOG] See Protocol SUBCUT ACHS unit Pantoprazole Tab [Protonix Tab] 40 mg PO DAILY tablet Atorvastatin [Lipitor] 10 mg PO BEDTIME Atorvastatin [Lipitor] 20 mg PO DAILY Tramadol HCl [Tramadol Tab] 50 mg PO DIRECTED PRN PRN Reason: Pain Aspirin [Ecotrin] 81 mg PO DAILY #60 tablet. Amlodipine Besylate 20 mg PO DAILY - Follow Up or Referral Follow Up: Jose Rivera III., MD [Physician] - 1 Week Kyra Fitzpatrick MD [Primary Care Provider] - 2 Weeks - Forms/Instructions Exam - Constitutional Vitals: Period Temp Pulse Resp BP Sys/Willams Pulse Ox Last 24 Hr 97.0 F-98.2 F 60-68 18-20 105-142/40-57 90-99 Exam: 66-year-old Afro-Mexican female, no acute distress, alert and oriented Chest clear CV regular rate and rhythm Abdomen obese, appropriately tender, incision looks good Extremities with no edema, dressings clean and dry Discharge Results Labs on day of discharge: Labs from last 24 hours 11/18/16 11/18/16 11/18/16 10:58 07:27 06:51 WBC 7.9 RBC 3.74 L Hgb 10.2 L Hct 33.7 L MCV 90.1 MCH 27 MCHC 30.3 L RDW 17.8 H Plt Count 110 L MPV 11.9 Neut % (Auto) 86.0 H Lymph % (Auto) 8.3 L [place] % (Auto) 4.8 Eos % (Auto) 0.1 Baso % (Auto) 0.3 Neut # (Auto) 6.8 Lymph # (Auto) 0.7 L [place] # (Auto) 0.4 Eos # (Auto) 0.0 Baso # (Auto) 0.0 Immature Gran % 0.5 Nucleated RBC % 0.0 Immature Gran # 0.04 Nucleated RBCs # 0.00 Sodium Potassium Chloride Carbon Dioxide Anion Gap BUN Creatinine GFR Calculation BUN/Creatinine Ratio Glucose POC Glucose 192 H 118 H Calculated Osmolality Calcium Total Bilirubin AST ALT Alkaline Phosphatase Total Protein Albumin Globulin Albumin/Globulin Ratio 11/18/16 11/17/16 11/17/16 05:45 20:14 16:18 WBC RBC Hgb Hct MCV MCH MCHC RDW Plt Count MPV Neut % (Auto) Lymph % (Auto) [place] % (Auto) Eos % (Auto) Baso % (Auto) Neut # (Auto) Lymph # (Auto) [place] # (Auto) Eos # (Auto) Baso # (Auto) Immature Gran % Nucleated RBC % Immature Gran # Nucleated RBCs # Sodium 137 Potassium 4.1 Chloride 101 Carbon Dioxide 23 Anion Gap 17.1 H BUN 26 H Creatinine 4.90 H GFR Calculation 12 BUN/Creatinine Ratio 5.00 L Glucose 109 H POC Glucose 168 H 247 H Calculated Osmolality 278.8 Calcium 8.5 Total Bilirubin 0.80 AST 598 H ALT 336 H Alkaline Phosphatase 148 H Total Protein 6.7 Albumin 2.4 L Globulin 4.3 H Albumin/Globulin Ratio 0.5 L DS: Provider Date of admission: 11/14/16 15:25 Primary care physician: Kyra Fitzpatrick MD Attending physician on admission: Jose Rivera III., Consults: 11/14/16 15:31 Consult to Physician [CONS] Routine Comment: Medical management of diabetes Consulting Provider: Princess Cassidy When should Consulting Provider be notified: Now Person Notified: charlene Date Notified: 11/14/16 Time Notified: 16:53 Consult Notification Comment: made office aware, states she is out for 2 days. called and made dr. jordan, instructional technologist, aware. 11/14/16 17:38 Consult to Dietitian [CONS] Routine Reason for Dietitian: Dietary Consult Consult Comment: weight loss Consult to Pastoral Services [CONS] Routine Comment: Pastoral Screen: Request Tube Coater Visit Pastoral Screen Source of Request: Patient 11/14/16 21:22 Consult to Physician [CONS] Routine Comment: dialysis patient of Dr. Nick Consulting Provider: Wes Nick When should Consulting Provider be notified: In am Person Notified: left voicemail for jeanette @ dr nick office Date Notified: 11/15/16 Time Notified: 09:18 11/16/16 11:32 Consult to Case Mgmt/Social Srvs [CONS] Routine Reason for Case Mgmt/Social Srvs: Rehab Swingbed/SNF/Fci Consult to Occupational Therapy [CONS] Routine Reason for Occupational Therapy: Evaluate and Treat Consult to Physical Therapy [CONS] Routine Reason for Physical Therapy: Evaluate and Treat Discharging clinician: GUNNAR Jaeger Expected date of discharge: 11/18/16
[2016-11-18 15:39] VITALS: BP 127/51
--- NOTE | 2016-11-18 18:14 | Nephrology Progress Note ---
Nephrology - PN: Subj Interval history: She feels better today. No shortness of breath. Exam (PN)-Nephrology - Vital Signs Vital signs: Period Temp Pulse Resp BP Sys/Willams Pulse Ox Last 24 Hr 97.3 F-98.2 F 60-68 18-20 120-142/44-57 90-96 Exam: ENT: Normal Cardiovascular: Regular rate and rhythm. No murmur rub or gallop Lungs: Clear Extremities: No edema - Lab 11/18/16 07:27 11/18/16 05:45 Most recent lab results Calcium 8.5 MG/DL (8.5-10.1) 11/18/16 05:45 Magnesium 2.5 MG/DL (1.8-2.4) H 11/17/16 04:38 Assessment and Plan (1) ESRD on hemodialysis Status: Chronic Assessment and plan: 66-year-old woman admitted with: * ESRD. Dialysis TTS * Colon cancer. Status post right hemicolectomy * Diabetes mellitus * Hypertension * CAD * Peripheral vascular disease Current Visit: No (2) status post right hemicolectomy Status: Resolved Current Visit: Yes (3) Colon cancer Status: Acute Current Visit: No Qualifiers: Colon location: ascending Qualified Code(s): C18.2 - Malignant neoplasm of ascending colon (4) Compression fracture of L3 lumbar vertebra Status: Acute Current Visit: No (5) Hypertension Problem details: BP trending low since volume removal with HD yesterday. Stopped clonidine, reduced norvasc to 5mg daily to allow enough BP for additional volume removal tomorrow with day #3/3 initiation. Status: Acute Current Visit: No (6) CAD (coronary artery disease) Status: Chronic Current Visit: No Qualifiers: Coronary Disease-Associated Artery/Lesion type: [place] artery [place] vs. 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 Chronic kidney disease stage: on chronic dialysis Qualified Code(s): E11.22 - Type 2 diabetes mellitus with diabetic chronic kidney disease; N18.6 - End stage renal disease; Z79.4 - termite treater helper (current) use of insulin; Z99.2 - Dependence on renal dialysis (8) History of coronary artery bypass surgery Status: Chronic Current Visit: No (9) PVD (peripheral vascular disease) Status: Chronic Current Visit: No Specialty Discharge - Follow Up or Referrals Follow up with: Jose Rivera III., MD [Physician] - 1 Week (CALL OFFICE ON MONDAY TO SCHEDULE AN APPOINTMENT) Kyra Fitzpatrick MD [Primary Care Provider] - 2 Weeks (CALL OFFICE ON MONDAY TO SCHEDULE AN APPOINTMENT)
--- NOTE | 2016-11-18 18:23 | XRay Report ---
History: Shortness of breath Date: 11/18/2016 Study: Chest x-ray AP portable Comparison exam: November 09, 2016 There is continued cardiomegaly. The pulmonary vasculature is slightly prominent. The mediastinal contours are unchanged. A right IJ dialysis access catheter is well-positioned. The lungs are generally clear for shallow breath. There is no gross pleural effusion. Osseous structures are similar. Impression: Cardiomegaly and evidence of mild CHF without overt pulmonary edema PROCEDURE INTERPRETED AT [facility] DEPARTMENT OF RADIOLOGY Final Report Signed by: Dr. Abigail Botello
== END 2016-11-18 18:00 | DRG 329 ==
LOC: N.OR 08:08 → N.SDSINP 08:09 → N.CC 15:25 → N.3E 11-15 17:23
PROVIDERS: ADMIT Surgery; ATTEND Surgery

== ENCOUNTER 2017-01-28 05:28 | Inpatient (IN) ==
--- NOTE | 2017-01-28 06:11 | Emergency Department Note ---
Arrival - Arrival Chief Complaint: Fall ED Nursing Triage Note: Patient to ED via EMS with c/o back pain after having a fall yesterday when she bumped her head and landed on her back. Patient has hearing problems but can read questions. Patient is recieving treatment for RF and colon CA. Mode of Arrival: Stretcher Time Seen by Provider: 01/28/17 05:56 - History of Present Illness HPI Narrative: This is a 66-year-old female of descent with a history of coronary artery disease status post coronary artery bypass graft surgery, previous stroke , end-stage renal disease on hemodialysis Monday with Dr. Glover, type 2 diabetes, hypertension, hyperlipidemia, chronic wouns, colon cancer found on screening colonoscopy for which she had a right hemicolectomy in October 2016, chronic diabetic foot ulcers which she is followed in the wound clinic who presents by EMS with altered mental status. According to the she went to sleep at 7 PM last evening and slept through the night until 2 AM when he heard her coughing. He attempted to wake her up and found her to be confused and apparently hard of hearing. The patient was able to answer questions in great detail for the medical interviewer although she did appear to be hard of hearing. The insists that she normally has no difficulty hearing and no difficulty speaking. In addition the patient fell yesterday hitting her head but was able to get up on her own and did not feel that she needed medical attention. She has chronic low back pain caused by osteoporosis and for which she has had 3 previous "cement injections." Allergies/Adverse Reactions: Allergies Allergy/AdvReac Type Severity Reaction Status Date / Time No Known Allergies Allergy Verified 01/28/17 05:43 Home Medications: Home Medications Medication Instructions Recorded Confirmed Type Meclizine HCl 25 mg PO DAILY PRN 01/19/16 01/11/17 History Cholecalciferol [Vitamin D3] 2,000 unit PO DAILY 03/28/16 01/25/17 History Insulin Aspart Prot/Asp 70/30 10 unit SUBCUT DIRECTED PRN 03/28/16 01/25/17 History [NovoLOG Mix 70/30] Gabapentin 300 mg PO BID 03/29/16 01/25/17 History Amiodarone Tab [Cordarone Tab] 200 mg PO BID 06/22/16 01/25/17 History Skin Healing Oint (Aquaphor) 1 applic TOP DIRECTED 06/22/16 01/25/17 History [Aquaphor] Aspirin [Ecotrin] 81 mg PO DAILY #60 tablet. 08/29/16 01/25/17 Rx Insulin Lispro [HumaLOG] See Protocol SUBCUT ACHS unit 09/12/16 01/25/17 Rx Pantoprazole Tab [Protonix Tab] 40 mg PO DAILY tablet 09/12/16 01/25/17 Rx Amlodipine Besylate 20 mg PO BID 11/14/16 01/25/17 History Atorvastatin [Lipitor] 20 mg PO DAILY 11/14/16 01/25/17 History HYDROcodone/ACETAMIN 7.5-325 1 tablet PO Q4H #14 tablet 11/18/16 01/25/17 Rx [[place] 7.5-325] Methocarbamol Tab [Robaxin Tab] 500 mg PO BID PRN #20 tablet 12/17/16 01/25/17 Rx traMADol TAB [Ultram] 50 mg PO TID PRN 01/11/17 01/25/17 History Review of System - Review of System Constitutional: Absent: fever, night sweats Eyes: Absent: redness, vision change Head/Ears/Nose/Throat: Present: other (New onset difficulty hearing) Cardiovascular: Absent: dyspnea on exertion, orthopnea Gastrointestinal: Absent: diarrhea, constipation, hematemesis Genitourinary female: Absent: dysuria, frequency, genital lesions Musculoskeletal: Present: back pain. Absent: joint swelling, lower back pain Skin: Absent: change in color, change in hair/nails Neurological: Absent: headache, numbness, confusion Psychiatric: Absent: anxiety, depression Endocrine: Absent: polydipsia, polyuria Hematological/Lymphatic: Absent: easy bruising, lymphadenopathy Allergic/Immunologic: Absent: urticaria, itchy eyes Medical,Surgical,& Family Hx - Medical History Cardio: History of: CHF, CAD, Hypertension (medication), SD, PVD, Cardiovascular Problems (dr anderson.) Psychological: History of: Anxiety Disorders, Depression Neurology: History of: Peripheral Neuropathy (medication), TIA (2 months ago.), Vertigo No history of: Brain Aneurysm, Dementia, Seizures HEENT: History of: Eye Problem (related to diabetes; READING GLASSES), Dental Problems Endocrine: History of: Diabetes Mellitus (IDDM), Diabetes Mellitus (NIDDM), Dyslipidemia Respiratory: History of: Respiratory Problems (had flu vaccine up to date with pneun vaccine) Renal: History of: Dialysis (CHEST CATHETERS AV FISTULA, JOSEPHINE KAY, [place], [place].), Renal Failure (DR GLOVER.), Renal Problems Gastrointestinal: History of: GERD (medication), Hematochezia, Polyps, Gastrointestinal Cancer, GI Problems (HX BLOOD IN STOOL) Musculoskeletal: History of: Back/Neck Problems (Back pain), Degenerative Disk Disease No history of: Amputation Comment Only: Musculoskeletal Problems (ARTHRITIS) Hematology: History of: Anemia (chronic disease), Blood Transfusion Reaction (3 months ago) Reproductive: No history of: Abnormal Pap Smear, Breast Cancer, Reproductive Cancer Other: History of: Cancer No history of: Anesthesia Reactions - Surgical History Cardiac Surgeries: Sugical HX of: Femoral-Popliteal Bypass Graft, Cardiac Catheterization, Cardiac Surgery (Bypass), Carotid Endarterectomy (08/24/16), Vascular Access Devices (dialysis graft LEFT arm; Dialysis catheters in right subclavin) Thoracic Surgeries: Patient denies;: Organ Transplant, Lobectomy Neurologic Surgeries: Patient denies: Brain Aneurysm, Neurologic Surgery HEENT Surgeries: Surgical HX of: Carotid Endarterectomy (08/24/16), Eye Surgery ( BILATERAL cataract sugery) Patient denies: Thyroid Surgery, Tonsilectomy & Adenoidectomy Abdominal Surgeries: Surgical HX of: Abdominal Surgery (colon surgery.), Colonoscopy (PER DR WATKINS IN JULY), EGD Patient denies: Appendectomy, Cholecystectomy, Gastric Bypass Surgery, Hernia Repair Reproductive Surgeries: Surgical HX of;: Dilation and Curettage, Gynecologic Surgery Patient denies;: Genitourinary Surgery Orthopedic Surgeries: Surgical HX of;: Implanted Devices (PORT IN RT UPPER CHEST , FISTULA LEFT ARM.), Spinal Surgery (Injections for pain. CEMENT IN BACK X2.) Patient denies;: Orthopedic Surgery - Family History Family History: Reports;: Family Cancer (MOTHER (breast)), Family Diabetes ( Mother), Family Heart Disease (sister, brother), Family Hypertension (sister, brother) Denies;: Family Anesthesia Reaction, Family Psychiatric Problems, Family Stroke - Social History Smoking Status: Never smoker Frequency of Alcohol Use: None Type of Drug Use: None Exam Vital Signs: Vital Signs Temperature 97.6 F 01/28/17 05:28 Pulse Rate 51 L 01/28/17 05:28 Respiratory Rate 20 01/28/17 05:28 Blood Pressure 116/49 01/28/17 05:28 O2 Sat by Pulse Oximetry 96 01/28/17 05:28 - General Exam limited due to: ALOC - Head Head exam: Present: atraumatic, normocephalic - Eye Eye exam: Present: PERRL, EOMI - ENT ENT exam: Present: normal exam, normal oropharynx - Neck Neck exam: Present: normal inspection, full ROM - Chest Chest inspection: Present: normal inspection, symmetric chest wall rise - Respiratory Respiratory exam: Present: normal lung sounds bilaterally - Cardiovascular Cardiovascular exam: Present: regular rate, normal rhythm - Abdominal Exam Abdominal exam: Present: soft, normal bowel sounds - Extremities Exam Extremities exam: Present: normal inspection, full ROM - Back Exam Back exam: Present: normal inspection, full ROM - Neurological Exam Neurological exam: Present: alert, CN II-XII intact - Skin Skin exam: Present: warm, dry
--- NOTE | 2017-01-28 06:38 | EKG Report ---
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
[2017-01-28 06:56] LABS: Basophils % 0.2 % (0.0-0.8); Hematocrit 34.2 VOL% (35.7-47.0); Hemoglobin 10.6 GM/DL (12.0-16.0); Immature Granulocytes % 0.8 %; Lymphocytes # 0.4 10*3/uL (1.4-4.0); Lymphocytes % 3.1 % (21.3-54.2); Mean Corpuscular Hemoglobin 27 PG (27-34); Mean Corpuscular Volume 86.1 FL (87-102); Mean Platelet Volume 10.9 FL (9.6-12.0); Monocytes # 1.2 10*3/uL (0.11-0.8); Monocytes % 9.5 % (1.7-12.7); Neutrophils # 10.5 10*3/uL (1.4-7.4); Neutrophils % 86.4 % (38.7-73.9); Platelet Count 196 T/CUMM (130-400); Red Blood Count 3.97 MC/CUMM (3.8-5.5); Red Cell Distribution Width 19.1 % (9.3-17.3); White Blood Count 12.1 T/CUMM (4-12)
[2017-01-28 07:16] LABS: VBG Base Excess -1.9 MEQ/L (0-4); VBG HCO3 22.7 MEQ/L (24-28); VBG Oxygen Saturation 91.6 %; VBG PCO2 45.1 MMHG (41-51); VBG PH 7.335; VBG PO2 68.7 MMHG (17-40)
[2017-01-28 07:25] LABS: Band Neutrophils 2 % (0-10); Hypochromasia 1+; Lymphocytes 4 % (20-55); Microcytosis 1+; Segmented Neutrophils 86 % (50-85); Total Cells Counted 100
[2017-01-28 07:26] LABS: Ovalocytes Few; Platelet Estimate Adequate
[2017-01-28 07:27] LABS: Albumin 2.8 G/DL (3.4-5.0); Bilirubin,Total 1.3 MG/DL (0.2-1.0); Calcium 9.1 MG/DL (8.5-10.1); Total Protein 6.8 G/DL (6.4-8.3)
[2017-01-28 07:29] LABS: Troponin I Only 0.662 NG/ML (0.00-0.045)
--- NOTE | 2017-01-28 08:00 | CT Report ---
History: Altered mental status Date: 01/28/2017 Study: CT head without contrast Comparison exam: August 19, [address] sections were obtained through the head without IV contrast. Total DLP measures 2190 mGy*cm. There is no acute abnormality of the calvarium. There is moderate distal carotid artery calcification bilaterally. The ventricles are midline in position without evidence of hydrocephalus. There is no mass or parenchymal hemorrhage. There is no gross CT evidence of acute cortical stroke. There is a small amount of ill-defined low density in the periventricular white matter without mass effect compatible with changes of small vessel disease. There is a chronic lacunar infarct in the right thalamus. There is no acute extra-axial hematoma. Impression: No acute intracranial process compared to the previous study. Chronic ischemic changes as before This CT exam was performed using one or more the following dose reduction techniques: Automated exposure control, adjustment of the MA and/or KV according to patient size, or use of iterative reconstruction technique. PROCEDURE INTERPRETED AT [facility] DEPARTMENT OF RADIOLOGY Final Report Signed by: Dr. Abigail Botello
[2017-01-28 08:14] LABS: Apearance,Urine CLOUDY (Clear); Bacteria,Urine Occasional /HPF (Few); Blood, Urine Small mg/dL (Negative); Glucose,Urine (UA) Negative (Negative); Ketones,Urine Negative (Negative); Mucus,Urine Occasional /LPF (Occasional); Nitrite,Urine Negative (Negative); Protein,Urine 100 MG/DL; RBC,Urine 165 /HPF (0-4); Squamous Epithelial Cell,Urine Few /HPF (0-10); Urine Specific Gravity 1.024 (1.001-1.035); Urine Urobilinogen < 2.0 EU/DL (0.2-1.0); WBC,Urine 1178 /HPF (0-6)
[2017-01-28 08:17] LABS: Bilirubin,Urine Small mg/dL (Negative); Urine Color Dark Yellow (Yellow)
--- NOTE | 2017-01-28 10:24 | EKG Report ---
Stationary ECG Study [facility] ER Test Date: 01/28/2017 8:34:16 AM Pat Name: SIMONE NICKERSON Department: Room: EDWAIT Gender: F Mica Builder: : 1950 Requested by: Diego Silva Order Number: [id number] Reading MD: APRIL BARFIELD Intervals [place] Rate: 51 P: 999 MN: 0 QRS: -61 QRSD: 133 T: 145 QT: 445 QTc: 423 Interpretive Statements UNCERTAIN REGULAR RHYTHM INTRAVENTRICULAR CONDUCTION DELAY WARNING: DATA QUALITY MAY AFFECT INTERPRETATION Electronically Signed On 01-28-17 12:33:51 CDT by APRIL BARFIELD [email or web address]
[2017-01-28] MEDS ORDERED: diphenhydrAMINE CAP 25 MG CAPSULE PO PRN (10:27)
[2017-01-28] MEDS ORDERED: ONDANSETRON 4 MG/2 ML VIAL IV PRN (10:27)
[2017-01-28] MEDS ORDERED: DEXTROSE 50% 25 GM/50 ML SYRINGE IV PRN (10:27)
[2017-01-28] MEDS ORDERED: PROMETHAZINE 25 MG/1 ML VIAL IM PRN (10:27)
[2017-01-28] MEDS ORDERED: ACETAMINOPHEN 325 MG TABLET PO PRN ×2 (10:27)
[2017-01-28] MEDS ORDERED: DOCUSATE SODIUM 100 MG CAPSULE PO PRN (10:27)
[2017-01-28] MEDS ORDERED: GLUCAGON 1 MG VIAL IM PRN (10:27)
[2017-01-28] MEDS ORDERED: MORPHINE 2 MG/1 ML SYRINGE IV PRN ×2 (10:34)
--- NOTE | 2017-01-28 10:48 | Hospitalist History & Physical ---
Assessment and Plan - Time spent with patient Time spent with patient: Greater than 30 minutes (1) Wheezing Status: Acute Assessment and plan: 66-year-old -[place] female with multiple medical problems admitted with altered mental status due to UTI, bilateral wheezing, and intractable back pain. Dr. Burrell will see and examine patient and further recommendations to follow. Altered mental status/UTI--patient has been started on IV Rocephin which will cover both her wheezing and her UTI. Will check a bladder scan for residual after she urinates to check for stagnant urine as a cause for her UTI. Intractable back pain--patient has received multiple injections just recently has another scheduled on Monday with Dr. Muhammad. Will notify Dr. Muhammad on Monday morning of patient's admission and consult him for assistance with her pain. Once her medicines have been verified in the computer I will restart her home pain medications and give her as needed morphine for breakthrough pain. If she continues to have intractable pain may need to consult distance education coordinator pain specialist. She is complaining of increasing pain since her fall yesterday so will check lumbar and thoracic spine x-rays and compared to previous ones. Diabetes/hypertension/hyperlipidemia--restart all home medications once they have been verified. We will continue to monitor her blood sugars and blood pressures for her admission. Chronic wound left lower extremity--patient's wound is almost nearly healed. There are no signs of infection. Care orders have been written. She will need to follow-up with Dr. Miguel Munroe in the wound center after discharge. Wheezing--patient is wheezing bilaterally with right greater than left. Started her on some every 4 duo nebs and Rocephin should help cover. Unsure if this is a COPD versus CHF exacerbation. Chest x-ray is pending. We will treat accordingly. Current Visit: Yes (2) UTI (urinary tract infection) Status: Acute Current Visit: Yes (3) Altered mental status Status: Acute Current Visit: Yes (4) Diabetes Status: Chronic Current Visit: No Qualifiers: Diabetes mellitus type: type 2 Diabetes mellitus complication status: with kidney complications Diabetes mellitus complication detail: with chronic kidney disease Diabetes mellitus long-term insulin use: with petroleum terminal plant operator use Chronic kidney disease stage: on chronic dialysis Qualified Code(s): E11.22 - Type 2 diabetes mellitus with diabetic chronic kidney disease; N18.6 - End stage renal disease; Z79.4 - termite helper (current) use of insulin; Z99.2 - Dependence on renal dialysis (5) CAD (coronary artery disease) Status: Chronic Current Visit: No Qualifiers: Coronary Disease-Associated Artery/Lesion type: [place] artery [place] vs. transplanted heart: [place] heart Associated angina: without angina Qualified Code(s): I25.10 - Atherosclerotic heart disease of [place] coronary artery without angina pectoris (6) Essential hypertension Status: Chronic Current Visit: No (7) History of coronary artery bypass surgery Status: Chronic Current Visit: No (8) Toe ulcer due to DM Status: Chronic Current Visit: No (9) PVD (peripheral vascular disease) Status: Chronic Current Visit: No (10) ESRD (end stage renal disease) on dialysis Problem details: Routine CHD today. Orders written. Status: Chronic Current Visit: No (11) ESRD on hemodialysis Status: Chronic Current Visit: No (12) Colon cancer Status: Acute Current Visit: No Qualifiers: Colon location: ascending Qualified Code(s): C18.2 - Malignant neoplasm of ascending colon (13) Status post carotid endarterectomy Status: Chronic Current Visit: No (14) Intractable back pain Status: Acute Current Visit: No (15) Bradycardia Status: Acute Current Visit: No (16) status post right hemicolectomy Status: Resolved Current Visit: No History of Present Illness Chief complaint: Low back pain History of present illness: Ms. Fuchs is a 66 year old -Eth[place]ian female with history of CAD status post CABG followed by Dr. Balderas, history of stroke, end-stage renal disease on hemodialysis on Monday with Dr. Glover, diabetes, hypertension, hyperlipidemia, chronic wound left lower extremity followed by Dr. Miguel Munroe in the wound center, colon cancer status post colectomy by Dr. Rivera III in October, Mediport placement 3 days ago to start chemo next week with Dr. Rolon, chronic back pain with multiple injections by Dr. Muhammad presenting to the ED with a fall with increasing back pain and altered mental status. Patient was mildly confused from her baseline but she was able to answer approximately 75% of her questions. Remainder of history was obtained from the and son who works here at the hospital. states that the patient fell yesterday and hit her head and her back pain has worsened since then. She had received [address] Muhammad the day before. She is scheduled to get 2 more injections this coming Monday. states she was fine after falling other than complaints of increased back pain and she went to bed without any problems. He states patient woke up multiple times in the middle the night with confusion and hard of hearing. Patient is afebrile and vital signs are stable other than bradycardia with heart rate in the 40s and 50s. Upon review of her chart this is patient's baseline. Her low white count is mildly elevated at 12.1, creatinine 4.5 which is her baseline, her bilirubin is mildly elevated at 1.3 which is a new finding, troponin mildly elevated at 0.662 but this is baseline for her, she does have a significant UTI with moderate leukocytes. Patient states she does urinate though she is on HD but not a whole lot. CT scan is negative and chest x-ray is pending. Upon exam she is sleepy but arousable and will answer some questions. She is alert and oriented. Her only complaints is low back pain. She does have some audible wheezing with right greater than left. She is also complaining of being hard of hearing which is new for her. Her back is tender to palpation, bilateral lower extremities with normal sensation and motor movement. After discussion with Dr. Silva the ED physician and Dr. Burrell the admitting hospitalist, it was agreed patient will be admitted for further evaluation and treatment. Patient's medicines need to be verified in the system and they will be reconciled and she is a full code. Home Medications Medication Instructions Recorded Confirmed Type Meclizine HCl 25 mg PO DAILY PRN 01/19/16 01/11/17 History Cholecalciferol [Vitamin D3] 2,000 unit PO DAILY 03/28/16 01/25/17 History Insulin Aspart Prot/Asp 70/30 10 unit SUBCUT DIRECTED PRN 03/28/16 01/25/17 History [NovoLOG Mix 70/30] Gabapentin 300 mg PO BID 03/29/16 01/25/17 History Amiodarone Tab [Cordarone Tab] 200 mg PO BID 06/22/16 01/25/17 History Skin Healing Oint (Aquaphor) 1 applic TOP DIRECTED 06/22/16 01/25/17 History [Aquaphor] Aspirin [Ecotrin] 81 mg PO DAILY #60 tablet. 08/29/16 01/25/17 Rx Insulin Lispro [HumaLOG] See Protocol SUBCUT ACHS unit 09/12/16 01/25/17 Rx Pantoprazole Tab [Protonix Tab] 40 mg PO DAILY tablet 09/12/16 01/25/17 Rx Amlodipine Besylate 20 mg PO BID 11/14/16 01/25/17 History Atorvastatin [Lipitor] 20 mg PO DAILY 11/14/16 01/25/17 History HYDROcodone/ACETAMIN 7.5-325 1 tablet PO Q4H #14 tablet 11/18/16 01/25/17 Rx [[place] 7.5-325] Methocarbamol Tab [Robaxin Tab] 500 mg PO BID PRN #20 tablet 12/17/16 01/25/17 Rx traMADol TAB [Ultram] 50 mg PO TID PRN 01/11/17 01/25/17 History Allergies Allergy/AdvReac Type Severity Reaction Status Date / Time No Known Allergies Allergy Verified 01/28/17 05:43 Medical,Surgical,& Family Hx - Medical History Cardio: History of: CHF, CAD, Hypertension (medication), [place], PVD, Cardiovascular Problems (dr balderas.) Psychological: History of: Anxiety Disorders, Depression Neurology: History of: Peripheral Neuropathy (medication), TIA (2 months ago.), Vertigo No history of: Brain Aneurysm, Dementia, Seizures HEENT: History of: Eye Problem (related to diabetes; READING GLASSES), Dental Problems Endocrine: History of: Diabetes Mellitus (IDDM), Diabetes Mellitus (NIDDM), Dyslipidemia Respiratory: History of: Respiratory Problems (had flu vaccine up to date with pneun vaccine) Renal: History of: Dialysis (CHEST CATHETERS AV FISTULA, [facility]UL, [place], [facility], [place] Renal Failure (DR GLOVER.), Renal Problems Gastrointestinal: History of: GERD (medication), Hematochezia, Polyps, Gastrointestinal Cancer, GI Problems (HX BLOOD IN STOOL) Musculoskeletal: History of: Back/Neck Problems (Back pain), Degenerative Disk Disease No history of: Amputation Comment Only: Musculoskeletal Problems (ARTHRITIS) Hematology: History of: Anemia (chronic disease), Blood Transfusion Reaction (3 months ago) Reproductive: No history of: Abnormal Pap Smear, Breast Cancer, Reproductive Cancer Other: History of: Cancer No history of: Anesthesia Reactions - Surgical History Cardiac Surgeries: Sugical HX of: Femoral-Popliteal Bypass Graft, Cardiac Catheterization, Cardiac Surgery (Bypass), Carotid Endarterectomy (08/24/16), Vascular Access Devices (dialysis graft LEFT arm; Dialysis catheters in right subclavin) Thoracic Surgeries: Patient denies;: Organ Transplant, Lobectomy Neurologic Surgeries: Patient denies: Brain Aneurysm, Neurologic Surgery HEENT Surgeries: Surgical HX of: Carotid Endarterectomy (08/24/16), Eye Surgery ( BILATERAL cataract sugery) Patient denies: Thyroid Surgery, Tonsilectomy & Adenoidectomy Abdominal Surgeries: Surgical HX of: Abdominal Surgery (colon surgery.), Colonoscopy (PER DR WATKINS IN JULY), EGD Patient denies: Appendectomy, Cholecystectomy, Gastric Bypass Surgery, Hernia Repair Reproductive Surgeries: Surgical HX of;: Dilation and Curettage, Gynecologic Surgery Patient denies;: Genitourinary Surgery Orthopedic Surgeries: Surgical HX of;: Implanted Devices (PORT IN RT UPPER CHEST , FISTULA LEFT ARM.), Spinal Surgery (Injections for pain. CEMENT IN BACK X2.) Patient denies;: Orthopedic Surgery - Family History Family History: Reports;: Family Cancer (MOTHER (breast)), Family Diabetes ( Mother), Family Heart Disease (sister, brother), Family Hypertension (sister, brother) Denies;: Family Anesthesia Reaction, Family Psychiatric Problems, Family Stroke - Social History Smoking Status: Never smoker Frequency of Alcohol Use: None Type of Drug Use: None Marital Status: Lives With:: Spouse Functional capacity: uses cane/walker 12 point system: reviewed and no additional remarkable complaints except as stated Exam - Constitutional Vitals: Period Temp Pulse Resp BP Sys/Willams Pulse Ox Last 24 Hr 97.6 F-97.6 F 51-51 20-20 116-116/49-49 96 Exam: Constitutional System: No distress. No tremulousness. Sleepy but arousable Head: Normocephalic, atraumatic. Ears, Nose and Throat System: No evidence of Otitis or Mastoiditis. No epistaxis or discharge Eyes System: Pupils equal, round, and reactive. Extraocular muscles intact. Neck: Supple, without adenopathy, No jugular venous distention. No thyromegaly, neck mass, or prior surgery apparent. Respiratory System: Chest bilateral wheezing right greater than left to auscultation. Cardiovascular System: Heart with bradycardic rate and rhythm. 2/6 murmur. GI System: Abdomen soft, nontender. Normo active bowel sounds present. Well- healed midline incision Musculoskeletal System: limbs with no pedal edema. Diminished distal pulses. Well-healing left medial foot wound, clean with no signs of infection Neurological System: No discernable sensory deficit. No aphasia Psychiatric System: Conversation is rational she is sleepy but arousable Results - Labs CBC & BMP: 01/28/17 06:26 01/28/17 06:26 Lab Results: I have reviewed the past 24 hour labs - Impressions Junctional rhythm
--- NOTE | 2017-01-28 11:02 | XRay Report ---
History: Pain to upper back after fall Date: 01/28/2017 Study: Thoracic spine AP and lateral Comparison exam: Multiple studies, including the September 14, 2016 thoracic MRI There is chronic moderate T11 compression which was present on the comparison MRI. There is also mild chronic anterior wedge compression of T7. No definite acute fracture seen. There is no malalignment. There is mild anterior spondylosis. There is osteopenia. Bilateral upper extremity central venous catheters are place. Please also refer to the lumbar x-ray from today as well, dictated separately Impression: Chronic T11 and T7 compression fractures. No definite acute abnormality. Degenerative changes. Osteopenia PROCEDURE INTERPRETED AT [facility] DEPARTMENT OF RADIOLOGY Final Report Signed by: Dr. Abigail Botello
--- NOTE | 2017-01-28 11:04 | XRay Report ---
History: Lower back pain after fall Date: 01/28/2017 Study: Lumbar spine 5 views Comparison exam: Lumbar spine x-ray December 17, 2016 There is no new lumbar fracture. The patient has undergone interval kyphoplasty at L1 and L4 since the previous study. Chronic compression fracture status post previous kyphoplasty are noted at L2 and L3 as before. There is scattered mild lumbar spondylosis. The lumbar disc spaces are well-maintained. There is osteopenia. There is mild to moderate facet hypertrophy. There is no focal lytic or blastic lesion. The sacroiliac joints are normal. Impression: No acute fracture. Interval kyphoplasty at L1 and L4 since the previous study. Chronic L2 and L3 fracture status post kyphoplasty. Osteopenia. Degenerative changes PROCEDURE INTERPRETED AT [facility] DEPARTMENT OF RADIOLOGY Final Report Signed by: Dr. Abigail Botello
[2017-01-28] MEDS: ALBUTEROL/IPRATROPIUM 3 ML NEB RESP TX SCH ×4 (11:27→23:34)
--- NOTE | 2017-01-28 11:31 | XRay Report ---
History: Altered mental status. Back pain after fall Date: 01/28/2017 Study: Chest x-ray AP portable Comparison exam: November 18, 2016 chest x-ray The right IJ dialysis catheter and left subclavian Mediport-type catheter are in stable satisfactory position. There is continued cardiomegaly. The mediastinal contours are unchanged in this patient status post prior median sternotomy. The pulmonary vasculature is not engorged. There is no gross pleural effusion. The lungs are generally clear. Osseous structures are unchanged. Impression: Cardiomegaly without overt CHF. No definite acute process PROCEDURE INTERPRETED AT [facility] DEPARTMENT OF RADIOLOGY Final Report Signed by: Dr. Abigail Botello
[2017-01-28] MEDS: ENOXAPARIN 30 MG/0.3 ML SYRINGE SUBCUT SCH (11:35)
[2017-01-28] MEDS: SODIUM CHLORIDE 0.9% 1,000 ML IV SCH ×2 (11:35→13:58)
[2017-01-28] MEDS: PANTOPRAZOLE 40 MG TABLET PO SCH (11:35)
[2017-01-28] MEDS: cefTRIAXone 1,000 MG in SODIUM CHLORIDE 0.9% 100 ML IV SCH (11:35)
[2017-01-28] MEDS: CHLORHEXIDINE 4% SOLN 118 ML BOTTLE TOP SCH (11:35)
[2017-01-28] MEDS ORDERED: SODIUM CHLORIDE 0.9% 250 ML IV ONE (12:01)
[2017-01-28] MEDS ORDERED: VANCOMYCIN INJ 750 MG in SODIUM CHLORIDE 0.9% 250 ML IV PRN (12:45)
[2017-01-28] MEDS ORDERED: VANCOMYCIN INJ 1,250 MG in SODIUM CHLORIDE 0.9% 250 ML IV ONE ×2 (14:00→21:00)
[2017-01-28] MEDS ORDERED: GENTAMICIN INJ 80 MG in PREMIX 1 EACH IV ONE (16:08)
--- NOTE | 2017-01-28 16:11 | Nephrology Consult Note ---
History of Present Illness Chief complaint: End-stage renal disease History of present illness: Ms. Fuchs is a 66 year old female with a history of end-stage renal disease due to hypertension and diabetes also has a history of coronary artery disease history of colon cancer and is scheduled to start chemotherapy in the coming weeks. Patient presented with altered mental status and a history of fall approximately 2 days before ago. Patient found to have urinary tract infection and has started on antibiotics. Initially on the floor patient was hypotensive she was transferred to ICU where she has responded to IV fluids. Nephrology has been consulted for renal replacement therapy as patient dialyzes on a Monday schedule with Dr. Glover as her provider. She denies any shortness of breath or chest pain. She had initial CT head that showed no acute changes there was chronic lacunar infarct noted. She has been afebrile and her blood pressure is better since she has received fluid boluses. Plan is for patient to do dialysis today and add gentamicin to her antibiotic coverage. Home Medications Medication Instructions Recorded Confirmed Type Meclizine HCl 25 mg PO BEDTIME PRN 01/19/16 01/28/17 History Cholecalciferol [Vitamin D3] 2,000 unit PO QAM 03/28/16 01/28/17 History Insulin Aspart Prot/Asp 70/30 10 unit SUBCUT DIRECTED PRN 03/28/16 01/28/17 History [NovoLOG Mix 70/30] Gabapentin 300 mg PO BID 03/29/16 01/28/17 History Amiodarone Tab [Cordarone Tab] 200 mg PO BEDTIME 06/22/16 01/28/17 History Insulin Lispro [HumaLOG] See Protocol SUBCUT ACHS unit 09/12/16 01/28/17 Rx Atorvastatin [Lipitor] 20 mg PO QAM 11/14/16 01/28/17 History Aspirin Chew Tab 81 mg PO QAM 01/28/17 01/28/17 History Furosemide [Furosemide] 80 mg PO QAM 01/28/17 01/28/17 History HYDROcodone/ACETAMIN 7.5-325 1 tablet PO Q4H PRN 01/28/17 01/28/17 History [[place] 7.5-325] Oxycodone HCl 5 - 10 mg PO QID PRN 01/28/17 01/28/17 History Pantoprazole Tab [Protonix Tab] 40 mg PO QAM 01/28/17 01/28/17 History Pregabalin [Lyrica] 75 mg PO TID 01/28/17 01/28/17 History Sucralfate 1 gm PO ACHS 01/28/17 01/28/17 History hydrALAZINE TAB [Apresoline Tab] 100 mg PO TID 01/28/17 01/28/17 History Allergies Allergy/AdvReac Type Severity Reaction Status Date / Time No Known Allergies Allergy Verified 01/28/17 05:43 Medical,Surgical,& Family Hx - Medical History Cardio: History of: CHF, CAD, Hypertension (medication), [place], PVD, Cardiovascular Problems (dr anderson.) Psychological: History of: Anxiety Disorders, Depression Neurology: History of: Peripheral Neuropathy (medication), TIA (2 months ago.), Vertigo No history of: Brain Aneurysm, Dementia, Seizures HEENT: History of: Eye Problem (related to diabetes; READING GLASSES), Dental Problems Endocrine: History of: Diabetes Mellitus (IDDM), Diabetes Mellitus (NIDDM), Dyslipidemia Respiratory: History of: Respiratory Problems (had flu vaccine up to date with pneun vaccine) Renal: History of: Dialysis (CHEST CATHETERS AV FISTULA, RAHUL, [facility], [facility], [place] Renal Failure (DR GLOVER.), Renal Problems Gastrointestinal: History of: GERD (medication), Hematochezia, Polyps, Gastrointestinal Cancer, GI Problems (HX BLOOD IN STOOL) Musculoskeletal: History of: Back/Neck Problems (Back pain), Degenerative Disk Disease No history of: Amputation Comment Only: Musculoskeletal Problems (ARTHRITIS) Hematology: History of: Anemia (chronic disease), Blood Transfusion Reaction (3 months ago) Reproductive: No history of: Abnormal Pap Smear, Breast Cancer, Reproductive Cancer Other: History of: Cancer No history of: Anesthesia Reactions - Surgical History Cardiac Surgeries: Sugical HX of: Femoral-Popliteal Bypass Graft, Cardiac Catheterization, Cardiac Surgery (Bypass), Carotid Endarterectomy (08/24/16), Vascular Access Devices (dialysis graft LEFT arm; Dialysis catheters in right subclavin) Thoracic Surgeries: Patient denies;: Organ Transplant, Lobectomy Neurologic Surgeries: Patient denies: Brain Aneurysm, Neurologic Surgery HEENT Surgeries: Surgical HX of: Carotid Endarterectomy (08/24/16), Eye Surgery ( BILATERAL cataract sugery) Patient denies: Thyroid Surgery, Tonsilectomy & Adenoidectomy Abdominal Surgeries: Surgical HX of: Abdominal Surgery (colon surgery.), Colonoscopy (PER DR WATKINS IN JULY), EGD Patient denies: Appendectomy, Cholecystectomy, Gastric Bypass Surgery, Hernia Repair Reproductive Surgeries: Surgical HX of;: Dilation and Curettage, Gynecologic Surgery Patient denies;: Genitourinary Surgery Orthopedic Surgeries: Surgical HX of;: Implanted Devices (PORT IN RT UPPER CHEST , FISTULA LEFT ARM.), Spinal Surgery (Injections for pain. CEMENT IN BACK X2.) Patient denies;: Orthopedic Surgery - Family History Family History: Reports;: Family Cancer (MOTHER (breast)), Family Diabetes ( Mother), Family Heart Disease (sister, brother), Family Hypertension (sister, brother) Denies;: Family Anesthesia Reaction, Family Psychiatric Problems, Family Stroke - Social History Smoking Status: Never smoker Frequency of Alcohol Use: None Type of Drug Use: None Review of Systems ROS unobtainable: due to mental status (Patient is awake alert but is very sleepy.) Exam - Vital Signs Vital signs: Period Temp Pulse Resp BP Sys/Willams Pulse Ox Last 24 Hr 97.6 F-99.3 F 42-52 14-20 83-151/38-58 86-100 - General Appearance General appearance: well-developed, well-nourished EENT: ATNC Neck: supple Respiratory: clear Cardiology: regular rate, regular rhythm Gastrointestinal: normoactive bowel sounds Integumentary: no rash Neurologic: no asterixis Musculoskeletal: no clubbing Results - Labs CBC & BMP: 01/28/17 06:26 01/28/17 06:26 Assessment and Plan (1) Diabetes Status: Chronic Assessment and plan: Glucoses have been acceptable. 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 transplanted heart: [place] heart Associated angina: without angina Qualified Code(s): I25.10 - Atherosclerotic heart disease of [place] coronary artery without angina pectoris (3) Diabetes mellitus Status: Chronic Current Visit: No Qualifiers: Diabetes mellitus type: type 2 Diabetes mellitus complication detail: with chronic kidney disease Diabetes mellitus regional intermodal truck driver insulin use: with regional intermodal truck driver use Chronic kidney disease stage: on chronic dialysis (4) Essential hypertension Status: Chronic Current Visit: No (5) Congestive heart failure Problem details: ef 50% Status: Resolved Assessment and plan: We will stop IV fluids due to patient having a history of congestive heart failure. Current Visit: No Qualifiers: Congestive heart failure type: unspecified congestive heart failure type Congestive heart failure chronicity: acute on chronic Qualified Code(s): I50.9 - Heart failure, unspecified (6) ESRD (end stage renal disease) on dialysis Problem details: Routine CHD today. Orders written. Status: Chronic Current Visit: No (7) Colon cancer Status: Chronic Assessment and plan: Patient has not started chemotherapy. She is status post right hemicolectomy. Current Visit: No Qualifiers: Colon location: ascending Qualified Code(s): C18.2 - Malignant neoplasm of ascending colon (8) status post right hemicolectomy Status: Resolved Current Visit: No (9) UTI (urinary tract infection) Status: Acute Assessment and plan: Patient has received vancomycin will add gentamicin 80 mg to with dialysis today. Plan for hemodialysis today. Current Visit: Yes (10) Lethargy Status: Acute Assessment and plan: More likely due to underlying urinary tract infection. However will check ammonia level as well. Initial CT head showed no acute changes. Current Visit: Yes
--- NOTE | 2017-01-28 16:54 | Dialysis Note ---
Dialysis Note - Dialysis Note Patient is seen on dialysis. She is tolerating the procedure. Blood pressures noted to be 120/36 pulse rate of 53. Trying to remove 1-1/2 L of fluid at this time. We will give an additional 500 cc of vancomycin and 80 mg of gentamicin on dialysis today. Cardiovascular is regular rate. Lungs are clear anterior abdomen is soft.
[2017-01-28] MEDS: INSULIN LISPRO 100 UNIT/ML SUBCUT SCH (17:56)
[2017-01-29] MEDS: ALBUTEROL/IPRATROPIUM 3 ML NEB RESP TX SCH ×5 (04:16→19:15)
[2017-01-29 05:13] LABS: Basophils % 0.3 % (0.0-0.8); Eosinophils % 0.3 % (0.00-10.9); Hematocrit 28.4 VOL% (35.7-47.0); Hemoglobin 8.8 GM/DL (12.0-16.0); Immature Granulocytes % 0.7 %; Immature Granulocytes Absolute 0.05 #; Lymphocytes # 0.6 10*3/uL (1.4-4.0); Lymphocytes % 7.3 % (21.3-54.2); Mean Corpuscular Hemoglobin 26 PG (27-34); Mean Platelet Volume 10.9 FL (9.6-12.0); Monocytes # 0.6 10*3/uL (0.11-0.8); Monocytes % 7.8 % (1.7-12.7); Neutrophils # 6.3 10*3/uL (1.4-7.4); Neutrophils % 83.6 % (38.7-73.9); Platelet Count 183 T/CUMM (130-400); Red Blood Count 3.38 MC/CUMM (3.8-5.5); Red Cell Distribution Width 19.1 % (9.3-17.3); White Blood Count 7.6 T/CUMM (4-12)
[2017-01-29 05:43] LABS: Calcium 8.5 MG/DL (8.5-10.1); Magnesium 2.4 MG/DL (1.8-2.4); Osmolality,Calculated 277.5 MOS/KG (273-304); Potassium 3.4 MMOL/L (3.5-5.1)
[2017-01-29] MEDS: PANTOPRAZOLE 40 MG TABLET PO SCH (08:37)
--- NOTE | 2017-01-29 09:44 | Nephrology Progress Note ---
Nephrology - PN: Subj Interval history: The patient is much more awake and alert today and is coherent. She has been hemodynamically stable. Tolerated dialysis on yesterday. No fevers or chills. However, yeast is noted in urine initial cultures. Adding Diflucan. Exam (PN)-Nephrology - Vital Signs Vital signs: Period Temp Pulse Resp BP Sys/Willams Pulse Ox Last 24 Hr 97.9 F-99.3 F 42-62 12-22 83-151/36-84 86-100 - General Appearance General appearance: well-developed, fatigue, frail EENT: ATNC Neck: supple Respiratory: clear Cardiology: regular rate, regular rhythm Gastrointestinal: normoactive bowel sounds, no tenderness Neurologic: alert and oriented x3 Musculoskeletal: no clubbing Psychiatric: mood/affect appropriate - Lab 01/29/17 04:48 01/29/17 04:48 Most recent lab results Calcium 8.5 MG/DL (8.5-10.1) 01/29/17 04:48 Magnesium 2.4 MG/DL (1.8-2.4) 01/29/17 04:48 Assessment and Plan (1) Diabetes Status: Chronic Assessment and plan: Glucoses have been acceptable. Current Visit: No Qualifiers: Diabetes mellitus type: type 2 Diabetes mellitus complication status: with kidney complications Diabetes mellitus complication detail: with chronic kidney disease Diabetes mellitus assisted insulin use: with assisted use Chronic kidney disease stage: on chronic dialysis Qualified Code(s): E11.22 - Type 2 diabetes mellitus with diabetic chronic kidney disease; N18.6 - End stage renal disease; Z79.4 - intermediate frame tender (current) use of insulin; Z99.2 - Dependence on renal dialysis (2) CAD (coronary artery disease) Status: Chronic Current Visit: No Qualifiers: Coronary Disease-Associated Artery/Lesion type: [place] artery [place] vs. transplanted heart: [place] heart Associated angina: without angina Qualified Code(s): I25.10 - Atherosclerotic heart disease of [place] coronary artery without angina pectoris (3) Diabetes mellitus Status: Chronic Current Visit: No Qualifiers: Diabetes mellitus type: type 2 Diabetes mellitus complication detail: with chronic kidney disease Diabetes mellitus equipment operator intermodal yard insulin use: with equipment operator intermodal yard use Chronic kidney disease stage: on chronic dialysis (4) Essential hypertension Status: Chronic Current Visit: No (5) Congestive heart failure Problem details: ef 50% Status: Resolved Assessment and plan: We will stop IV fluids due to patient having a history of congestive heart failure. Current Visit: No Qualifiers: Congestive heart failure type: unspecified congestive heart failure type Congestive heart failure chronicity: acute on chronic Qualified Code(s): I50.9 - Heart failure, unspecified (6) ESRD (end stage renal disease) on dialysis Problem details: Routine CHD today. Orders written. Status: Chronic Current Visit: No (7) Colon cancer Status: Chronic Assessment and plan: Patient has not started chemotherapy. She is status post right hemicolectomy. Current Visit: No Qualifiers: Colon location: ascending Qualified Code(s): C18.2 - Malignant neoplasm of ascending colon (8) status post right hemicolectomy Status: Resolved Current Visit: No (9) UTI (urinary tract infection) Status: Acute Assessment and plan: He is noted in urine. We will add Diflucan 100 mg daily. Current Visit: Yes (10) Lethargy Status: Resolved Assessment and plan: More likely due to underlying urinary tract infection. However will check ammonia level as well. Initial CT head showed no acute changes. Current Visit: Yes
[2017-01-29] MEDS: INSULIN LISPRO 100 UNIT/ML SUBCUT SCH ×2 (10:30→18:05)
[2017-01-29] MEDS: FLUCONAZOLE 100 MG TABLET PO SCH ×2 (10:42→11:53)
[2017-01-29] MEDS: ENOXAPARIN 30 MG/0.3 ML SYRINGE SUBCUT SCH (10:43)
--- NOTE | 2017-01-29 11:41 | Hospitalist Progress Note ---
Assessment and Plan (1) UTI (urinary tract infection) Status: Acute Assessment and plan: The patient has urinary tract infection and urine culture is showing yeast. We are going to add Diflucan. I am going to simplify the antibiotic biotic therapy and transfer the patient to the floor. We will advance diet. Current Visit: Yes Qualifiers: Urinary tract infection type: acute cystitis Hematuria presence: without hematuria Qualified Code(s): N30.00 - Acute cystitis without hematuria (2) Pulmonary hypertension Status: Chronic Current Visit: No (3) Stage 5 chronic kidney disease Status: Chronic Current Visit: No Hospitalist: Subjective Interval history: Ms. Fuchs who was admitted to hospital with altered mental status and evidence of septicemia. She has improved overnight. She had dialysis yesterday afternoon. She had IV antibiotics overnight and hemodynamics have improved. The patient is awake and alert. She has mild lethargy. Exam - Constitutional Vitals: Period Temp Pulse Resp BP Sys/Willams Pulse Ox Last 24 Hr 97.9 F-99.3 F 48-67 12-22 90-151/36-84 94-100 General appearance: mild distress - Respiratory Respiratory exam: Present: clear to auscultation bilaterally - Cardiovascular Cardiovascular exam: Present: regular rate and rhythm - GI/Abdominal GI/Abdominal exam: Present: normal bowel sounds Results - Labs CBC & BMP: 01/29/17 04:48 01/29/17 04:48 Lab Results: I have reviewed the past 24 hour labs
[2017-01-29] MEDS ORDERED: oxyCODONE IR 5 MG TABLET PO PRN ×2 (11:50→11:53)
[2017-01-29] MEDS ORDERED: MECLIZINE 25 MG TABLET PO PRN (11:50)
[2017-01-29] MEDS: CHLORHEXIDINE 4% SOLN 118 ML BOTTLE TOP SCH (11:51)
[2017-01-29] MEDS: cefTRIAXone 1,000 MG in SODIUM CHLORIDE 0.9% 100 ML IV SCH (11:59)
[2017-01-29] MEDS: ASPIRIN CHEW 81 MG TABLET PO SCH (12:00)
[2017-01-29] MEDS: CHOLECALCIFEROL 1,000 UNIT TABLET PO SCH (12:00)
[2017-01-29] MEDS: guaiFENesin/DM ER 600-30 MG TABLET PO PRN (13:44)
[2017-01-29] MEDS: GABAPENTIN 300 MG CAPSULE PO SCH (21:17)
[2017-01-29] MEDS: AMIODARONE 200 MG TABLET PO SCH (21:17)
[2017-01-30] MEDS: ALBUTEROL/IPRATROPIUM 3 ML NEB RESP TX SCH ×8 (00:14→23:30)
[2017-01-30 06:43] LABS: Calcium 8.7 MG/DL (8.5-10.1); Magnesium 2.6 MG/DL (1.8-2.4); Osmolality,Calculated 277.8 MOS/KG (273-304); Potassium 3.5 MMOL/L (3.5-5.1)
[2017-01-30] MEDS: INSULIN LISPRO 100 UNIT/ML SUBCUT SCH ×2 (08:11→17:17)
[2017-01-30] MEDS: guaiFENesin/DM ER 600-30 MG TABLET PO PRN (09:05)
[2017-01-30] MEDS: FUROSEMIDE 80 MG TABLET PO SCH (09:05)
[2017-01-30] MEDS: CHOLECALCIFEROL 1,000 UNIT TABLET PO SCH (09:34)
[2017-01-30] MEDS: GABAPENTIN 300 MG CAPSULE PO SCH ×2 (09:35→20:28)
[2017-01-30] MEDS: ENOXAPARIN 30 MG/0.3 ML SYRINGE SUBCUT SCH (09:36)
[2017-01-30] MEDS: CHLORHEXIDINE 4% SOLN 118 ML BOTTLE TOP SCH (09:36)
[2017-01-30] MEDS: PANTOPRAZOLE 40 MG TABLET PO SCH (09:36)
[2017-01-30] MEDS: FLUCONAZOLE 100 MG TABLET PO SCH ×2 (09:36→09:44)
[2017-01-30] MEDS: ASPIRIN CHEW 81 MG TABLET PO SCH (09:36)
[2017-01-30] MEDS: cefTRIAXone 1,000 MG in SODIUM CHLORIDE 0.9% 100 ML IV SCH (11:25)
--- NOTE | 2017-01-30 12:57 | Sleep Medicine Consult ---
Assessment and Plan (1) Unspecified sleep apnea Status: Acute Assessment and plan: With her comorbidities and the severity of her sleepiness, I do think sleep evaluation is indicated at some point. She does have multiple health problems ongoing and does not appear to be a good candidate for home sleep testing at this point while hospitalized. We will follow-up on her response to intervention and will either evaluate her later with HST or set her up for outpatient polysomnography. Current Visit: Yes (2) Diabetes Status: Chronic Assessment and plan: The prevalence rate for obstructive sleep apnea in patients with type 2 diabetes can be as high as 86%. Those patients with moderate to severe obstructive sleep apnea are at a greater risk for diabetic nephropathy and neuropathy. Compliance with CPAP therapy for these patients can lead to improvement in glycemic control and improvement in insulin sensitivity. Current Visit: No Qualifiers: Diabetes mellitus type: type 2 Diabetes mellitus complication status: with kidney complications Diabetes mellitus complication detail: with chronic kidney disease Diabetes mellitus correction insulin use: with predatory animal exterminator use Chronic kidney disease stage: on chronic dialysis Qualified Code(s): E11.22 - Type 2 diabetes mellitus with diabetic chronic kidney disease; N18.6 - End stage renal disease; Z79.4 - senior living (current) use of insulin; Z99.2 - Dependence on renal dialysis (3) Essential hypertension Status: Chronic Assessment and plan: The prevalence rate for obstructive sleep apnea patients with hypertension is 35 %. That rate can be as high as 80% in patients who require 4 or more medications for blood pressure control. Current Visit: No History of Present Illness Chief complaint: Sleep apnea History of present illness: Ms. Fuchs is a 66 year old female with a history of multiple health problems who is admitted with mental status changes felt secondary to metabolic encephalopathy from UTI and sepsis. She also had had a fall a few days before that but CT of the brain revealed no acute change, showing only old lacunar infarct. During her evaluation, it was notable that she had significant history of daytime fatigue and sleepiness. Sleep evaluation revealed a stop bang score of 5 and an [place] sleepiness score of 20. She does have a long history of loud snoring but no history of witnessed apneas. She does have difficulty with falling asleep anytime she sits steel. She denies any significant issues with nocturia. Once she falls asleep she usually stays asleep. She has never had previous sleep evaluation before. She is being treated for colon cancer. She had surgical intervention by Dr. Rivera, the third, and is followed by Dr. Rolon. She has a Mediport in place and is scheduled to initiate chemotherapy in a few weeks. She states with all this going on medically, she is lost about 50 pounds since February of last year. This weight loss is had no impact on her snoring or sleepiness. Home Medications Medication Instructions Recorded Confirmed Type Meclizine HCl 25 mg PO BEDTIME PRN 01/19/16 01/28/17 History Cholecalciferol [Vitamin D3] 2,000 unit PO QAM 03/28/16 01/28/17 History Insulin Aspart Prot/Asp 70/30 10 unit SUBCUT DIRECTED PRN 03/28/16 01/28/17 History [NovoLOG Mix 70/30] Gabapentin 300 mg PO BID 03/29/16 01/28/17 History Amiodarone Tab [Cordarone Tab] 200 mg PO BEDTIME 06/22/16 01/28/17 History Insulin Lispro [HumaLOG] See Protocol SUBCUT ACHS unit 09/12/16 01/28/17 Rx Atorvastatin [Lipitor] 20 mg PO QAM 11/14/16 01/28/17 History Aspirin Chew Tab 81 mg PO QAM 01/28/17 01/28/17 History Furosemide [Furosemide] 80 mg PO QAM 01/28/17 01/28/17 History HYDROcodone/ACETAMIN 7.5-325 1 tablet PO Q4H PRN 01/28/17 01/28/17 History [[place] 7.5-325] Oxycodone HCl 5 - 10 mg PO QID PRN 01/28/17 01/28/17 History Pantoprazole Tab [Protonix Tab] 40 mg PO QAM 01/28/17 01/28/17 History Pregabalin [Lyrica] 75 mg PO TID 01/28/17 01/28/17 History Sucralfate 1 gm PO ACHS 01/28/17 01/28/17 History hydrALAZINE TAB [Apresoline Tab] 100 mg PO TID 01/28/17 01/28/17 History Allergies Allergy/AdvReac Type Severity Reaction Status Date / Time No Known Allergies Allergy Verified 01/28/17 05:43 Review of systems: Otherwise unremarkable from a sleep standpoint Exam (Pulmonay) H&P - Constitutional Vitals: Period Temp Pulse Resp BP Sys/Willams Pulse Ox Last 24 Hr 97.2 F-99.5 F 53-88 16-20 96-146/40-64 95-100 Exam: She is chronically ill appearing in no acute distress. She is wearing nasal cannula O2. Pupils equal round reactive to light and accommodation. Extraocular movements intact. Oropharynx with a class III Mallampati exam. Neck supple without adenopathy or thyromegaly. No supraclavicular adenopathy is noted. Chest with symmetrical breath sounds without focal wheeze, rhonchi, or rales. Cardiac exam reveals a regular rhythm without murmur or gallop. Abdomen soft nontender without palpable hepatosplenomegaly or mass. Extremities are without edema or clubbing. Neurologically, she is grossly intact. She moves all extremities with good strength. Medical,Surgical,& Family Hx - Medical History Cardio: History of: CHF, CAD, Hypertension (medication), MA, PVD, Cardiovascular Problems (dr anderson.) Psychological: History of: Anxiety Disorders, Depression Neurology: History of: Peripheral Neuropathy (medication), TIA (2 months ago.), Vertigo No history of: Brain Aneurysm, Dementia, Seizures HEENT: History of: Eye Problem (related to diabetes; READING GLASSES), Dental Problems Endocrine: History of: Diabetes Mellitus (IDDM), Diabetes Mellitus (NIDDM), Dyslipidemia Respiratory: History of: Respiratory Problems (had flu vaccine up to date with pneun vaccine) Renal: History of: Dialysis ([facility], [facility], [facility], [place] Renal Failure (DR GLOVER.), Renal Problems Gastrointestinal: History of: GERD (medication), Hematochezia, Polyps, Gastrointestinal Cancer, GI Problems (HX BLOOD IN STOOL) Musculoskeletal: History of: Back/Neck Problems (Back pain), Degenerative Disk Disease No history of: Amputation Comment Only: Musculoskeletal Problems (ARTHRITIS) Hematology: History of: Anemia (chronic disease), Blood Transfusion Reaction (3 months ago) Reproductive: No history of: Abnormal Pap Smear, Breast Cancer, Reproductive Cancer Other: History of: Cancer No history of: Anesthesia Reactions - Surgical History Cardiac Surgeries: Sugical HX of: Femoral-Popliteal Bypass Graft, Cardiac Catheterization, Cardiac Surgery (Bypass), Carotid Endarterectomy (4/5/17), Vascular Access Devices (dialysis graft LEFT arm; Dialysis catheters in right subclavin) Thoracic Surgeries: Patient denies;: Organ Transplant, Lobectomy Neurologic Surgeries: Patient denies: Brain Aneurysm, Neurologic Surgery HEENT Surgeries: Surgical HX of: Carotid Endarterectomy (08/24/16), Eye Surgery ( BILATERAL cataract sugery) Patient denies: Thyroid Surgery, Tonsilectomy & Adenoidectomy Abdominal Surgeries: Surgical HX of: Abdominal Surgery (colon surgery.), Colonoscopy (PER DR WATKINS IN JULY), EGD Patient denies: Appendectomy, Cholecystectomy, Gastric Bypass Surgery, Hernia Repair Reproductive Surgeries: Surgical HX of;: Dilation and Curettage, Gynecologic Surgery Patient denies;: Genitourinary Surgery Orthopedic Surgeries: Surgical HX of;: Implanted Devices (PORT IN RT UPPER CHEST , FISTULA LEFT ARM.), Spinal Surgery (Injections for pain. CEMENT IN BACK X2.) Patient denies;: Orthopedic Surgery - Family History Family History: Reports;: Family Cancer (MOTHER (breast)), Family Diabetes ( Mother), Family Heart Disease (sister, brother), Family Hypertension (sister, brother) Denies;: Family Anesthesia Reaction, Family Psychiatric Problems, Family Stroke - Social History Smoking Status: Never smoker Frequency of Alcohol Use: None Type of Drug Use: None Marital Status: Lives With:: Spouse Results - Labs CBC & BMP: 01/29/17 04:48 01/30/17 05:15 Lab Results: I have reviewed the past 24 hour labs
[2017-01-30] MEDS: ZINC OXIDE PASTE 113 GM TUBE TOP SCH ×2 (14:47→20:28)
[2017-01-30] MEDS: AMIODARONE 200 MG TABLET PO SCH (20:28)
--- NOTE | 2017-01-30 23:49 | Nephrology Progress Note ---
Nephrology - PN: Subj Interval history: She was admitted with confusion. UA showed pyuria. Culture has since grown Suha. She reports falling 2 days prior to admission. CT scan showed old lacunar infarcts but no acute change. She had transient hypotension which responded to fluid. She currently denies headache. She is alert. She complains of chronic back pain Exam (PN)-Nephrology - Vital Signs Vital signs: Period Temp Pulse Resp BP Sys/Willams Pulse Ox Last 24 Hr 97.2 F-98.0 F 53-88 16-22 96-146/39-63 97-99 Exam: Gen.: Alert and oriented x3. ENT: Pupils equal round reactive to light. EOMs intact. Mucous membranes moist. Neck: Supple. No JVD or bruit. Cardiovascular: Regular rate and rhythm. No murmur rub or gallop Lungs: Clear Abdomen: Soft. Nontender. Positive bowel sounds. No organomegaly Extremities: No edema - Lab 01/29/17 04:48 01/30/17 05:15 Most recent lab results Calcium 8.7 MG/DL (8.5-10.1) 01/30/17 05:15 Magnesium 2.6 MG/DL (1.8-2.4) H 01/30/17 05:15 Assessment and Plan (1) ESRD (end stage renal disease) on dialysis Status: Chronic Assessment and plan: 66-year-old woman with: * ESRD. Dialysis TTS * UTI. Culture shows yeast. Diflucan added * Altered mental status. Improved. CT negative * Colon cancer. Status post recent right hemicolectomy * Diabetes mellitus * Hypertension * Chronic back pain. Compression fracture Current Visit: No (2) UTI (urinary tract infection) Status: Acute Current Visit: Yes Qualifiers: Urinary tract infection type: acute cystitis Hematuria presence: without hematuria Qualified Code(s): N30.00 - Acute cystitis without hematuria (3) Compression fracture of L3 lumbar vertebra Status: Acute Current Visit: No (4) Hypotension Status: Acute Current Visit: No (5) Intractable back pain Status: Acute Current Visit: No (6) CAD (coronary artery disease) Status: Chronic Current Visit: No Qualifiers: Coronary Disease-Associated Artery/Lesion type: [place] artery [place] vs. transplanted heart: [place] heart Associated angina: without angina Qualified Code(s): I25.10 - Atherosclerotic heart disease of [place] coronary artery without angina pectoris (7) Colon cancer Status: Chronic Current Visit: No Qualifiers: Colon location: ascending Qualified Code(s): C18.2 - Malignant neoplasm of ascending colon (8) Diabetes Status: Chronic Current Visit: No Qualifiers: Diabetes mellitus type: type 2 Diabetes mellitus complication status: with kidney complications Diabetes mellitus complication detail: with chronic kidney disease Diabetes mellitus terminal supervisor insulin use: with terminal supervisor use Chronic kidney disease stage: on chronic dialysis Qualified Code(s): E11.22 - Type 2 diabetes mellitus with diabetic chronic kidney disease; N18.6 - End stage renal disease; Z79.4 - [facility] (current) use of insulin; Z99.2 - Dependence on renal dialysis (9) Diabetes mellitus Status: Chronic Current Visit: No Qualifiers: Diabetes mellitus type: type 2 Diabetes mellitus complication detail: with chronic kidney disease Diabetes mellitus terminal supervisor insulin use: with jail use Chronic kidney disease stage: on chronic dialysis (10) status post right hemicolectomy Status: Resolved Current Visit: No
[2017-01-31] MEDS: ALBUTEROL/IPRATROPIUM 3 ML NEB RESP TX SCH ×5 (03:30→19:29)
[2017-01-31] MEDS: CHOLECALCIFEROL 1,000 UNIT TABLET PO SCH (09:02)
[2017-01-31] MEDS: PANTOPRAZOLE 40 MG TABLET PO SCH (09:02)
[2017-01-31] MEDS: FUROSEMIDE 80 MG TABLET PO SCH (09:02)
[2017-01-31] MEDS: ASPIRIN CHEW 81 MG TABLET PO SCH (09:02)
[2017-01-31] MEDS: GABAPENTIN 300 MG CAPSULE PO SCH ×2 (09:02→20:55)
[2017-01-31] MEDS: FLUCONAZOLE 100 MG TABLET PO SCH ×2 (09:02→09:05)
[2017-01-31] MEDS: CHLORHEXIDINE 4% SOLN 118 ML BOTTLE TOP SCH (09:03)
[2017-01-31] MEDS: ZINC OXIDE PASTE 113 GM TUBE TOP SCH ×2 (09:03→21:03)
[2017-01-31] MEDS: INSULIN LISPRO 100 UNIT/ML SUBCUT SCH ×2 (09:04→16:38)
[2017-01-31] MEDS ORDERED: HEPARIN 10,000 UNIT/10 ML VIAL IV SCH (11:00)
--- NOTE | 2017-01-31 11:17 | Nephrology Progress Note ---
Nephrology - PN: Subj Interval history: She is seen during dialysis. Systolic pressure stable in the 130s. No shortness of breath. Back pain slightly better Exam (PN)-Nephrology - Vital Signs Vital signs: Period Temp Pulse Resp BP Sys/Willams Pulse Ox Last 24 Hr 97.4 F-98.0 F 59-88 18-22 99-133/39-58 92-100 Exam: Gen.: Alert and oriented x3. ENT: Pupils equal round reactive to light. EOMs intact. Mucous membranes moist. Neck: Supple. No JVD or bruit. Cardiovascular: Regular rate and rhythm. No murmur rub or gallop Lungs: Clear Abdomen: Soft. Nontender. Positive bowel sounds. No organomegaly Extremities: No edema - Lab 01/29/17 04:48 01/30/17 05:15 Most recent lab results Calcium 8.7 MG/DL (8.5-10.1) 01/30/17 05:15 Magnesium 2.6 MG/DL (1.8-2.4) H 01/30/17 05:15 Assessment and Plan (1) ESRD (end stage renal disease) on dialysis Status: Chronic Assessment and plan: 66-year-old woman with: * ESRD. Dialysis TTS * UTI. Culture shows yeast. on Diflucan * Altered mental status. Improved. CT negative * Colon cancer. Status post recent right hemicolectomy * Diabetes mellitus * Hypertension * Chronic back pain. Compression fracture * Tremor. Neurology consulted Current Visit: No (2) UTI (urinary tract infection) Status: Acute Current Visit: Yes Qualifiers: Urinary tract infection type: acute cystitis Hematuria presence: without hematuria Qualified Code(s): N30.00 - Acute cystitis without hematuria (3) Compression fracture of L3 lumbar vertebra Status: Acute Current Visit: No (4) Hypotension Status: Acute Current Visit: No (5) Intractable back pain Status: Acute Current Visit: No (6) CAD (coronary artery disease) Status: Chronic Current Visit: No Qualifiers: Coronary Disease-Associated Artery/Lesion type: [place] artery [place] vs. transplanted heart: [place] heart Associated angina: without angina Qualified Code(s): I25.10 - Atherosclerotic heart disease of [place] coronary artery without angina pectoris (7) Colon cancer Status: Chronic Current Visit: No Qualifiers: Colon location: ascending Qualified Code(s): C18.2 - Malignant neoplasm of ascending colon (8) Diabetes Status: Chronic Current Visit: No Qualifiers: Diabetes mellitus type: type 2 Diabetes mellitus complication status: with kidney complications Diabetes mellitus complication detail: with chronic kidney disease Diabetes mellitus prison insulin use: with exterminator helper use Chronic kidney disease stage: on chronic dialysis Qualified Code(s): E11.22 - Type 2 diabetes mellitus with diabetic chronic kidney disease; N18.6 - End stage renal disease; Z79.4 - care home (current) use of insulin; Z99.2 - Dependence on renal dialysis (9) Diabetes mellitus Status: Chronic Current Visit: No Qualifiers: Diabetes mellitus type: type 2 Diabetes mellitus complication detail: with chronic kidney disease Diabetes mellitus exterminator helper insulin use: with prison use Chronic kidney disease stage: on chronic dialysis (10) status post right hemicolectomy Status: Resolved Current Visit: No
[2017-01-31] MEDS: cefTRIAXone 1,000 MG in SODIUM CHLORIDE 0.9% 100 ML IV SCH (13:52)
[2017-01-31] MEDS: ENOXAPARIN 30 MG/0.3 ML SYRINGE SUBCUT SCH (13:52)
--- NOTE | 2017-01-31 15:17 | Neurology Consult Note ---
History of Present Illness History of present illness: Ms. Fuchs is a 66 year old -[place] lady with history of CAD status post CABG followed by Dr. Balderas, history of stroke, end-stage renal disease on hemodialysis on Monday with Dr. Glover, diabetes, hypertension , hyperlipidemia, chronic wound left lower extremity followed by Dr. Miguel Munroe in the wound center, colon cancer status post colectomy by Dr. Rivera III in October, Mediport placement 3 days ago to start chemo next week with Dr. Rolon, chronic back pain with multiple injections by Dr. Muhammad presenting to the ED with a fall with increasing back pain and altered mental status. She also developed some occasional tremors. Tremors occurs when she tries to do something. Is not always there. She is very weak and has difficulty in walking. CT of the head reveals no acute abnormalities. Home Medications Medication Instructions Recorded Confirmed Type Meclizine HCl 25 mg PO BEDTIME PRN 01/19/16 01/28/17 History Cholecalciferol [Vitamin D3] 2,000 unit PO QAM 03/28/16 01/28/17 History Insulin Aspart Prot/Asp 70/30 10 unit SUBCUT DIRECTED PRN 03/28/16 01/28/17 History [NovoLOG Mix 70/30] Gabapentin 300 mg PO BID 03/29/16 01/28/17 History Amiodarone Tab [Cordarone Tab] 200 mg PO BEDTIME 06/22/16 01/28/17 History Insulin Lispro [HumaLOG] See Protocol SUBCUT ACHS unit 09/12/16 01/28/17 Rx Atorvastatin [Lipitor] 20 mg PO QAM 11/14/16 01/28/17 History Aspirin Chew Tab 81 mg PO QAM 01/28/17 01/28/17 History Furosemide [Furosemide] 80 mg PO QAM 01/28/17 01/28/17 History HYDROcodone/ACETAMIN 7.5-325 1 tablet PO Q4H PRN 01/28/17 01/28/17 History [[place] 7.5-325] Oxycodone HCl 5 - 10 mg PO QID PRN 01/28/17 01/28/17 History Pantoprazole Tab [Protonix Tab] 40 mg PO QAM 01/28/17 01/28/17 History Pregabalin [Lyrica] 75 mg PO TID 01/28/17 01/28/17 History Sucralfate 1 gm PO ACHS 01/28/17 01/28/17 History hydrALAZINE TAB [Apresoline Tab] 100 mg PO TID 01/28/17 01/28/17 History Allergies Allergy/AdvReac Type Severity Reaction Status Date / Time No Known Allergies Allergy Verified 01/28/17 05:43 12 point system: reviewed and no additional remarkable complaints except as stated Medical,Surgical,& Family Hx - Medical History Cardio: History of: CHF, CAD, Hypertension (medication), [place], PVD, Cardiovascular Problems (dr balderas.) Psychological: History of: Anxiety Disorders, Depression Neurology: History of: Peripheral Neuropathy (medication), TIA (2 months ago.), Vertigo No history of: Brain Aneurysm, Dementia, Seizures HEENT: History of: Eye Problem (related to diabetes; READING GLASSES), Dental Problems Endocrine: History of: Diabetes Mellitus (IDDM), Diabetes Mellitus (NIDDM), Dyslipidemia Respiratory: History of: Respiratory Problems (had flu vaccine up to date with pneun vaccine) Renal: History of: Dialysis (CHEST CATHETERS AV FISTULA, [place] [place], [place], [place] Renal Failure (DR GLOVER.), Renal Problems Gastrointestinal: History of: GERD (medication), Hematochezia, Polyps, Gastrointestinal Cancer, GI Problems (HX BLOOD IN STOOL) Musculoskeletal: History of: Back/Neck Problems (Back pain), Degenerative Disk Disease No history of: Amputation Comment Only: Musculoskeletal Problems (ARTHRITIS) Hematology: History of: Anemia (chronic disease), Blood Transfusion Reaction (3 months ago) Reproductive: No history of: Abnormal Pap Smear, Breast Cancer, Reproductive Cancer Other: History of: Cancer No history of: Anesthesia Reactions - Surgical History Cardiac Surgeries: Sugical HX of: Femoral-Popliteal Bypass Graft, Cardiac Catheterization, Cardiac Surgery (Bypass), Carotid Endarterectomy (08/24/16), Vascular Access Devices (dialysis graft LEFT arm; Dialysis catheters in right subclavin) Thoracic Surgeries: Patient denies;: Organ Transplant, Lobectomy Neurologic Surgeries: Patient denies: Brain Aneurysm, Neurologic Surgery HEENT Surgeries: Surgical HX of: Carotid Endarterectomy (08/24/16), Eye Surgery ( BILATERAL cataract sugery) Patient denies: Thyroid Surgery, Tonsilectomy & Adenoidectomy Abdominal Surgeries: Surgical HX of: Abdominal Surgery (colon surgery.), Colonoscopy (PER DR WATKINS IN JULY), EGD Patient denies: Appendectomy, Cholecystectomy, Gastric Bypass Surgery, Hernia Repair Reproductive Surgeries: Surgical HX of;: Dilation and Curettage, Gynecologic Surgery Patient denies;: Genitourinary Surgery Orthopedic Surgeries: Surgical HX of;: Implanted Devices (PORT IN RT UPPER CHEST , FISTULA LEFT ARM.), Spinal Surgery (Injections for pain. CEMENT IN BACK X2.) Patient denies;: Orthopedic Surgery - Family History Family History: Reports;: Family Cancer (MOTHER (breast)), Family Diabetes ( Mother), Family Heart Disease (sister, brother), Family Hypertension (sister, brother) Denies;: Family Anesthesia Reaction, Family Psychiatric Problems, Family Stroke - Social History Smoking Status: Never smoker Frequency of Alcohol Use: None Type of Drug Use: None Exam - Constitutional Vitals: Period Temp Pulse Resp BP Sys/Willams Pulse Ox Last 24 Hr 97.4 F-98.0 F 59-71 18-22 99-133/39-58 92-100 Exam: GENERAL: Patient is in no acute distress. NECK: Neck is supple. There is no JVD. No carotid bruits present. No thyroid masses. CVS: First and second heart sounds are normal. There is no S3 present. Regular rate and rhythm. RESPIRATORY: Lungs are clear to auscultation without any rales or rhonchi. ABDOMEN: Soft and non-tender. Bowel sounds are present. There is no hepatosplenomegaly. EXT: There is no palpable edema. Peripheral pulses are present. Skin: No rashes Central Nervous system: General: Alert, awake and Oriented x 3 Speech: Fluent Comprehension: Intact and normal Facial expressions: Normal Cranial Nerves: CN1/Olfactory: Normal CN II/ Optic: Normal, Visual [place] unreliable CN III, and : MART & EOMI CN V: Normal & intact CN VII: face is symmetric CNVIII: Normal CN XI/X/XI/XII: Intact and Normal Motor: Bilateral flapping hand tremors Strength in the right 3/5 Strength in the left 3/5 Sensory: Decreased for all the modalities of PP, LT and temp sense Reflexes: 1+ and symmetrical Cerebellar function: Not tested at this time Toes: Equivocal Gait: Not tested Results - Labs CBC & BMP: 01/29/17 04:48 01/30/17 05:15 Assessment and Plan (1) [place]ix[place] Status: Acute Assessment and plan: This is likely due to metabolic disorder. No evidence of essential tremors, parkinsonian tremors. Patient symptoms are very mild at this time and does not require any management Current Visit: Yes (2) Debility Status: Acute Assessment and plan: Consult TMR Thank you for the consult Current Visit: Yes
[2017-01-31] MEDS ORDERED: VANCOMYCIN INJ 750 MG in SODIUM CHLORIDE 0.9% 250 ML IV ONE (17:00)
[2017-01-31] MEDS: AMIODARONE 200 MG TABLET PO SCH (20:55)
[2017-02-01] MEDS: ALBUTEROL/IPRATROPIUM 3 ML NEB RESP TX SCH ×6 (00:10→19:37)
[2017-02-01] MEDS: FUROSEMIDE 80 MG TABLET PO SCH (08:50)
[2017-02-01] MEDS: FLUCONAZOLE 100 MG TABLET PO SCH ×2 (08:50→08:52)
[2017-02-01] MEDS: PANTOPRAZOLE 40 MG TABLET PO SCH (08:50)
[2017-02-01] MEDS: CHOLECALCIFEROL 1,000 UNIT TABLET PO SCH (08:50)
[2017-02-01] MEDS: GABAPENTIN 300 MG CAPSULE PO SCH ×2 (08:50→20:11)
[2017-02-01] MEDS: ASPIRIN CHEW 81 MG TABLET PO SCH (08:50)
[2017-02-01] MEDS: INSULIN LISPRO 100 UNIT/ML SUBCUT SCH ×2 (08:52→17:07)
[2017-02-01] MEDS: CHLORHEXIDINE 4% SOLN 118 ML BOTTLE TOP SCH (08:52)
[2017-02-01] MEDS: ZINC OXIDE PASTE 113 GM TUBE TOP SCH ×2 (08:52→20:11)
[2017-02-01] MEDS: cefTRIAXone 1,000 MG in SODIUM CHLORIDE 0.9% 100 ML IV SCH (10:59)
[2017-02-01] MEDS: ENOXAPARIN 30 MG/0.3 ML SYRINGE SUBCUT SCH (10:59)
--- NOTE | 2017-02-01 13:03 | Nephrology Progress Note ---
Nephrology - PN: Subj Interval history: She is more alert today. She feels better overall. She is anxious to begin physical therapy Exam (PN)-Nephrology - Vital Signs Vital signs: Period Temp Pulse Resp BP Sys/Willams Pulse Ox Last 24 Hr 97.2 F-101.7 F 49-69 16-20 116-149/47-81 90-100 Exam: ENT: Normal Cardiovascular: Regular rate and rhythm. No murmur rub or gallop Lungs: Clear Extremities: Trace edema - Lab 01/29/17 04:48 01/30/17 05:15 Most recent lab results Calcium 8.7 MG/DL (8.5-10.1) 01/30/17 05:15 Magnesium 2.6 MG/DL (1.8-2.4) H 01/30/17 05:15 Assessment and Plan (1) ESRD (end stage renal disease) on dialysis Status: Chronic Assessment and plan: 66-year-old woman with: * ESRD. Dialysis TTS * UTI. Culture shows yeast. on Diflucan * Altered mental status. Improved. CT negative * Colon cancer. Status post recent right hemicolectomy * Diabetes mellitus * Hypertension * Chronic back pain. Compression fracture * Tremor. Neurology has seen. Begin physical therapy Current Visit: No (2) UTI (urinary tract infection) Status: Acute Current Visit: Yes Qualifiers: Urinary tract infection type: acute cystitis Hematuria presence: without hematuria Qualified Code(s): N30.00 - Acute cystitis without hematuria (3) Compression fracture of L3 lumbar vertebra Status: Acute Current Visit: No (4) Hypotension Status: Acute Current Visit: No (5) Intractable back pain Status: Acute Current Visit: No (6) CAD (coronary artery disease) Status: Chronic Current Visit: No Qualifiers: Coronary Disease-Associated Artery/Lesion type: [place] artery [place] vs. transplanted heart: [place] heart Associated angina: without angina Qualified Code(s): I25.10 - Atherosclerotic heart disease of [place] coronary artery without angina pectoris (7) Colon cancer Status: Chronic Current Visit: No Qualifiers: Colon location: ascending Qualified Code(s): C18.2 - Malignant neoplasm of ascending colon (8) Diabetes Status: Chronic Current Visit: No Qualifiers: Diabetes mellitus type: type 2 Diabetes mellitus complication status: with kidney complications Diabetes mellitus complication detail: with chronic kidney disease Diabetes mellitus petroleum terminal plant operator insulin use: with petroleum terminal plant operator use Chronic kidney disease stage: on chronic dialysis Qualified Code(s): E11.22 - Type 2 diabetes mellitus with diabetic chronic kidney disease; N18.6 - End stage renal disease; Z79.4 - longterm (current) use of insulin; Z99.2 - Dependence on renal dialysis (9) Diabetes mellitus Status: Chronic Current Visit: No Qualifiers: Diabetes mellitus type: type 2 Diabetes mellitus complication detail: with chronic kidney disease Diabetes mellitus chcf insulin use: with chcf use Chronic kidney disease stage: on chronic dialysis (10) status post right hemicolectomy Status: Resolved Current Visit: No
--- NOTE | 2017-02-01 16:59 | Hospitalist Progress Note ---
Hospitalist: Subjective Interval history: 66-year-old -[place]is[place] female with history of ESRD on HD. Patient has a cough and fever today. Tremors are better. Exam - Constitutional Vitals: Period Temp Pulse Resp BP Sys/Willams Pulse Ox Last 24 Hr 97.2 F-101.7 F 55-67 16-20 106-149/46-81 77-100 Exam: General: No Acute Distress HEENT: Normocephalic, atraumatic, Extra ocular movements intact Neck: Supple, No JVD Chest: Clear to auscultation B/L CV: S1 + S2 audible without murmur, gallop or rub Abd: soft, NT, Non-distended, BS + Ext: No edema Skin: No purpura, bruising or rash Rheumatologic: No Joint deformities Neurologic: Awake and alert Results - Labs CBC & BMP: 01/29/17 04:48 01/30/17 05:15 - Impressions Assessment and Plan: ESRD on HD Status: Chronic Current Visit: Yes Suha tropicalis UTI Status: Acute Current Visit: Yes ID consult Severe osteoporosis with compression fracture of L3 lumbar vertebra and intractable low back pain Status: Acute Current Visit: No Pain controlled with physical therapy and rehab CAD Status: Chronic Current Visit: No Colon cancer status post right hemicolectomy Status: Chronic Current Visit: No Chemotherapy as an outpatient. She does have a Chemo-Port Diabetes mellitus Status: Chronic Current Visit: No
--- NOTE | 2017-02-01 18:56 | XRay Report ---
History: Cough and fever Date: 02/01/2017 Study: Chest x-ray AP portable Comparison exam: January 28, 2017 The right IJ dialysis catheter is well-positioned. The left subclavian Mediport catheter is well-positioned. There is cardiomegaly. There is pulmonary vascular engorgement. The mediastinal contours are unchanged in this patient status post prior median sternotomy. There is patchy and hazy edema in the lower lung zones, right greater than left. There is mild right greater than left pleural effusion. Osseous structures are unchanged. Impression: Cardiomegaly and evidence of CHF with or without superimposed right basilar pneumonia PROCEDURE INTERPRETED AT [facility] DEPARTMENT OF RADIOLOGY Final Report Signed by: Dr. Abigail Botello
[2017-02-01] MEDS: AMIODARONE 200 MG TABLET PO SCH (20:11)
[2017-02-02] MEDS: ALBUTEROL/IPRATROPIUM 3 ML NEB RESP TX SCH ×6 (00:23→19:32)
[2017-02-02] MEDS: guaiFENesin/DM ER 600-30 MG TABLET PO PRN (03:51)
[2017-02-02] MEDS: ENOXAPARIN 30 MG/0.3 ML SYRINGE SUBCUT SCH ×2 (08:30→11:53)
[2017-02-02] MEDS: GABAPENTIN 300 MG CAPSULE PO SCH ×2 (08:31→21:28)
[2017-02-02] MEDS: CHOLECALCIFEROL 1,000 UNIT TABLET PO SCH (08:31)
[2017-02-02] MEDS: PANTOPRAZOLE 40 MG TABLET PO SCH (08:31)
[2017-02-02] MEDS: ASPIRIN CHEW 81 MG TABLET PO SCH (08:31)
[2017-02-02] MEDS: FLUCONAZOLE 100 MG TABLET PO SCH ×2 (08:32→11:53)
[2017-02-02] MEDS: INSULIN LISPRO 100 UNIT/ML SUBCUT SCH ×2 (11:08→16:41)
[2017-02-02] MEDS: FUROSEMIDE 80 MG TABLET PO SCH (15:22)
[2017-02-02] MEDS: CHLORHEXIDINE 4% SOLN 118 ML BOTTLE TOP SCH (15:23)
[2017-02-02] MEDS: ZINC OXIDE PASTE 113 GM TUBE TOP SCH ×2 (15:23→21:28)
[2017-02-02] MEDS: cefTRIAXone 1,000 MG in SODIUM CHLORIDE 0.9% 100 ML IV SCH (15:23)
--- NOTE | 2017-02-02 16:30 | Infectious Disease Consult ---
Assessment and Plan (1) Candiduria Status: Acute Assessment and plan: I think the patient is colonized with Suha and does not have actual UTI. She will have an abnormal urinalysis given that she has end-stage renal disease and is oliguric. Treatment of the Suha in the urine is not indicated. She was having intermittent low-grade fevers but no obvious source of infection with blood cultures being negative. We can monitor the fever curve over the next 24 hours. If she spikes fever again we may have to consider spinal infection given that she gets frequent back injections. Thank you very much for the consult. Current Visit: Yes (2) Altered mental status Status: Acute Current Visit: Yes (3) Hypertension Problem details: BP trending low since volume removal with HD yesterday. Stopped clonidine, reduced norvasc to 5mg daily to allow enough BP for additional volume removal tomorrow with day #3/3 initiation. Status: Acute Current Visit: No (4) Atrial fibrillation Status: Chronic Current Visit: No Qualifiers: Atrial fibrillation type: paroxysmal Qualified Code(s): I48.0 - Paroxysmal atrial fibrillation (5) CAD (coronary artery disease) Status: Chronic Current Visit: No Qualifiers: Coronary Disease-Associated Artery/Lesion type: [place] artery [place] vs. transplanted heart: [place] heart Associated angina: without angina Qualified Code(s): I25.10 - Atherosclerotic heart disease of [place] coronary artery without angina pectoris (6) Diabetes Status: Chronic Current Visit: No Qualifiers: Diabetes mellitus type: type 2 Diabetes mellitus complication status: with kidney complications Diabetes mellitus complication detail: with chronic kidney disease Diabetes mellitus nursing home insulin use: with nursing home use Chronic kidney disease stage: on chronic dialysis Qualified Code(s): E11.22 - Type 2 diabetes mellitus with diabetic chronic kidney disease; N18.6 - End stage renal disease; Z79.4 - snf (current) use of insulin; Z99.2 - Dependence on renal dialysis (7) ESRD (end stage renal disease) on dialysis Problem details: Routine CHD today. Orders written. Status: Chronic Assessment and plan: Discussed with Dr. Glover will check with surgery if the patient's fistula is mature so we can get her hemodialysis catheter removed to eliminate a potential source of infection. Current Visit: No History of Present Illness Chief complaint: Suha UTI History of present illness: Ms. Fuchs is a 66 year old female admitted 5 days ago after she fell and hit her head. She apparently was somewhat altered when she came in. After she came she was having intermittent fever. Cultures done including of the urine and there was significant pyuria and the urine was positive for Suha tropicalis. Patient has been on hemodialysis for almost a year and is oliguric , she says she passes urine maybe once per week. Never any irritative urinary symptoms. Last fever was 100.7 last evening. Today she is feeling generally better. She denies nausea vomiting and diarrhea, no cough or shortness of breath, she does have chronic back pain and has been getting back injections at the pain clinic. Home Medications Medication Instructions Recorded Confirmed Type Meclizine HCl 25 mg PO BEDTIME PRN 01/18/01/28/17 History Cholecalciferol [Vitamin D3] 2,000 unit PO QAM 03/28/16 01/28/17 History Insulin Aspart Prot/Asp 70/30 10 unit SUBCUT DIRECTED PRN 03/28/16 01/28/17 History [NovoLOG Mix 70/30] Gabapentin 300 mg PO BID 03/29/16 01/28/17 History Amiodarone Tab [Cordarone Tab] 200 mg PO BEDTIME 06/22/16 01/28/17 History Insulin Lispro [HumaLOG] See Protocol SUBCUT ACHS unit 09/12/16 01/28/17 Rx Atorvastatin [Lipitor] 20 mg PO QAM 11/14/16 01/28/17 History Aspirin Chew Tab 81 mg PO QAM 01/28/17 01/28/17 History Furosemide [Furosemide] 80 mg PO QAM 01/28/17 01/28/17 History HYDROcodone/ACETAMIN 7.5-325 1 tablet PO Q4H PRN 01/28/17 01/28/17 History [[place] 7.5-325] Oxycodone HCl 5 - 10 mg PO QID PRN 01/28/17 01/28/17 History Pantoprazole Tab [Protonix Tab] 40 mg PO QAM 01/28/17 01/28/17 History Pregabalin [Lyrica] 75 mg PO TID 01/28/17 01/28/17 History Sucralfate 1 gm PO ACHS 01/28/17 01/28/17 History hydrALAZINE TAB [Apresoline Tab] 100 mg PO TID 01/28/17 01/28/17 History Allergies Allergy/AdvReac Type Severity Reaction Status Date / Time No Known Allergies Allergy Verified 01/28/17 05:43 12 point system: reviewed and no additional remarkable complaints except as stated (Per HPI) Medical,Surgical,& Family Hx - Medical History Cardio: History of: CHF, CAD, Hypertension (medication), [place], PVD, Cardiovascular Problems (dr anderson.) Psychological: History of: Anxiety Disorders, Depression Neurology: History of: Peripheral Neuropathy (medication), TIA (2 months ago.), Vertigo No history of: Brain Aneurysm, Dementia, Seizures HEENT: History of: Eye Problem (related to diabetes; READING GLASSES), Dental Problems Endocrine: History of: Diabetes Mellitus (IDDM), Diabetes Mellitus (NIDDM), Dyslipidemia Respiratory: History of: Respiratory Problems (had flu vaccine up to date with pneun vaccine) Renal: History of: Dialysis (CHEST CATHETERS AV FISTULA, TUES, [place], [place], [place] Renal Failure (DR GLOVER.), Renal Problems Gastrointestinal: History of: GERD (medication), Hematochezia, Polyps, Gastrointestinal Cancer, GI Problems (HX BLOOD IN STOOL) Musculoskeletal: History of: Back/Neck Problems (Back pain), Degenerative Disk Disease No history of: Amputation Comment Only: Musculoskeletal Problems (ARTHRITIS) Hematology: History of: Anemia (chronic disease), Blood Transfusion Reaction (3 months ago) Reproductive: No history of: Abnormal Pap Smear, Breast Cancer, Reproductive Cancer Other: History of: Cancer No history of: Anesthesia Reactions - Surgical History Cardiac Surgeries: Sugical HX of: Femoral-Popliteal Bypass Graft, Cardiac Catheterization, Cardiac Surgery (Bypass), Carotid Endarterectomy (08/24/16), Vascular Access Devices (dialysis graft LEFT arm; Dialysis catheters in right subclavin) Thoracic Surgeries: Patient denies;: Organ Transplant, Lobectomy Neurologic Surgeries: Patient denies: Brain Aneurysm, Neurologic Surgery HEENT Surgeries: Surgical HX of: Carotid Endarterectomy (08/24/16), Eye Surgery ( BILATERAL cataract sugery) Patient denies: Thyroid Surgery, Tonsilectomy & Adenoidectomy Abdominal Surgeries: Surgical HX of: Abdominal Surgery (colon surgery.), Colonoscopy (PER DR WATKINS IN JULY), EGD Patient denies: Appendectomy, Cholecystectomy, Gastric Bypass Surgery, Hernia Repair Reproductive Surgeries: Surgical HX of;: Dilation and Curettage, Gynecologic Surgery Patient denies;: Genitourinary Surgery Orthopedic Surgeries: Surgical HX of;: Implanted Devices (PORT IN RT UPPER CHEST , FISTULA LEFT ARM.), Spinal Surgery (Injections for pain. CEMENT IN BACK X2.) Patient denies;: Orthopedic Surgery - Family History Family History: Reports;: Family Cancer (MOTHER (breast)), Family Diabetes ( Mother), Family Heart Disease (sister, brother), Family Hypertension (sister, brother) Denies;: Family Anesthesia Reaction, Family Psychiatric Problems, Family Stroke - Social History Smoking Status: Never smoker Frequency of Alcohol Use: None Type of Drug Use: None Infectious Disease Exam H&P - Constitutional Vitals: Vital Signs Temp Pulse Resp BP Pulse Ox 98.2 F 71 18 150/67 100 02/02/17 14:03 02/02/17 14:22 02/02/17 14:22 02/02/17 14:03 02/02/17 14:22 Intake and Output 02/02/17 02/02/17 02/02/17 07:59 15:59 23:59 Intake Total 120 / 120 200 / 200 Output Total 0 / 0 Balance 120 / 120 200 / 200 Intake: Oral 120 / 120 200 / 200 Output: Urine 0 / 0 Stool 0 / 0 Other: Weight 91.711 kg Patient Weight 02/02/17 23:59 Weight 91.711 kg Exam: General: Patient comfortable, nontoxic appearing, interactive HEENT: Mucous membranes pale pink and moist, anicteric acyanotic, MART, no oral exudates Neck: Supple, no thyroid gland enlargement Respiratory system: Breath sounds vesicular, no crepitations or wheezes Cardiovascular: Tunneled hemodialysis catheter the right subclavian area, newly placed MediPort left subclavian region without overlying erythema, no drainage, normal S1 and S2, no murmurs appreciated Abdomen: Normal bowel sounds, soft nontender throughout, no organomegaly or mass Genitourinary: No suprapubic pain or bladder distention Extremities: no edema, AV fistula to left arm with good thrill Skin: No rash Reports - Labs CBC & BMP: 01/29/17 04:48 01/30/17 05:15 Labs: Laboratory Results - last 24 hr 02/01/17 02/02/17 02/02/17 16:59 05:53 06:26 POC Glucose 108 H 104 Random Vancomycin 17.1 - Reports Microbiology: Microbiology 01/28/17 11:51 Blood Culture - Final Blood No growth at 5 days 01/28/17 11:51 Blood Culture - Final Blood No growth at 5 days - Diagnostic Findings Procedure: Chest x-ray: report reviewed by me (No acute)
--- NOTE | 2017-02-02 16:41 | Hospitalist Progress Note ---
Hospitalist: Subjective Interval history: Patient is awake and comfortable today. Exam - Constitutional Vitals: Period Temp Pulse Resp BP Sys/Willams Pulse Ox Last 24 Hr 96.5 F-100.7 F 61-75 16-20 117-150/44-72 90-100 Exam: General: No Acute Distress HEENT: Normocephalic, atraumatic, Extra ocular movements intact Neck: Supple, No JVD Chest: Clear to auscultation B/L CV: S1 + S2 audible without murmur, gallop or rub Abd: soft, NT, Non-distended, BS + Ext: No edema Skin: No purpura, bruising or rash Rheumatologic: No Joint deformities Neurologic: Awake and alert Results - Labs CBC & BMP: 01/29/17 04:48 01/30/17 05:15 - Impressions Assessment and Plan: ESRD on HD Status: Chronic Current Visit: Yes Suha tropicalis UTI Status: Acute Current Visit: Yes Patient has been evaluate by Dr. Mendoza, this is colonization does not need treatment Severe osteoporosis with compression fracture of L3 lumbar vertebra and intractable low back pain Status: Acute Current Visit: No Pain controlled with physical therapy and rehab CAD Status: Chronic Current Visit: No Colon cancer status post right hemicolectomy Status: Chronic Current Visit: No Chemotherapy as an outpatient. She does have a Chemo-Port Diabetes mellitus Status: Chronic Current Visit: No
[2017-02-02] MEDS ORDERED: VANCOMYCIN INJ 750 MG in SODIUM CHLORIDE 0.9% 250 ML IV ONE (17:00)
[2017-02-02] MEDS: AMIODARONE 200 MG TABLET PO SCH (21:28)
[2017-02-03] MEDS: ALBUTEROL/IPRATROPIUM 3 ML NEB RESP TX SCH ×7 (00:14→23:20)
[2017-02-03] MEDS: ENOXAPARIN 30 MG/0.3 ML SYRINGE SUBCUT SCH (09:47)
[2017-02-03] MEDS: GABAPENTIN 300 MG CAPSULE PO SCH ×2 (09:48→20:53)
[2017-02-03] MEDS: FLUCONAZOLE 100 MG TABLET PO SCH ×2 (09:48→09:49)
[2017-02-03] MEDS: FUROSEMIDE 80 MG TABLET PO SCH (09:48)
[2017-02-03] MEDS: CHOLECALCIFEROL 1,000 UNIT TABLET PO SCH (09:48)
[2017-02-03] MEDS: PANTOPRAZOLE 40 MG TABLET PO SCH (09:48)
[2017-02-03] MEDS: ASPIRIN CHEW 81 MG TABLET PO SCH (09:48)
[2017-02-03] MEDS: ZINC OXIDE PASTE 113 GM TUBE TOP SCH ×2 (09:49→20:54)
[2017-02-03] MEDS: INSULIN LISPRO 100 UNIT/ML SUBCUT SCH ×2 (09:49→16:01)
[2017-02-03] MEDS: CHLORHEXIDINE 4% SOLN 118 ML BOTTLE TOP SCH (09:50)
[2017-02-03] MEDS: cefTRIAXone 1,000 MG in SODIUM CHLORIDE 0.9% 100 ML IV SCH (10:39)
--- NOTE | 2017-02-03 12:46 | Infectious Disease Progress ---
Assessment and Plan (1) Candiduria Status: Acute Assessment and plan: This is colonization and not infection. Treatment not indicated thus will stop the fluconazole. Patient had fever earlier during the admission but that has resolved. No obvious source of bacterial infection. Antibiotics will promote overgrowth of Suha therefore will stop the antibiotics. Can monitor temperature curve. I will sign off. Call again as needed. Current Visit: Yes (2) Altered mental status Status: Acute Current Visit: Yes (3) Hypertension Problem details: BP trending low since volume removal with HD yesterday. Stopped clonidine, reduced norvasc to 5mg daily to allow enough BP for additional volume removal tomorrow with day #3/3 initiation. Status: Acute Current Visit: No (4) Atrial fibrillation Status: Chronic Current Visit: No Qualifiers: Atrial fibrillation type: paroxysmal Qualified Code(s): I48.0 - Paroxysmal atrial fibrillation (5) CAD (coronary artery disease) Status: Chronic Current Visit: No Qualifiers: Coronary Disease-Associated Artery/Lesion type: [place] artery [place] vs. transplanted heart: [place] heart Associated angina: without angina Qualified Code(s): I25.10 - Atherosclerotic heart disease of [place] coronary artery without angina pectoris (6) Diabetes Status: Chronic Current Visit: No Qualifiers: Diabetes mellitus type: type 2 Diabetes mellitus complication status: with kidney complications Diabetes mellitus complication detail: with chronic kidney disease Diabetes mellitus long term care phlebotomist insulin use: with senior care use Chronic kidney disease stage: on chronic dialysis Qualified Code(s): E11.22 - Type 2 diabetes mellitus with diabetic chronic kidney disease; N18.6 - End stage renal disease; 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 Orders written. Status: Chronic Current Visit: No Infectious Disease - PN: Subj Interval history: Patient doing okay, no fever for over 48 hours. She does not feel as if she has a focus of infection anywhere. Feels almost back to her normal self. Infectious Disease Exam (PN) - Constitutional Vitals: Temp Pulse Resp BP Pulse Ox 98.3 F 64 18 144/64 99 02/03/17 07:45 02/03/17 11:24 02/03/17 11:24 02/03/17 07:45 02/03/17 11:24 General appearance: mild distress Exam: General appearance: no acute distress - Eye Eye exam: Present: EOMI. no icterus Pupils: Present: MART - ENT ENT exam: no oral exudates - Respiratory Respiratory exam: vesicular BS, no crepitations or wheezes - Cardiovascular Cardiovascular exam: regular rate and rhythm, no murmurs - GI/Abdominal GI/Abdominal exam: normal bowel sounds, soft, non-tender, no organomegaly or mass - Extremities Exam Extremities exam: no edema - Skin Skin exam: no rash Results - Labs CBC & BMP: 01/29/17 04:48 01/30/17 05:15 Lab Results: I have reviewed the past 24 hour labs
--- NOTE | 2017-02-03 16:11 | Hospitalist Progress Note ---
Hospitalist: Subjective Interval history: Patient is doing better with physical therapy. States she is feeling better. Exam - Constitutional Vitals: Period Temp Pulse Resp BP Sys/Willams Pulse Ox Last 24 Hr 97.9 F-99.0 F 62-71 16-20 121-150/49-64 95-100 Exam: General: No Acute Distress HEENT: Normocephalic, atraumatic, Extra ocular movements intact Neck: Supple, No JVD Chest: Clear to auscultation B/L CV: S1 + S2 audible without murmur, gallop or rub Abd: soft, NT, Non-distended, BS + Ext: No edema Skin: No purpura, bruising or rash Rheumatologic: No Joint deformities Neurologic: Awake and alert Results - Labs CBC & BMP: 01/29/17 04:48 01/30/17 05:15 - Impressions Assessment and Plan: ESRD on HD Status: Chronic Current Visit: Yes Suha tropicalis UTI Status: Acute Current Visit: Yes Patient has been evaluate by Dr. Mendoza, this is colonization does not need treatment Severe osteoporosis with compression fracture of L3 lumbar vertebra and intractable low back pain Status: Acute Current Visit: No Pain controlled with physical therapy and rehab CAD Status: Chronic Current Visit: No Colon cancer status post right hemicolectomy Status: Chronic Current Visit: No Chemotherapy as an outpatient. She does have a Chemo-Port Diabetes mellitus Status: Chronic Current Visit: No Discharge plan to swing bed
--- NOTE | 2017-02-03 17:26 | Nephrology Progress Note ---
Nephrology - PN: Subj Interval history: This is a late entry note for 02/02/2017. She was seen during dialysis. Blood pressure stable. Mental status improved. No S OB Exam (PN)-Nephrology - Vital Signs Vital signs: Period Temp Pulse Resp BP Sys/Willams Pulse Ox Last 24 Hr 97.9 F-99.0 F 62-71 16-20 121-150/49-64 95-100 Exam: ENT: Normal Cardiovascular: Regular rate and rhythm. No murmur rub or gallop Lungs: Clear Extremities: Trace edema - Lab 01/29/17 04:48 01/30/17 05:15 Most recent lab results Calcium 8.7 MG/DL (8.5-10.1) 01/30/17 05:15 Magnesium 2.6 MG/DL (1.8-2.4) H 01/30/17 05:15 Assessment and Plan (1) ESRD (end stage renal disease) on dialysis Status: Chronic Assessment and plan: 66-year-old woman with: * ESRD. Stable during dialysis * UTI. Culture shows yeast. on Diflucan * Altered mental status. Improved. CT negative * Colon cancer. Status post recent right hemicolectomy * Diabetes mellitus * Hypertension * Chronic back pain. Compression fracture * Tremor. Neurology has seen. Begin physical therapy Current Visit: No (2) UTI (urinary tract infection) Status: Acute Current Visit: Yes Qualifiers: Urinary tract infection type: acute cystitis Hematuria presence: without hematuria Qualified Code(s): N30.00 - Acute cystitis without hematuria (3) Compression fracture of L3 lumbar vertebra Status: Acute Current Visit: No (4) Hypotension Status: Acute Current Visit: No (5) Intractable back pain Status: Acute Current Visit: No (6) CAD (coronary artery disease) Status: Chronic Current Visit: No Qualifiers: Coronary Disease-Associated Artery/Lesion type: [place] artery [place] vs. transplanted heart: [place] heart Associated angina: without angina Qualified Code(s): I25.10 - Atherosclerotic heart disease of [place] coronary artery without angina pectoris (7) Colon cancer Status: Chronic Current Visit: No Qualifiers: Colon location: ascending Qualified Code(s): C18.2 - Malignant neoplasm of ascending colon (8) Diabetes Status: Chronic Current Visit: No Qualifiers: Diabetes mellitus type: type 2 Diabetes mellitus complication status: with kidney complications Diabetes mellitus complication detail: with chronic kidney disease Diabetes mellitus superintendent container terminal insulin use: with care home use Chronic kidney disease stage: on chronic dialysis Qualified Code(s): E11.22 - Type 2 diabetes mellitus with diabetic chronic kidney disease; N18.6 - End stage renal disease; Z79.4 - group home (current) use of insulin; Z99.2 - Dependence on renal dialysis (9) Diabetes mellitus Status: Chronic Current Visit: No Qualifiers: Diabetes mellitus type: type 2 Diabetes mellitus complication detail: with chronic kidney disease Diabetes mellitus superintendent container terminal insulin use: with care home use Chronic kidney disease stage: on chronic dialysis (10) status post right hemicolectomy Status: Resolved Current Visit: No
--- NOTE | 2017-02-03 17:28 | Nephrology Progress Note ---
Nephrology - PN: Subj Interval history: She is awake and alert. Mental status back to baseline. No S OB or GI symptoms. Exam (PN)-Nephrology - Vital Signs Vital signs: Period Temp Pulse Resp BP Sys/Willams Pulse Ox Last 24 Hr 97.9 F-99.0 F 62-71 16-20 121-150/49-64 95-100 Exam: Gen.: Alert and oriented x3. ENT: Pupils equal round reactive to light. EOMs intact. Mucous membranes moist. Neck: Supple. No JVD or bruit. Cardiovascular: Regular rate and rhythm. No murmur rub or gallop Lungs: Clear Abdomen: Soft. Nontender. Positive bowel sounds. No organomegaly Extremities: Trace edema - Lab 01/29/17 04:48 01/30/17 05:15 Most recent lab results Calcium 8.7 MG/DL (8.5-10.1) 01/30/17 05:15 Magnesium 2.6 MG/DL (1.8-2.4) H 01/30/17 05:15 Assessment and Plan (1) ESRD (end stage renal disease) on dialysis Status: Chronic Assessment and plan: 66-year-old woman with: * ESRD. Dialysis TTS. * UTI. Culture shows yeast. on Diflucan * Altered mental status. Resolved * Colon cancer. Status post recent right hemicolectomy * Diabetes mellitus * Hypertension * Chronic back pain. Compression fracture * Tremor. Neurology has seen. Begin physical therapy Current Visit: No (2) UTI (urinary tract infection) Status: Acute Current Visit: Yes Qualifiers: Urinary tract infection type: acute cystitis Hematuria presence: without hematuria Qualified Code(s): N30.00 - Acute cystitis without hematuria (3) Compression fracture of L3 lumbar vertebra Status: Acute Current Visit: No (4) Hypotension Status: Acute Current Visit: No (5) Intractable back pain Status: Acute Current Visit: No (6) CAD (coronary artery disease) Status: Chronic Current Visit: No Qualifiers: Coronary Disease-Associated Artery/Lesion type: [place] artery [place] vs. transplanted heart: [place] heart Associated angina: without angina Qualified Code(s): I25.10 - Atherosclerotic heart disease of [place] coronary artery without angina pectoris (7) Colon cancer Status: Chronic Current Visit: No Qualifiers: Colon location: ascending Qualified Code(s): C18.2 - Malignant neoplasm of ascending colon (8) Diabetes Status: Chronic Current Visit: No Qualifiers: Diabetes mellitus type: type 2 Diabetes mellitus complication status: with kidney complications Diabetes mellitus complication detail: with chronic kidney disease Diabetes mellitus intermediate frame tender insulin use: with assisted use Chronic kidney disease stage: on chronic dialysis Qualified Code(s): E11.22 - Type 2 diabetes mellitus with diabetic chronic kidney disease; N18.6 - End stage renal disease; Z79.4 - skilled nursing (current) use of insulin; Z99.2 - Dependence on renal dialysis (9) Diabetes mellitus Status: Chronic Current Visit: No Qualifiers: Diabetes mellitus type: type 2 Diabetes mellitus complication detail: with chronic kidney disease Diabetes mellitus assisted insulin use: with intermediate frame tender use Chronic kidney disease stage: on chronic dialysis (10) status post right hemicolectomy Status: Resolved Current Visit: No
[2017-02-03] MEDS: AMIODARONE 200 MG TABLET PO SCH (20:53)
[2017-02-04] MEDS: ALBUTEROL/IPRATROPIUM 3 ML NEB RESP TX SCH ×6 (03:22→23:39)
--- NOTE | 2017-02-04 11:03 | Dialysis Note ---
Dialysis Note - Dialysis Note Ms. Fuchs is seen during her hemodialysis. She is stable hemodynamically and reports feeling well today. Plan is to continue with her usual dialysis schedule
--- NOTE | 2017-02-04 14:24 | Hospitalist Progress Note ---
Assessment and Plan (1) UTI (urinary tract infection) Status: Acute Assessment and plan: She has had some yeast patient has been on fluconazole in the past few days. Should discontinue after 5 days of treatment. Current Visit: Yes Qualifiers: Urinary tract infection type: acute cystitis Hematuria presence: without hematuria Qualified Code(s): N30.00 - Acute cystitis without hematuria (2) Acute exacerbation of CHF (congestive heart failure) Status: Acute Assessment and plan: This is resolved Current Visit: No (3) Acute on chronic renal failure Status: Acute Current Visit: No (4) Colon cancer Status: Chronic Assessment and plan: Plan for chemotherapy after discharge Current Visit: No Qualifiers: Colon location: ascending Qualified Code(s): C18.2 - Malignant neoplasm of ascending colon (5) Diabetes mellitus Status: Chronic Assessment and plan: Continue current management Current Visit: No Qualifiers: Diabetes mellitus type: type 2 Diabetes mellitus complication detail: with chronic kidney disease Diabetes mellitus superintendent marine oil terminal insulin use: with superintendent marine oil terminal use Chronic kidney disease stage: on chronic dialysis Hospitalist: Subjective Interval history: Patient was seen interviewed and examined and chart has been reviewed admitted to the hospital with multiple medical problems some of them quite chronic. Initial was with mental status change noted pyuria she grew yeast in the urine. History of intractable back pain with history of compression fractures history of colon cancer status post debulking history of coronary artery disease history of essential hypertension end-stage renal disease on hemodialysis history PVD status post right hemicolectomy. Exam - Constitutional Vitals: Period Temp Pulse Resp BP Sys/Willams Pulse Ox Last 24 Hr 97.7 F-99.3 F 60-71 17-20 132-144/48-66 95-100 General appearance: morbidly obese - Head Head exam: Present: normocephalic - Eye Eye exam: Present: EOMI Pupils: Present: MART - Cardiovascular Cardiovascular exam: Present: regular rate and rhythm - GI/Abdominal GI/Abdominal exam: Present: normal bowel sounds, soft - Extremities Exam Extremities exam: Present: other - Neurological Exam Neurological exam: Present: alert, oriented X3 (Generalized weakness), CN II- XII intact - Psychiatric Psychiatric exam: Present: normal affect, normal mood - Skin Skin exam: Present: warm, dry Results - Labs CBC & BMP: 01/29/17 04:48 01/30/17 05:15 Lab Results: I have reviewed the past 24 hour labs
[2017-02-04] MEDS: ZINC OXIDE PASTE 113 GM TUBE TOP SCH ×2 (14:49→21:09)
[2017-02-04] MEDS: PANTOPRAZOLE 40 MG TABLET PO SCH (14:49)
[2017-02-04] MEDS: ASPIRIN CHEW 81 MG TABLET PO SCH (14:49)
[2017-02-04] MEDS: CHOLECALCIFEROL 1,000 UNIT TABLET PO SCH (14:49)
[2017-02-04] MEDS: FUROSEMIDE 80 MG TABLET PO SCH (14:49)
[2017-02-04] MEDS: GABAPENTIN 300 MG CAPSULE PO SCH ×2 (14:49→20:36)
[2017-02-04] MEDS: INSULIN LISPRO 100 UNIT/ML SUBCUT SCH ×2 (14:49→17:18)
[2017-02-04] MEDS: CHLORHEXIDINE 4% SOLN 118 ML BOTTLE TOP SCH (14:50)
[2017-02-04] MEDS: ENOXAPARIN 30 MG/0.3 ML SYRINGE SUBCUT SCH (14:50)
[2017-02-04] MEDS: guaiFENesin/DM ER 600-30 MG TABLET PO PRN (14:56)
[2017-02-04] MEDS: AMIODARONE 200 MG TABLET PO SCH (20:36)
[2017-02-05] MEDS: ALBUTEROL/IPRATROPIUM 3 ML NEB RESP TX SCH ×6 (03:51→23:31)
[2017-02-05] MEDS: INSULIN LISPRO 100 UNIT/ML SUBCUT SCH ×2 (09:31→17:27)
--- NOTE | 2017-02-05 09:35 | Nephrology Progress Note ---
Nephrology - PN: Subj Interval history: Ms. Fuchs was seen in follow-up of her end-stage renal disease. She is doing well and is in no distress. She has visitors today and it is quite cheerful. Today is her birthday. Her chest is clear no changes were made. Exam (PN)-Nephrology - Vital Signs Vital signs: Period Temp Pulse Resp BP Sys/Willams Pulse Ox Last 24 Hr 97.0 F-98.9 F 61-90 17-19 119-147/50-72 93-99 - Lab 01/29/17 04:48 01/30/17 05:15 Most recent lab results Calcium 8.7 MG/DL (8.5-10.1) 01/30/17 05:15 Magnesium 2.6 MG/DL (1.8-2.4) H 01/30/17 05:15
[2017-02-05] MEDS: ENOXAPARIN 30 MG/0.3 ML SYRINGE SUBCUT SCH (09:39)
[2017-02-05] MEDS: GABAPENTIN 300 MG CAPSULE PO SCH ×2 (09:40→20:57)
[2017-02-05] MEDS: PANTOPRAZOLE 40 MG TABLET PO SCH (09:40)
[2017-02-05] MEDS: CHOLECALCIFEROL 1,000 UNIT TABLET PO SCH (09:40)
[2017-02-05] MEDS: ZINC OXIDE PASTE 113 GM TUBE TOP SCH ×2 (09:40→20:57)
[2017-02-05] MEDS: ASPIRIN CHEW 81 MG TABLET PO SCH (09:40)
[2017-02-05] MEDS: FUROSEMIDE 80 MG TABLET PO SCH (09:40)
[2017-02-05] MEDS: CHLORHEXIDINE 4% SOLN 118 ML BOTTLE TOP SCH (09:40)
--- NOTE | 2017-02-05 12:25 | Hospitalist Progress Note ---
Assessment and Plan (1) Diabetes Status: Chronic Assessment and plan: Patient continues to do her on current treatment. We will continue with this treatment plan. Current Visit: No Qualifiers: Diabetes mellitus type: type 2 Diabetes mellitus complication status: with kidney complications Diabetes mellitus complication detail: with chronic kidney disease Diabetes mellitus snf insulin use: with snf use Chronic kidney disease stage: on chronic dialysis Qualified Code(s): E11.22 - Type 2 diabetes mellitus with diabetic chronic kidney disease; N18.6 - End stage renal disease; Z79.4 - ferry terminal supervisor (current) use of insulin; Z99.2 - Dependence on renal dialysis (2) Chronic kidney disease, stage IV (severe) Status: Chronic Assessment and plan: Explosives Detonator on the case patient is on dialysis Current Visit: No (3) UTI (urinary tract infection) Status: Acute Assessment and plan: She has had some yeast patient has been on fluconazole in the past few days. Should discontinue after 5 days of treatment. Current Visit: Yes Qualifiers: Urinary tract infection type: acute cystitis Hematuria presence: without hematuria Qualified Code(s): N30.00 - Acute cystitis without hematuria (4) Acute exacerbation of CHF (congestive heart failure) Status: Acute Assessment and plan: This is resolved Current Visit: No (5) CAD (coronary artery disease) Status: Chronic Assessment and plan: Stable no chest pains Current Visit: No Qualifiers: Coronary Disease-Associated Artery/Lesion type: [place] artery [place] vs. transplanted heart: [place] heart Associated angina: without angina Qualified Code(s): I25.10 - Atherosclerotic heart disease of [place] coronary artery without angina pectoris Hospitalist: Subjective Interval history: Patient has been seen interviewed and examined chart has been reviewed. She is in the hospital initially admitted with altered mental status found to have urinary tract infection that also grew a U a yeast. She has a history of intractable back pain history of compression fractures history of colon cancer. She has a Port-A-Cath for chemotherapy. When I took over the case information that she is waiting for a swing bed come tomorrow social service will jump on the issue again. Somehow she has been on telemetry all along she is normal sinus rhythm with therefore discontinue the telemetry. Exam - Constitutional Vitals: Period Temp Pulse Resp BP Sys/Willams Pulse Ox Last 24 Hr 97.0 F-98.9 F 61-90 16-19 119-155/50-72 93-99 General appearance: no acute distress, over weight, other (Very nice lady) - Head Head exam: Present: normocephalic, atraumatic - Eye Eye exam: Present: EOMI, other (Anicteric sclera no conjunctival petechia) Pupils: Present: MART - Respiratory Respiratory exam: Present: clear to auscultation bilaterally - Cardiovascular Cardiovascular exam: Present: regular rate and rhythm - Extremities Exam Extremities exam: Present: other (Generalized weakness) - Neurological Exam Neurological exam: Present: alert, oriented X3, CN II-XII intact - Psychiatric Psychiatric exam: Present: normal affect, normal mood - Skin Skin exam: Present: normal color, warm, dry, other (Port-A-Cath site is healing as is the venous entry site) Results - Labs CBC & BMP: 01/29/17 04:48 01/30/17 05:15 Lab Results: I have reviewed the past 24 hour labs
[2017-02-05] MEDS: AMIODARONE 200 MG TABLET PO SCH (20:57)
[2017-02-05] MEDS: guaiFENesin/DM ER 600-30 MG TABLET PO PRN (21:07)
[2017-02-06] MEDS: ALBUTEROL/IPRATROPIUM 3 ML NEB RESP TX SCH ×6 (03:44→23:12)
[2017-02-06] MEDS: FUROSEMIDE 80 MG TABLET PO SCH (08:01)
[2017-02-06] MEDS: CHLORHEXIDINE 4% SOLN 118 ML BOTTLE TOP SCH (08:02)
[2017-02-06] MEDS: INSULIN LISPRO 100 UNIT/ML SUBCUT SCH ×2 (08:02→16:12)
[2017-02-06] MEDS: ASPIRIN CHEW 81 MG TABLET PO SCH (08:02)
[2017-02-06] MEDS: GABAPENTIN 300 MG CAPSULE PO SCH ×3 (08:02→20:55)
[2017-02-06] MEDS: PANTOPRAZOLE 40 MG TABLET PO SCH (08:02)
[2017-02-06] MEDS: CHOLECALCIFEROL 1,000 UNIT TABLET PO SCH (08:02)
[2017-02-06] MEDS: guaiFENesin/DM ER 600-30 MG TABLET PO PRN (08:02)
[2017-02-06] MEDS: ZINC OXIDE PASTE 113 GM TUBE TOP SCH ×2 (08:02→20:11)
[2017-02-06] MEDS: ENOXAPARIN 30 MG/0.3 ML SYRINGE SUBCUT SCH (09:42)
--- NOTE | 2017-02-06 13:20 | Nephrology Progress Note ---
Nephrology - PN: Subj Interval history: She is up in the chair today. No shortness of breath Exam (PN)-Nephrology - Vital Signs Vital signs: Period Temp Pulse Resp BP Sys/Willams Pulse Ox Last 24 Hr 97.7 F-98.4 F 60-87 18-18 110-142/46-72 90-99 Exam: ENT: Normal Cardiovascular: Regular rate and rhythm. No murmur rub or gallop Lungs: Clear Extremities: Trace edema - Lab 01/29/17 04:48 01/30/17 05:15 Most recent lab results Calcium 8.7 MG/DL (8.5-10.1) 01/30/17 05:15 Magnesium 2.6 MG/DL (1.8-2.4) H 01/30/17 05:15 Assessment and Plan (1) ESRD (end stage renal disease) on dialysis Status: Chronic Assessment and plan: 66-year-old woman with: * ESRD. Dialysis TTS. * UTI. Resolved * Altered mental status. Resolved * Colon cancer. Status post recent right hemicolectomy * Diabetes mellitus * Hypertension * Chronic back pain. Compression fracture * Tremor. Neurology has seen. Begin physical therapy Current Visit: No (2) UTI (urinary tract infection) Status: Acute Current Visit: Yes Qualifiers: Urinary tract infection type: acute cystitis Hematuria presence: without hematuria Qualified Code(s): N30.00 - Acute cystitis without hematuria (3) Compression fracture of L3 lumbar vertebra Status: Acute Current Visit: No (4) Hypotension Status: Acute Current Visit: No (5) Intractable back pain Status: Acute Current Visit: No (6) CAD (coronary artery disease) Status: Chronic Current Visit: No Qualifiers: Coronary Disease-Associated Artery/Lesion type: [place] artery [place] vs. transplanted heart: [place] heart Associated angina: without angina Qualified Code(s): I25.10 - Atherosclerotic heart disease of [place] coronary artery without angina pectoris (7) Colon cancer Status: Chronic Current Visit: No Qualifiers: Colon location: ascending Qualified Code(s): C18.2 - Malignant neoplasm of ascending colon (8) Diabetes Status: Chronic Current Visit: No Qualifiers: Diabetes mellitus type: type 2 Diabetes mellitus complication status: with kidney complications Diabetes mellitus complication detail: with chronic kidney disease Diabetes mellitus termite technician insulin use: with nursing home use Chronic kidney disease stage: on chronic dialysis Qualified Code(s): E11.22 - Type 2 diabetes mellitus with diabetic chronic kidney disease; N18.6 - End stage renal disease; Z79.4 - manager intermediate (current) use of insulin; Z99.2 - Dependence on renal dialysis (9) Diabetes mellitus Status: Chronic Current Visit: No Qualifiers: Diabetes mellitus type: type 2 Diabetes mellitus complication detail: with chronic kidney disease Diabetes mellitus termite technician insulin use: with termite technician use Chronic kidney disease stage: on chronic dialysis (10) status post right hemicolectomy Status: Resolved Current Visit: No
--- NOTE | 2017-02-06 14:29 | Hospitalist Progress Note ---
Assessment and Plan (1) Altered mental status Status: Resolved Current Visit: Yes (2) Debility Status: Acute Assessment and plan: Physical therapy remains in progress. Case management has been consulted for swing bed placement. Current Visit: Yes (3) ESRD on hemodialysis Status: Chronic Assessment and plan: Hemodialysis per nephrology order on Monday, , and Monday. Current Visit: No Hospitalist: Subjective Interval history: Patient seen and examined; chart reviewed. No significant overnight events reported per staff. Awaiting swing bed placement. Will check with social service regarding pending placement. Exam - Constitutional Vitals: Period Temp Pulse Resp BP Sys/Willams Pulse Ox Last 24 Hr 97.7 F-98.4 F 60-87 18-18 110-142/46-72 90-99 General appearance: normal weight, no acute distress, mild distress - Head Head exam: Present: normal inspection, normocephalic, atraumatic - Eye Eye exam: Present: EOMI, conjunctival injection Pupils: Present: MART, normal accommodation - ENT ENT exam: Present: normal exam, normal external ear exam, normal oropharynx - Neck Neck exam: Present: normal inspection. Absent: lymphadenopathy, meningismus, tenderness, thyromegaly - Respiratory Respiratory exam: Present: clear to auscultation bilaterally. Absent: rales, rhonchi, stridor, wheezes - Cardiovascular Cardiovascular exam: Present: regular rate and rhythm. Absent: carotid bruit, diastolic murmur, gallop, JVD, rubs, systolic murmur - GI/Abdominal GI/Abdominal exam: Present: normal bowel sounds, soft - Extremities Exam Extremities exam: Present: normal inspection, normal capillary refill, full ROM , other - Back Exam Back exam: Present: normal inspection - Neurological Exam Neurological exam: Present: alert, oriented X3, CN II-XII intact - Psychiatric Psychiatric exam: Present: normal affect, normal mood - Skin Skin exam: Present: normal color, warm Results - Labs CBC & BMP: 01/29/17 04:48 01/30/17 05:15 Lab Results: I have reviewed the past 24 hour labs
--- NOTE | 2017-02-06 14:37 | Neurology Progress Note ---
Neurology - PN : Subjective Interval history: Tremors are much better. But is still extremely weak and debilitated. Can hardly walk Exam (Progress Note) - Constitutional Vitals: Period Temp Pulse Resp BP Sys/Willams Pulse Ox Last 24 Hr 97.7 F-98.4 F 60-87 18-18 110-142/46-72 90-99 Exam: GENERAL: Patient is in no acute distress. NECK: Neck is supple. There is no JVD. No carotid bruits present. No thyroid masses. CVS: First and second heart sounds are normal. There is no S3 present. Regular rate and rhythm. RESPIRATORY: Lungs are clear to auscultation without any rales or rhonchi. ABDOMEN: Soft and non-tender. Bowel sounds are present. There is no hepatosplenomegaly. EXT: There is no palpable edema. Peripheral pulses are present. Skin: No rashes Central Nervous system: General: Alert, awake and Oriented x 3 Speech: Fluent Comprehension: Intact and normal Facial expressions: Normal Cranial Nerves: CN1/Olfactory: Normal CN II/ Optic: Normal, Visual [place] unreliable CN III, and : MART & EOMI CN V: Normal & intact CN VII: face is symmetric CNVIII: Normal CN XI/X/XI/XII: Intact and Normal Motor: Bilateral flapping hand tremors Strength in the right 3/5 Strength in the left 3/5 Sensory: Decreased for all the modalities of PP, LT and temp sense Reflexes: 1+ and symmetrical Cerebellar function: Not tested at this time Toes: Equivocal Gait: Could not walk Results - Labs CBC & BMP: 01/29/17 04:48 01/30/17 05:15 Assessment and Plan (1) [place] Status: Acute Assessment and plan: This has resolved completely Current Visit: Yes (2) Debility Status: Acute Assessment and plan: Okay to go to [facility] when okay with PCP Sign off please call as needed Current Visit: Yes
--- NOTE | 2017-02-06 14:56 | Case Mgmt Physician Query Form ---
TB Signs and Symptoms Screening ([place]) INSTRUCTIONS: To be completed annually on residents/staff with a significant Tuberculin Skin Test (TST) upon admission/hire or a prior significant TST. To be completed on all staff at hire. Please respond to each listed symptom with an (X) in either the "YES" or "NO" box. Do you currently have any of the following symptoms: YES NO ( ) ( ) A cough If yes, is it: ( ) Productive ( ) Non- productive ( ) ( ) Hemoptysis (spitting up blood) ( ) ( ) Chest pains ( ) ( ) Weight Loss ( ) ( ) Fever ( ) ( ) Night Sweats ( ) ( ) Weakness ( ) ( ) Loss of Appetite ( ) ( ) Difficulty Breathing If you answered YES" to any of the above questions, how long have symptoms been present? If you have any questions, please contact me. Thank you, Chloe SMITH P: [phone] F: [phone] E: [email or web address]
[2017-02-06] MEDS ORDERED: TUBERCULIN SKIN TEST 0.1 ML SYRINGE INTRADERM ONE (15:00)
--- NOTE | 2017-02-06 16:45 | Sleep Medicine Progress Note ---
Assessment and Plan (1) Unspecified sleep apnea Status: Acute Assessment and plan: Given her clinical improvement, we will set her up for home sleep test tonight without oxygen. Oxygen certainly can be added if needed. Current Visit: Yes (2) Diabetes Status: Chronic Current Visit: No Qualifiers: Diabetes mellitus type: type 2 Diabetes mellitus complication status: with kidney complications Diabetes mellitus complication detail: with chronic kidney disease Diabetes mellitus intermediate insulin use: with intermediate use Chronic kidney disease stage: on chronic dialysis Qualified Code(s): E11.22 - Type 2 diabetes mellitus with diabetic chronic kidney disease; N18.6 - End stage renal disease; Z79.4 - freight sorter (current) use of insulin; Z99.2 - Dependence on renal dialysis (3) Essential hypertension Status: Chronic Current Visit: No Sleep Medicine Subjective Interval history: I stop back by to check on this patient today. She appears to be doing much better. Discharge is anticipated to rehab or swing bed soon. Given her clinical improvement, I do think that we can evaluate her tonight with home sleep testing. Preferably, I would like to do this without supplemental oxygen. She reports that her sats have been good. Exam (Progress Note) - Constitutional Vitals: Period Temp Pulse Resp BP Sys/Willams Pulse Ox Last 24 Hr 97.7 F-98.4 F 60-74 18-18 110-162/46-72 90-99 Exam: She is alert and responsive in no acute distress. Pupils equal round reactive to light and accommodation. Extraocular movements intact. Oropharynx with a class III Mallampati exam. Neck supple without adenopathy or thyromegaly. Chest with good air movement and no focal wheeze or rhonchi. Cardiac exam reveals a regular rhythm without murmur or gallop. Abdomen soft nontender extremities without increased edema. Results - Labs CBC & BMP: 01/29/17 04:48 01/30/17 05:15 Lab Results: I have reviewed the past 24 hour labs
[2017-02-06] MEDS: AMIODARONE 200 MG TABLET PO SCH ×2 (20:10→20:55)
[2017-02-06] MEDS ORDERED: SODIUM CHLORIDE 0.9% 500 ML IV ONE (20:25)
[2017-02-07] MEDS: ALBUTEROL/IPRATROPIUM 3 ML NEB RESP TX SCH ×6 (02:33→22:56)
[2017-02-07] MEDS: INSULIN LISPRO 100 UNIT/ML SUBCUT SCH ×2 (07:56→16:48)
--- NOTE | 2017-02-07 08:38 | Hospitalist Progress Note ---
<Farooq Fuchs - Last Filed: 02/07/17 08:36> Assessment and Plan (1) Debility Status: Acute Assessment and plan: Physical therapy remains in progress. Case management has been consulted for swing bed placement. 02/07-physical therapy remains in progress. The patient was referred to [facility] however she was denied. Case management has submitted a new referral for swing bed placement in [facility]. Current Visit: Yes (2) ESRD on hemodialysis Status: Chronic Assessment and plan: Hemodialysis per nephrology order on Monday, , and Monday. 02/07-hemodialysis scheduled for today per nephrology order. Current Visit: No Hospitalist: Subjective Interval history: Patient seen and examined; chart reviewed. No significant overnight events reported per staff. Awaiting swing bed placement. Exam - Constitutional Vitals: Period Temp Pulse Resp BP Sys/Willams Pulse Ox Last 24 Hr 97.2 F-98.4 F 54-74 16-183 110-162/53-69 90-100 General appearance: normal weight, no acute distress - Head Head exam: Present: normal inspection, normocephalic, atraumatic - Eye Eye exam: Present: EOMI. Absent: conjunctival injection Pupils: Present: MART, normal accommodation - ENT ENT exam: Present: normal exam, normal external ear exam, normal oropharynx - Neck Neck exam: Present: normal inspection. Absent: lymphadenopathy, meningismus, tenderness, thyromegaly - Respiratory Respiratory exam: Present: clear to auscultation bilaterally. Absent: rales, rhonchi, stridor, wheezes - Cardiovascular Cardiovascular exam: Present: regular rate and rhythm, other (AV fistula to left upper arm; LifePort noted to right upper chest.). Absent: carotid bruit, diastolic murmur, gallop, irregular rhythm, JVD, rubs, systolic murmur, tachycardia - GI/Abdominal GI/Abdominal exam: Present: normal bowel sounds, soft - Extremities Exam Extremities exam: Present: normal inspection, normal capillary refill, full ROM , other (Generalized weakness). Absent: edema - Back Exam Back exam: Present: normal inspection - Neurological Exam Neurological exam: Present: alert, oriented X3, CN II-XII intact, other ( Generalized weakness) - Psychiatric Psychiatric exam: Present: normal affect, normal mood - Skin Skin exam: Present: normal color, warm, dry Results - Labs CBC & BMP: 01/29/17 04:48 01/30/17 05:15 Lab Results: I have reviewed the past 24 hour labs <Lamonte Parr - Last Filed: 02/08/17 07:33> Hospitalist: Subjective Interval history: Patient is severely debilitated. She continues hemodialysis under the management of nephrology. She awaits discharge placement. Exam - Constitutional Vitals: Period Temp Pulse Resp BP Sys/Willams Pulse Ox Last 24 Hr 97.2 F-99.0 F 64-77 13-21 130-161/56-69 93-100 Results - Labs CBC & BMP: 01/29/17 04:48 01/30/17 05:15
[2017-02-07] MEDS: FUROSEMIDE 80 MG TABLET PO SCH (08:49)
[2017-02-07] MEDS: ASPIRIN CHEW 81 MG TABLET PO SCH (08:49)
[2017-02-07] MEDS: CHLORHEXIDINE 4% SOLN 118 ML BOTTLE TOP SCH (08:49)
[2017-02-07] MEDS: CHOLECALCIFEROL 1,000 UNIT TABLET PO SCH (08:49)
[2017-02-07] MEDS: ZINC OXIDE PASTE 113 GM TUBE TOP SCH ×2 (08:49→20:47)
[2017-02-07] MEDS: GABAPENTIN 300 MG CAPSULE PO SCH ×2 (08:49→20:46)
[2017-02-07] MEDS: PANTOPRAZOLE 40 MG TABLET PO SCH (08:50)
[2017-02-07] MEDS: ENOXAPARIN 30 MG/0.3 ML SYRINGE SUBCUT SCH (09:55)
--- NOTE | 2017-02-07 13:49 | Nephrology Progress Note ---
Nephrology - PN: Subj Interval history: She is seen during dialysis. No shortness of breath or GI symptoms Exam (PN)-Nephrology - Vital Signs Vital signs: Period Temp Pulse Resp BP Sys/Willams Pulse Ox Last 24 Hr 97.2 F-98.4 F 54-74 16-183 128-162/53-69 90-100 Exam: ENT: Normal Cardiovascular: Regular rate and rhythm. No murmur rub or gallop Lungs: Clear Extremities: No edema - Lab 01/29/17 04:48 01/30/17 05:15 Most recent lab results Calcium 8.7 MG/DL (8.5-10.1) 01/30/17 05:15 Magnesium 2.6 MG/DL (1.8-2.4) H 01/30/17 05:15 Assessment and Plan (1) ESRD (end stage renal disease) on dialysis Status: Chronic Assessment and plan: 66-year-old woman with: * ESRD. Stable during dialysis * UTI. Resolved * Colon cancer. Status post recent right hemicolectomy * Diabetes mellitus * Hypertension * Chronic back pain. Compression fracture * Tremor. Neurology has seen. Begin physical therapy Current Visit: No (2) UTI (urinary tract infection) Status: Acute Current Visit: Yes Qualifiers: Urinary tract infection type: acute cystitis Hematuria presence: without hematuria Qualified Code(s): N30.00 - Acute cystitis without hematuria (3) Compression fracture of L3 lumbar vertebra Status: Acute Current Visit: No (4) Hypotension Status: Acute Current Visit: No (5) Intractable back pain Status: Acute Current Visit: No (6) CAD (coronary artery disease) Status: Chronic Current Visit: No Qualifiers: Coronary Disease-Associated Artery/Lesion type: [place] artery [place] vs. transplanted heart: [place] heart Associated angina: without angina Qualified Code(s): I25.10 - Atherosclerotic heart disease of [place] coronary artery without angina pectoris (7) Colon cancer Status: Chronic Current Visit: No Qualifiers: Colon location: ascending Qualified Code(s): C18.2 - Malignant neoplasm of ascending colon (8) Diabetes Status: Chronic Current Visit: No Qualifiers: Diabetes mellitus type: type 2 Diabetes mellitus complication status: with kidney complications Diabetes mellitus complication detail: with chronic kidney disease Diabetes mellitus long-term insulin use: with termination clerk use Chronic kidney disease stage: on chronic dialysis Qualified Code(s): E11.22 - Type 2 diabetes mellitus with diabetic chronic kidney disease; N18.6 - End stage renal disease; Z79.4 - penitentiary (current) use of insulin; Z99.2 - Dependence on renal dialysis (9) Diabetes mellitus Status: Chronic Current Visit: No Qualifiers: Diabetes mellitus type: type 2 Diabetes mellitus complication detail: with chronic kidney disease Diabetes mellitus long-term insulin use: with long-term use Chronic kidney disease stage: on chronic dialysis (10) status post right hemicolectomy Status: Resolved Current Visit: No
--- NOTE | 2017-02-07 15:40 | Sleep Medicine Progress Note ---
Assessment and Plan (1) Unspecified sleep apnea Status: Acute Assessment and plan: Patient had a negative home sleep test last night and I will recommend holding off on an lab polysomnography at this time. Current Visit: Yes (2) Diabetes Status: Chronic Current Visit: No Qualifiers: Diabetes mellitus type: type 2 Diabetes mellitus complication status: with kidney complications Diabetes mellitus complication detail: with chronic kidney disease Diabetes mellitus nursing home insulin use: with termite control representative use Chronic kidney disease stage: on chronic dialysis Qualified Code(s): E11.22 - Type 2 diabetes mellitus with diabetic chronic kidney disease; N18.6 - End stage renal disease; Z79.4 - detention (current) use of insulin; Z99.2 - Dependence on renal dialysis (3) Essential hypertension Status: Chronic Current Visit: No Sleep Medicine Subjective Interval history: Patient had home sleep testing done last night and states that she rested very well with the device. She did not wear oxygen with study. This was basically a normal study and showed no evidence of significant sleep apnea. She did have mild brief O2 desaturation during sleep. Overall, this would suggest against clinically significant sleep apnea. At this point, I think we can hold off on in lab polysomnography Exam (Progress Note) - Constitutional Vitals: Period Temp Pulse Resp BP Sys/Willams Pulse Ox Last 24 Hr 97.2 F-98.4 F 54-74 16-183 128-162/53-69 90-100 Exam: She is alert and responsive in no acute distress. Pupils equal round reactive to light and accommodation. Extraocular movements intact. Oropharynx with a class III Mallampati exam. Neck supple without adenopathy or thyromegaly. Chest with good air movement and no focal wheeze or rhonchi. Cardiac exam reveals a regular rhythm without murmur or gallop. Abdomen soft nontender extremities without increased edema. Results - Labs CBC & BMP: 01/29/17 04:48 01/30/17 05:15 Lab Results: I have reviewed the past 24 hour labs
[2017-02-07] MEDS: AMIODARONE 200 MG TABLET PO SCH (20:46)
[2017-02-08] MEDS: ALBUTEROL/IPRATROPIUM 3 ML NEB RESP TX SCH ×4 (02:31→15:18)
[2017-02-08] MEDS: INSULIN LISPRO 100 UNIT/ML SUBCUT SCH (08:14)
--- NOTE | 2017-02-08 08:50 | Hospitalist Progress Note ---
<Farooq Fuchs - Last Filed: 02/08/17 08:48> Assessment and Plan (1) Debility Status: Acute Assessment and plan: Physical therapy remains in progress. Case management has been consulted for swing bed placement. 02/07-physical therapy remains in progress. The patient was referred to [facility] however she was denied. Case management has submitted a new referral for swing bed placement in [facility].. 02/08-continue physical therapy and occupational therapy as previously ordered. Awaiting swing bed placement. Current Visit: Yes (2) ESRD on hemodialysis Status: Chronic Assessment and plan: Hemodialysis per nephrology order on Monday, , and Monday. 02/07-hemodialysis scheduled for today per nephrology order. 02/08- nephrology to manage. Current Visit: No Hospitalist: Subjective Interval history: Patient seen and examined; chart reviewed. No significant overnight events reported per staff. Awaiting confirmation for swing bed placement. Exam - Constitutional Vitals: Period Temp Pulse Resp BP Sys/Willams Pulse Ox Last 24 Hr 97.6 F-99.0 F 68-77 13-21 130-148/56-70 93-100 General appearance: normal weight, no acute distress - Head Head exam: Present: normal inspection, normocephalic, atraumatic - Eye Eye exam: Present: EOMI. Absent: conjunctival injection Pupils: Present: MART, normal accommodation - ENT ENT exam: Present: normal exam, normal external ear exam, normal oropharynx - Neck Neck exam: Present: normal inspection. Absent: lymphadenopathy, meningismus, tenderness, thyromegaly - Respiratory Respiratory exam: Present: clear to auscultation bilaterally. Absent: rales, rhonchi, stridor, wheezes - Cardiovascular Cardiovascular exam: Present: regular rate and rhythm, other (AV fistula to left upper arm; LifePort noted to right upper chest). Absent: carotid bruit, diastolic murmur, gallop - GI/Abdominal GI/Abdominal exam: Present: normal bowel sounds, soft - Extremities Exam Extremities exam: Present: normal inspection, normal capillary refill, full ROM , edema - Back Exam Back exam: Present: normal inspection - Neurological Exam Neurological exam: Present: alert, oriented X3, CN II-XII intact, other ( Generalized weakness) - Psychiatric Psychiatric exam: Present: normal affect, normal mood - Skin Skin exam: Present: normal color, warm, dry Results - Labs CBC & BMP: 01/29/17 04:48 01/30/17 05:15 Lab Results: I have reviewed the past 24 hour labs <Lamonte Parr - Last Filed: 02/08/17 11:16> Hospitalist: Subjective Interval history: Patient is stable. She continues physical therapy while waiting swing bed placement. Exam - Constitutional Vitals: Period Temp Pulse Resp BP Sys/Willams Pulse Ox Last 24 Hr 97.6 F-99.0 F 68-77 13-21 130-148/56-70 93-100 Results - Labs CBC & BMP: 02/08/17 09:35 02/08/17 09:35
[2017-02-08 09:43] LABS: Basophils % 0.4 % (0.0-0.8); Eosinophils # 0.1 10*3/uL (0.0-0.87); Eosinophils % 0.8 % (0.00-10.9); Hemoglobin 8.7 GM/DL (12.0-16.0); Immature Granulocytes % 0.7 %; Immature Granulocytes Absolute 0.05 #; Lymphocytes # 0.4 10*3/uL (1.4-4.0); Lymphocytes % 4.9 % (21.3-54.2); Mean Corpuscular HGB Conc 31.1 GM/DL (32-36); Mean Corpuscular Hemoglobin 26 PG (27-34); Mean Corpuscular Volume 84.1 FL (87-102); Mean Platelet Volume 10.6 FL (9.6-12.0); Monocytes # 0.6 10*3/uL (0.11-0.8); Monocytes % 7.5 % (1.7-12.7); Neutrophils # 6.3 10*3/uL (1.4-7.4); Neutrophils % 85.7 % (38.7-73.9); Platelet Count 202 T/CUMM (130-400); Red Blood Count 3.33 MC/CUMM (3.8-5.5); Red Cell Distribution Width 18.5 % (9.3-17.3); White Blood Count 7.3 T/CUMM (4-12)
[2017-02-08 10:04] LABS: Eosinophils 1 % (0-10); Hypochromasia 1+; Lymphocytes 3 % (20-55); Microcytosis 1+; Ovalocytes Slight; Segmented Neutrophils 93 % (50-85); Total Cells Counted 100
[2017-02-08 10:05] LABS: Platelet Estimate Normal
[2017-02-08] MEDS: CHLORHEXIDINE 4% SOLN 118 ML BOTTLE TOP SCH (10:19)
[2017-02-08] MEDS: ZINC OXIDE PASTE 113 GM TUBE TOP SCH (10:19)
[2017-02-08 10:20] LABS: Calcium 8.3 MG/DL (8.5-10.1); Osmolality,Calculated 271.4 MOS/KG (273-304); Potassium 4.8 MMOL/L (3.5-5.1)
[2017-02-08] MEDS: ASPIRIN CHEW 81 MG TABLET PO SCH (10:29)
[2017-02-08] MEDS: FUROSEMIDE 80 MG TABLET PO SCH (10:29)
[2017-02-08] MEDS: GABAPENTIN 300 MG CAPSULE PO SCH (10:29)
[2017-02-08] MEDS: CHOLECALCIFEROL 1,000 UNIT TABLET PO SCH (10:30)
[2017-02-08] MEDS: PANTOPRAZOLE 40 MG TABLET PO SCH (10:30)
[2017-02-08] MEDS: ENOXAPARIN 30 MG/0.3 ML SYRINGE SUBCUT SCH (10:38)
--- NOTE | 2017-02-08 12:40 | Nephrology Progress Note ---
Nephrology - PN: Subj Interval history: No shortness of breath. She is afebrile. She continues to have back pain Exam (PN)-Nephrology - Vital Signs Vital signs: Period Temp Pulse Resp BP Sys/Willams Pulse Ox Last 24 Hr 97.6 F-99.0 F 68-77 13-21 130-148/56-70 93-100 Exam: ENT: Normal Cardiovascular: Regular rate and rhythm. No murmur rub or gallop Lungs: Clear Extremities: No edema - Lab 02/08/17 09:35 02/08/17 09:35 Most recent lab results Calcium 8.3 MG/DL (8.5-10.1) L 02/08/17 09:35 Magnesium 2.6 MG/DL (1.8-2.4) H 01/30/17 05:15 Assessment and Plan (1) ESRD (end stage renal disease) on dialysis Status: Resolved Assessment and plan: 66-year-old woman with: * ESRD. Dialysis TTS * UTI. Resolved * Colon cancer. Status post recent right hemicolectomy * Diabetes mellitus * Hypertension * Chronic back pain. Compression fracture Current Visit: No (2) UTI (urinary tract infection) Status: Acute Current Visit: Yes Qualifiers: Urinary tract infection type: acute cystitis Hematuria presence: without hematuria Qualified Code(s): N30.00 - Acute cystitis without hematuria (3) Compression fracture of L3 lumbar vertebra Status: Acute Current Visit: No (4) Hypotension Status: Acute Current Visit: No (5) Intractable back pain Status: Acute Current Visit: No (6) CAD (coronary artery disease) Status: Chronic Current Visit: No Qualifiers: Coronary Disease-Associated Artery/Lesion type: [place] artery [place] vs. transplanted heart: [place] heart Associated angina: without angina Qualified Code(s): I25.10 - Atherosclerotic heart disease of [place] coronary artery without angina pectoris (7) Colon cancer Status: Chronic Current Visit: No Qualifiers: Colon location: ascending Qualified Code(s): C18.2 - Malignant neoplasm of ascending colon (8) Diabetes Status: Chronic Current Visit: No Qualifiers: Diabetes mellitus type: type 2 Diabetes mellitus complication status: with kidney complications Diabetes mellitus complication detail: with chronic kidney disease Diabetes mellitus terminal operations manager insulin use: with fpc use Chronic kidney disease stage: on chronic dialysis Qualified Code(s): E11.22 - Type 2 diabetes mellitus with diabetic chronic kidney disease; N18.6 - End stage renal disease; Z79.4 - detention (current) use of insulin; Z99.2 - Dependence on renal dialysis (9) Diabetes mellitus Status: Chronic Current Visit: No Qualifiers: Diabetes mellitus type: type 2 Diabetes mellitus complication detail: with chronic kidney disease Diabetes mellitus terminal operations manager insulin use: with fpc use Chronic kidney disease stage: on chronic dialysis (10) status post right hemicolectomy Status: Resolved Current Visit: No
--- NOTE | 2017-02-08 13:24 | Case Mgmt Physician Query Form ---
TB Signs and Symptoms Screening ([place]) INSTRUCTIONS: To be completed annually on residents/staff with a significant Tuberculin Skin Test (TST) upon admission/hire or a prior significant TST. To be completed on all staff at hire. Please respond to each listed symptom with an (X) in either the "YES" or "NO" box. Do you currently have any of the following symptoms: YES NO ( ) ( x) A cough If yes, is it: ( ) Productive ( ) Non- productive ( ) (x ) Hemoptysis (spitting up blood) (x ) ( ) Chest pains ( ) ( x) Weight Loss ( ) (x ) Fever ( ) (x ) Night Sweats ( ) (x ) Weakness ( ) (x ) Loss of Appetite ( ) (x ) Difficulty Breathing If you answered YES" to any of the above questions, how long have symptoms been present? Comments: If you have any questions, please contact me . Thank you, Kyra SMITH Email: [email or web address]
--- NOTE | 2017-02-08 13:51 | Discharge Summary ---
Hospital Course - Hospital Course Hospital Course: This is a 66-year-old female of descent with a history of coronary artery disease status post coronary artery bypass graft surgery, previous stroke , end-stage renal disease on hemodialysis Monday with Dr. Nick, type 2 diabetes, hypertension, hyperlipidemia, chronic wouns, colon cancer found on screening colonoscopy for which she had a right hemicolectomy in October 2016, chronic diabetic foot ulcers which she is followed in the wound clinic who presents by EMS with altered mental status. According to the she went to sleep at 7 PM last evening and slept through the night until 2 AM when he heard her coughing. He attempted to wake her up and found her to be confused and apparently hard of hearing. The patient was able to answer questions in great detail for the medical interviewer although she did appear to be hard of hearing. The insists that she normally has no difficulty hearing and no difficulty speaking. In addition the patient fell yesterday hitting her head but was able to get up on her own and did not feel that she needed medical attention. She has chronic low back pain caused by osteoporosis and for which she has had 3 previous "cement injections." She was seen in consultation by Dr. Dickinson for assistance in management of her urinary tract infection. Patient was treated with intravenous antibiotics. She experienced substantial situational anxiety during her hospitalization requiring sedative medications to control. She was seen in consultation by Dr. Raymundo Damon of nephrology for management of her hemodialysis during her hospitalization. She was seen in consultation by Dr. Adenike Workman of sleep medicine for evaluation of obstructive sleep apnea. She remains severely debilitated throughout her hospitalization necessitating postponement of any chemotherapy for her colon cancer. She required analgesic medications for control of pain related to her cancer. She underwent physical and occupational therapy during her hospitalization. At the time of her discharge she was stable. Diagnosis - Discharge Diagnosis (1) Diabetes mellitus Status: Chronic (2) ESRD on hemodialysis Status: Chronic (3) status post right hemicolectomy Status: Chronic (4) UTI (urinary tract infection) Status: Acute (5) Unspecified sleep apnea Status: Chronic (6) Debility Status: Chronic Discharge Plan - Discharge Data Disposition: Swing Bed, Hos Based, [facility] Condition at Discharge: Stable Discharge Diet: advance to your usual diet Activity: resume usual activities as tolerated - Discharge Medications New Docusate Sodium Cap [Colace Cap] 100 mg PO BID PRN capsule PRN Reason: Constipation Enoxaparin [Lovenox] 30 mg SUBCUT Q24H syringe Pantoprazole Tab [Protonix Tab] 40 mg PO DAILY tablet Promethazine Inj [Phenergan Inj] 25 mg IM Q6H PRN vial PRN Reason: Nausea diphenhydrAMINE CAP [Benadryl Cap] 25 mg PO Q6H PRN capsule PRN Reason: Itching Ondansetron Inj [Zofran Inj] 4 mg IV Q4H PRN vial PRN Reason: Nausea Zinc Oxide Paste [Desitin Paste] 1 applic TOP BID applic Continue Meclizine HCl 25 mg PO BEDTIME PRN PRN Reason: Dizziness Insulin Aspart Prot/Asp 70/30 [NovoLOG Mix 70/30] 10 unit SUBCUT DIRECTED PRN PRN Reason: Glucose Management Cholecalciferol [Vitamin D3] 2,000 unit PO QAM Gabapentin 300 mg PO BID Amiodarone Tab [Cordarone Tab] 200 mg PO BEDTIME Insulin Lispro [HumaLOG] See Protocol SUBCUT ACHS unit Atorvastatin [Lipitor] 20 mg PO QAM hydrALAZINE TAB [Apresoline Tab] 100 mg PO TID Pregabalin [Lyrica] 75 mg PO TID Aspirin Chew Tab 81 mg PO QAM Furosemide 80 mg PO QAM Pantoprazole Tab [Protonix Tab] 40 mg PO QAM HYDROcodone/ACETAMIN 7.5-325 [Ider 7.5-325] 1 tablet PO Q4H PRN PRN Reason: Pain Sucralfate 1 gm PO ACHS Oxycodone HCl 5 - 10 mg PO QID PRN PRN Reason: Pain - Follow Up or Referral - Forms/Instructions Exam - Constitutional Vitals: Period Temp Pulse Resp BP Sys/Willams Pulse Ox Last 24 Hr 97.6 F-99.0 F 68-77 13-21 130-148/56-70 93-100 Discharge Results Labs on day of discharge: Labs from last 24 hours 02/08/17 02/08/17 02/08/17 09:35 09:35 07:31 WBC 7.3 RBC 3.33 L Hgb 8.7 L Hct 28.0 L MCV 84.1 L MCH 26 L MCHC 31.1 L RDW 18.5 H Plt Count 202 MPV 10.6 Neut % (Auto) 85.7 H Lymph % (Auto) 4.9 L [place] % (Auto) 7.5 Eos % (Auto) 0.8 Baso % (Auto) 0.4 Neut # (Auto) 6.3 Lymph # (Auto) 0.4 L [place] # (Auto) 0.6 Eos # (Auto) 0.1 Baso # (Auto) 0.0 Total Counted 100 Immature Gran % 0.7 Nucleated RBC % 0.0 Immature Gran # 0.05 Segmented Neutrophils 93 H Lymphocytes 3 L Monocytes 3 Eosinophils 1 Nucleated RBCs # 0.00 Platelet Estimate Normal Immature Plt Fraction 0.0 Hypochromasia 1+ Microcytosis 1+ Ovalocytes Slight Sodium 133 L Potassium 4.8 Chloride 97 L Carbon Dioxide 29 Anion Gap 11.8 BUN 24 H Creatinine 4.70 H GFR Calculation 12 BUN/Creatinine Ratio 5.00 L Glucose 137 H POC Glucose 113 H Calculated Osmolality 271.4 L Calcium 8.3 L 02/07/17 02/07/17 20:52 15:53 WBC RBC Hgb Hct MCV MCH MCHC RDW Plt Count MPV Neut % (Auto) Lymph % (Auto) [place] % (Auto) Eos % (Auto) Baso % (Auto) Neut # (Auto) Lymph # (Auto) [place] # (Auto) Eos # (Auto) Baso # (Auto) Total Counted Immature Gran % Nucleated RBC % Immature Gran # Segmented Neutrophils Lymphocytes Monocytes Eosinophils Nucleated RBCs # Platelet Estimate Immature Plt Fraction Hypochromasia Microcytosis Ovalocytes Sodium Potassium Chloride Carbon Dioxide Anion Gap BUN Creatinine GFR Calculation BUN/Creatinine Ratio Glucose POC Glucose 108 H 110 H Calculated Osmolality Calcium DS: Provider Date of admission: 01/28/17 09:52 Primary care physician: Kyra Fitzpatrick MD Attending physician on admission: Gregory Burrell MD Consults: 01/28/17 10:27 Consult to Physician [CONS] Routine Comment: HD pt of nick adm w ams Consulting Provider: Raymundo Damon Jr. When should Consulting Provider be notified: Now Person Notified: Dr. Damon Date Notified: 01/28/17 Consult Notification Comment: Zabrina RN 5E notified Dr. Damon per Thelma RN 5E 01/28/17 12:48 Consult to Pharmacy [CONS] Routine Reason for Pharmacy Consult: Dose/Manage Vancomycin 01/28/17 14:17 Consult to Sleep Center [CONS] Routine Reason for Sleep Center: Other Consult Comment: Sleep apnea score 4 01/30/17 10:24 Consult to Wound Care - [place] [CONS] Routine Reason for Wound Care: Wound Care Management Consult Comment: sacrum 01/30/17 14:06 Consult to Physician [CONS] Routine Comment: tremor,old CVA Consulting Provider: Shahzad Ren Consulting Provider Notified: No When should Consulting Provider be notified: Now Person Notified: Dr. Ren Date Notified: 01/30/17 Time Notified: 14:19 02/01/17 10:02 Consult to Case Mgmt/Social Srvs [CONS] Routine Reason for Case Mgmt/Social Srvs: Other Consult Comment: TMR Consult to Physical Therapy [CONS] Routine Reason for Physical Therapy: Evaluate and Treat 02/01/17 10:03 Consult to Occupational Therapy [CONS] Routine Reason for Occupational Therapy: Evaluate and Treat Start Therapy: Today 02/01/17 17:40 Consult to Physician [CONS] Routine Comment: Consult for Suha UTI Consulting Provider: Estela Lopez When should Consulting Provider be notified: In am When should Consulting Provider be notified: In am Person Notified: Chari Date Notified: 02/02/17 Time Notified: 10:19 Discharging clinician: Lamonte Parr
[2017-02-08 16:16] VITALS: BP 157/66
== END 2017-02-08 16:53 | DRG 871 ==
LOC: EDUNIT# → EDBD → N.ED 05:28 → SUATTDRO 09:52 → N.EDINP 10:09 → N.5E 11:20 → N.ICU 12:53 → N.5E 01-29 15:09
PROVIDERS: ADMIT Hospitalist